=== PATIENT | female | born 1945 | race Caucasian/White ===

== ENCOUNTER 2019-01-22 13:05 | Emergency (ER) | payer MEDICARE, SELFPAY ==
[2019-01-22 13:06] VITALS: BP 129/70; PULSE 98; RESP 15; TEMP 37.1; O2SAT 94; BMI 26.5
[2019-01-22 13:15] VITALS: BP 125/57; PULSE 89; PULSE 94; RESP 16; RESP 18; TEMP 37.1; O2SAT 96
[2019-01-22 13:20] VITALS: O2SAT 96
--- NOTE | 2019-01-22 14:05 | CT_ITS ---
STUDY: CT CHEST WITHOUT CONTRAST REASON FOR EXAM: Female, 73 years old. Cough Diagnosis of pneumonia. History of lung cancer RADIATION DOSAGE (If Supplied By Facility): CTDIvol = ( 9.43 ) mGy, DLP = ( 317.95 ) mGycm TECHNIQUE: Transaxial imaging was performed without the administration of intravenous contrast material. Individualized dose optimization techniques were used for this CT. COMPARISON: October 19, 2013 chest radiograph. FINDINGS: There is left lower lobe airspace disease noted with likely postoperative changes in the left hilar region. Platelike atelectasis and/or scarring also seen in the left lower lobe. Small ill-defined nodule in the right upper lobe measuring up to 4 mm which can be assessed with follow-up chest CT. Bilateral emphysematous changes. Reduced left-sided lung volume possibly relate with postoperative changes. Coronary vascular calcifications. Calcifications of the thoracic aorta. Pericardial thickening versus trace amount pericardial fluid. Small hiatal hernia. Small low-attenuation lesion in the left adrenal gland measuring up to 1.3 cm possibly adrenal adenoma Right-sided central line noted. Nonenlarged mediastinal lymph nodes. Degenerative changes in the thoracic spine with mild wedging of the T10 vertebral body possibly chronic. No retropulsion. IMPRESSION: Left perihilar and lower lobe airspace disease with postsurgical changes in the left hilum and reduced left-sided lung volume. Small nodule in the right upper lobe which can be assessed with follow-up chest CT in 3-6 months. Bilateral emphysema. Small left adrenal lesion likely an adenoma. Electronically Signed: Flynn Neves, at 14:58 EDT Tel , Service support , CT/Chest without Contrast
--- NOTE | 2019-01-22 15:27 | ED.DCSUM_ITS ---
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 She has undergone chemotherapy and radiation. Patient states that she was recently given a course of doxycycline for a cough. She states it did improve for short time but worsened again. She feels like she is a tickle in her throat causing her cough and does not have chest pain or tightness. Patient states that she was told about 2 weeks after her last CAT scan that it actually showed a left lower lobe pneumonia and that was when she was given doxycycline. Patient went to the urgent care today and was sent to the emergency room. Patient denies fever or chills. She has a dry hacking cough. She denies lung tightness, shortness of breath, or chest pain. - Past Medical History (1) Anxiety Status: Chronic (2) Brain mass Status: Chronic (3) Lung cancer Status: Chronic (4) Seizure Status: Chronic Past Medical History - Allergies and Home Meds Allergies/Adverse Reactions: Allergies Penicillins Allergy (Verified 01/22/19 13:06) Rash Primary Care Physician: Hipolito Renee MD [Primary Care Provider] - Doctors: Dr. Cardona Prior records reviewed: Yes Past Medical History: - - Reviewed Lives: Spouse/ Significant Other Smoking Status: Former smoker Review of Systems General: Denies: Chills, Fever Eyes: Denies: Visual changes - bilaterally ENT: Reports: - - Tickle in throat but no ear or throat pain.. Denies: Bilateral ear pain, Sore throat Cardiovascular: Denies: Chest pain, Palpitations Respiratory: Reports: Cough, Sputum. Denies: Dyspnea Gastrointestinal: Denies: Abdominal pain, Nausea, Vomiting Genitourinary: Denies: Dysuria Musculoskeletal: Reports: Back pain. Denies: Myalgias Neurological: Denies: Headache Endocrine: Denies: Polyuria, Polydipsia Hematologic: Denies: Easy bruising Allergy: Denies: Uticaria Physical Exam Vital Signs/Narrative: Vital Signs Temp Pulse Resp BP Pulse Ox 01/22/19 13:15 98.8 F 89 18 125/57 H 96 01/22/19 13:06 98.8 F 98 15 129/70 H 94 Inital Vital Signs reviewed: Yes General: Well nourished, Well developed ENT: Moist mucous membranes Neck: Supple Cardiovascular: Regular rate, Regular rhythm Respiratory: No distress, CTA bilaterally Abdomen: Soft, Nontender, Nondistended Extremities: Nontender, No edema Skin: Normal color, No rash Neurological: Alert, Oriented x3 Psychological: Normal affect Diagnostic/Tx/Re-eval Impressions Chest CT 01/22/19 14:05 IMPRESSION: Left perihilar and lower lobe airspace disease with postsurgical changes in the left hilum and reduced left-sided lung volume. Small nodule in the right upper lobe which can be assessed with follow-up chest CT in 3-6 months. Bilateral emphysema. Small left adrenal lesion likely an adenoma. Electronically Signed: Flynn Neves, at 14:58 EDT Tel , Service support , - Medical Decision Making I reviewed the CT report from the CAT scan of the chest performed in late November at [facility]. Today's reading sounds very similar in the left lower lobe consolidation that is noted is likely secondary to her tumor and not actual pneumonia. I spoke with Dr. Cardona. Because patient has been on 2 courses of antibiotics to cover atypicals and will improve for short time, should be treated with a short course of Levaquin. Patient is to follow-up with Dr. Cardona early next week. She is in agreement. ED Disposition - Plan for ED Patient: Disposition: Home or Assisted Living Instructions: BRONCHITIS, Antiobiotic Treatment (Adult) Prescriptions: Levofloxacin [Levaquin] 750 mg PO DAILY #4 tablet Referrals: Hipolito Renee MD [Primary Care Provider] - Mario Cardona DO [STAFF PHYSICIAN] - 3-5 Days
[2019-01-22] MEDS: levoFLOXacin 750 MG Tablet PO (15:51)
== END 2019-01-22 15:53 | disposition home or self-care (01) ==
PROVIDERS: Emergency Provider Emergency Medicine; Family Provider Family Medicine; PCP Family Medicine
DX: J40 Bronchitis, not specified as acute or chronic (principal); Z88.0 Allergy status to penicillin; Z85.118 Personal history of other malignant neoplasm of bronchus and lung; F41.9 Anxiety disorder, unspecified; C79.31 Secondary malignant neoplasm of brain
CPT/HCPCS: 71250; 99283

== ENCOUNTER 2020-08-23 14:26 | Outpatient (RCR) | payer MEDICARE, SELFPAY ==
[2020-08-23] MEDS: COVID-19 VACC, MRNA(PFIZER)/PF 30 MCG/0.3 ML SYRINGE IM (15:54)
[2020-09-13] MEDS: COVID-19 VACC, MRNA(PFIZER)/PF 30 MCG/0.3 ML SYRINGE IM (15:03)
== END 2020-11-27 23:59 ==
LOC: IMMUN 14:26
PROVIDERS: PCP Family Medicine; Visit Provider Family Medicine
DX: Z23 Encounter for immunization (principal)
CPT/HCPCS: 0001A; 0002A; 91300

== ENCOUNTER 2021-02-15 21:30 | Emergency (ER) | payer MEDICARE, SELFPAY ==
[2021-02-15 21:31] VITALS: BP 126/68; PULSE 84; RESP 18; TEMP 35.7; O2SAT 99; BMI 26.9
--- NOTE | 2021-02-15 23:39 | EX.ED.DYSGE1 ---
HPI History of Present Illness Chief Complaint: Allergic Reaction Informant: patient Onset/Context/Timing Onset: Today Context: Sudden Onset Timing: Continuous Quality: Swelling Location: Right thumb and throat Worsened by: Nothing Relieved by: Baking soda paste and salt paste Narrative Narrative: Patient presents with yellowjacket sting to her right thumb that occurred today. Patient states she was stung multiple times by yellow jacket on her right thumb area. Patient states that after this she noted some redness to her thumb. Patient states she also felt some swelling and tightness in her throat. Patient states she used baking soda paste and a salt paste which helped with the sting sites. Patient denies any difficulty swallowing or shortness of breath. PFSH PFSH Home Medications docusate sodium [DOK] 100 mg PO BID 11/17/13 [History Last Taken Unknown] famotidine 20 mg PO BID 11/17/13 [History Last Taken Unknown] levofloxacin 750 mg PO DAILY #4 tab 01/22/19 [Rx Last Taken Unknown] Allergy/AdvReac Type Severity Reaction Status Date / Time Penicillins Allergy Rash Verified 01/22/19 13:06 Surgical History (Updated 02/15/21 @ 23:[address] Leighton Palomo DO) Hx of brain surgery Social History Smoking Status: Former smoker ROS ROS ED Constitutional Constitutional ED: Denies chills or fever(s) Eyes Eyes: Denies blurry vision or change in vision ENT ENT ED: Reports sore throat; Denies rhinorrhea Cardiovascular Cardiovascular: Denies chest pain or palpitations Respiratory/Chest Respiratory/Chest: Denies cough or dyspnea Gastrointestinal Gastrointestinal: Denies nausea or vomiting Genitourinary Genitourinary ED: Denies dysuria or hematuria Musculoskeletal Musculoskeletal: Reports neck pain; Denies back pain Integumentary Reports rash; Denies abscess Neurologic Neurologic: Denies headache(s) or weakness Allergic/Immunologic Allergic/Immunologic ED: Denies mouth swelling or urticaria EXAM Physical Exam Const Vital Signs: 02/15/21 21:31 Temperature 96.2 F L Temperature Source Temporal Pulse Rate 84 Respiratory Rate 18 Blood Pressure 126/68 H Blood Pressure Mean 87 Pulse Ox 99 Oxygen Delivery Method Room Air Positive well nourished and well developed General Appearance ED: well developed HEENT Reports moist mucous membranes HEENT Narrative: Oropharynx is clear. Airway is patent. Neck supple and no JVD Neuro oriented x3, CN's II-XII intact bilaterally and no sensory deficits noted Sensorium / Orientation: alert Motor Exam: strength 5/5 throughout Psych mental status grossly normal Skin Skin Narrative: There is some mild erythema over the right thumb and first web space. There are no stingers noted at the site. Sensation was intact to light touch in the radial, median, and ulnar areas. Strength is 5/5 in the radial, median, and ulnar areas. Radial pulses are equal bilaterally. Capillary refill was less than 2 seconds in all digits. There are no petechia noted. MDM MDM MDM Narrative Medical decision making narrative: Patient was advised that this is not a systemic reaction and steroids are not necessary at this time. Patient was instructed to continue using Benadryl as needed for any itching or swelling. Patient was instructed to follow-up with her primary care physician in 5 to 7 days. Patient understood and was agreeable with the plan. All questions were answered. Discharge Plan Triage Chief Complaint: Allergic Reaction ED Provider: Leighton Palomo Dx/Rx/DC Orders Clinical Impression: Local reaction to hymenoptera sting Instructions: ED Insect Sting, Local Reaction Prescriptions: No Action famotidine 20 MG tablet 20 mg PO BID RF: 0 docusate sodium [DOK] 100 MG capsule 100 mg PO BID RF: 0 levofloxacin 750 MG tablet 750 mg PO DAILY Qty: 4 RF: 0 Primary Care Provider: Hipolito Renee Referrals: Hipolito Renee MD [Primary Care Provider] - 5-7 Days Disposition Disposition: Home, Self Care
== END 2021-02-16 00:04 | disposition home or self-care (01) ==
LOC: ED 02-16
PROVIDERS: Emergency Provider Emergency Medicine; PCP Family Medicine
DX: T78.40XA Allergy, unspecified, initial encounter (principal); Z87.891 Personal history of nicotine dependence
CPT/HCPCS: 99281; 99282

== ENCOUNTER 2022-03-27 12:44 | Emergency (ER) | payer MEDICARE, SELFPAY ==
[2022-03-27 12:45] VITALS: BP 131/83; PULSE 93; RESP 16; TEMP 36.9; O2SAT 98; BMI 26.0
--- NOTE | 2022-03-27 14:56 | EX.ED.DYSGE1 ---
HPI History of Present Illness Chief Complaint: Palpitations Detail of Chief Complaint: Palpitations Informant: patient Narrative Narrative: Patient was sent to the emergency department to be evaluated for an irregular heart beat. Patient states that she was at urgent care today because she developed symptoms of a UTI and she was diagnosed with a UTI there. While there the physician told her that her heart sounded irregular and to get evaluated for this. Patient has no sensation of any irregular heartbeat. She denies any chest pain. She denies shortness of breath. Patient currently in the process of finishing Tessalon Perles for her sinus congestion that she has had. Patient was started on Bactrim today. Patient also states that she had a CT scan of the chest and abdomen today that was routine to monitor her history of lung cancer. Patient was given IV contrast and p.o. contrast for this. Patient also states that she had blood work performed today and she was able to show me her CBC with differential as well as her chemistries that were done today. Patient was told that this irregular heartbeat was probably nothing but that she should be evaluated. Prior similar symptoms: No PFSH PFSH Home Medications docusate sodium 100 mg capsule (DOK) 100 mg PO BID 11/17/13 [History Last Taken Unknown] famotidine 20 mg tablet 20 mg PO BID 11/17/13 [History Last Taken Unknown] levofloxacin 750 mg tablet 750 mg PO DAILY #4 tabs 01/22/19 [Rx Last Taken Unknown] Allergy/AdvReac Type Severity Reaction Status Date / Time Penicillins Allergy Rash Verified 03/27/22 12:47 Surgical History Hx of brain surgery Social History Smoking Status: Never smoker ROS ROS ED Review of Systems ROS Unobtainable: other Constitutional Constitutional ED: Reports lethargy; Denies chills, fever(s), sweats or weight loss Eyes Eyes: Denies blurry vision, change in vision or diplopia ENT ENT ED: Denies rhinorrhea or sore throat Cardiovascular Cardiovascular: Reports palpitations; Denies chest pain, orthopnea or racing heartbeat Respiratory/Chest Respiratory/Chest: Denies cough, dyspnea, dyspnea on exertion, orthopnea or sputum Gastrointestinal Gastrointestinal: Denies abdominal pain, diarrhea, nausea or vomiting Genitourinary Genitourinary ED: Denies dysuria, hematuria or urinary frequency Musculoskeletal Musculoskeletal: Denies arthralgias, back pain, myalgias or neck pain Integumentary Denies abscess, Abrasions or rash Neurologic Neurologic: Denies headache(s) or weakness Psychiatric Psychiatric: Denies anxiety, depression or suicidal thoughts Endocrine Endocrinology: Denies polydipsia, polyphagia or polyuria Hematologic/Lymphatic Hematologic/Lymphatic: Denies easy bleeding, easy bruising or lymphadenopathy Allergic/Immunologic Allergic/Immunologic ED: Denies mouth swelling, tongue swelling or urticaria EXAM Physical Exam Const Vital Signs: 03/27/22 12:45 03/27/22 14:00 Temperature 98.5 F Temperature Source Temporal Pulse Rate 93 Respiratory Rate 16 Respiratory Effort Normal Non-Labored Respiratory Pattern Normal Blood Pressure 131/83 H Blood Pressure Mean 99 Pulse Ox 98 Oxygen Delivery Method Room Air Positive well nourished and well developed General Appearance ED: well developed and NAD HEENT Reports TM's clear and moist mucous membranes normocephalic and atraumatic; Negative for trauma or tenderness Tympanic Membrane ED: Yes TM's clear Eyes PERRL and EOMs intact bilaterally General Eye ED: Negative for pale conjunctiva or scleral icterus Neck no lymphadenopathy, supple and no JVD General: Negative for tenderness Chest Wall inspection of chest normal and palpation of chest normal Chest: Negative for tenderness Resp normal respiratory effort and clear to auscultation bilaterally Effort and Inspection: Negative for respiratory distress or pain with movement Auscultation: Negative for rhonchi, wheezes or diminished lung sounds Cardio regular rhythm, S1 normal heart sound, S2 normal heart sound and no murmurs Rhythm: abnormal rhythm ectopic beats Peripheral Pulses: pulses 2+ throughout GI normal to inspection, nondistended, normoactive bowel sounds, soft to palpation, non-tender, non-distended and no masses Back/Spine no CVA tenderness and no thoracic nor lumbar tenderness Extremity normal to inspection General Extremety ED: Negative for edema General Extremity: Negative for edema Neuro oriented x3, CN's II-XII intact bilaterally, no sensory deficits noted and gait normal Sensorium / Orientation: awake, alert, oriented to person, oriented to place and oriented to time Motor Exam: strength 5/5 throughout and strength abnormal Psych mental status grossly normal Skin no rashes or lesions noted and no wounds MDM MDM MDM Narrative Medical decision making narrative: EKG obtained showed frequent PACs. Patient is unaware of these. Patient does have ectopy on auscultation. Patient's electrolytes were normal and she is asymptomatic. Vital feel any other intervention or diagnostics are warranted today. Patient will follow-up with primary care physician as needed. Patient advised to return if chest pain, shortness of breath, or condition should worsen anyway. Lab Data Attestation: I reviewed the patient's lab results. EKG Initial EKG: Attestation: I personally reviewed and interpreted this EKG as follows: Comments: Sinus rhythm with a rate of 91 bpm with frequent PACs Discharge Plan Triage Chief Complaint: Palpitations ED Provider: Holly Jurado Dx/Rx/DC Orders Clinical Impression: Atrial contractions, premature Instructions: ED Palpitations Prescriptions: No Action famotidine 20 MG tablet 20 mg PO BID Label Comments: STOMACH docusate sodium [DOK] 100 MG capsule 100 mg PO BID Label Comments: STOOL SOFTENER levofloxacin 750 MG tablet 750 mg PO DAILY Qty: 4 0RF Primary Care Provider: Hipolito Renee Referrals: Hipolito Renee MD [Primary Care Provider] - 5-7 Days Disposition Disposition: Home, Self Care
== END 2022-03-27 15:11 | disposition home or self-care (01) ==
PROVIDERS: Emergency Provider Emergency Medicine; PCP Family Medicine; Visit Provider Emergency Medicine
DX: I49.1 Atrial premature depolarization (principal)
CPT/HCPCS: 93005; 99283

== ENCOUNTER 2023-08-16 16:21 | Emergency (ER) | payer MEDICARE, SELFPAY ==
[2023-08-16 16:22] VITALS: BP 163/80; PULSE 113; RESP 16; TEMP 36.5; O2SAT 100; BMI 25.7
--- NOTE | 2023-08-16 16:34 | EKG12_ITS ---
Test Reason : CP Blood Pressure : / mmHG Vent. Rate : 095 BPM Atrial Rate : 095 BPM P-R Int : 148 ms QRS Dur : 076 ms QT Int : 354 ms P-R-T Axes : 045 -32 056 degrees QTc Int : 444 ms Normal sinus rhythm Left axis deviation Abnormal ECG Confirmed by CHEL CRAWLEY, DOMINICK ([id number]), city editor TANNER HARDING ([id number]) on 08/24/2023 9:42:29 AM Referred By: ATA Confirmed By:BARRINGTON MILLIGAN MD
--- NOTE | 2023-08-16 16:36 | ED.VIS.CHEST ---
HPI History of Present Illness Chief Complaint: Chest Pain Narrative Narrative: 78-year-old female past medical history of anxiety, presents with chest discomfort that she had on and off yesterday, but has been constant since this morning when she woke, greater than 6 hours. She denies any nausea or vomiting. No fevers or chills, no cough, no diaphoresis. No real exacerbating or alleviating factors but she states she has a history of GERD which it feels similar to to some degree. She also took Ativan 0.5 mg without relief because she states that she has had a lot of stressors in her life. She states that she has this pain off and on like she did yesterday, but it usually goes away. This time, it did not. She denies any problems with bowel movements. No other symptoms. She is describing a discomfort in her chest more towards the epigastrium and radiating upward. [facility] Medical History (Updated 08/16/23 @ 18:10 by Carlos Tuttle MD) Lung cancer metastatic to brain Home Medications docusate sodium 100 mg capsule (DOK) 100 mg PO BID 11/17/13 [History Last Taken Unknown] famotidine 20 mg tablet 20 mg PO BID 11/17/13 [History Last Taken Unknown] levofloxacin 750 mg tablet 750 mg PO DAILY #4 tabs 01/22/19 [Rx Last Taken Unknown] Allergy/AdvReac Type Severity Reaction Status Date / Time Penicillins Allergy Rash Verified 08/16/23 16:24 Surgical History Hx of brain surgery Social History Smoking Status: Never smoker ROS ROS ED ROS Narrative Constitutional: No fever, no chills. HEENT: No sore throat. No neck pain. No loss of vision. No rhinorrhea. Cardiovascular: Positive midsternal chest discomfort /chest pain. No palpitations. No pedal edema. Respiratory: No cough, no shortness of breath. Abdominal: No abdominal pain. No nausea. No vomiting. Genitourinary: No dysuria. No hematuria. Musculoskeletal: No myalgias. No arthralgias. Neurologic: No headaches. No dizziness. No lightheadedness. Skin: No rash. No change in color. Psychiatric: No depression. Mild anxiety. EXAM Physical Exam Narrative Exam Narrative: Afebrile. Vital signs noted. HEENT: Normocephalic. Atraumatic. PERRL, EOMI. Neck soft and supple. No point tenderness or step off. Cardiovascular: Regular rate and rhythm. No murmurs, rubs, or gallops appreciated. Respiratory: No tachypnea. Lungs clear to auscultation bilaterally. Gastrointestinal: Abdomen soft, nontender, with normoactive bowel sounds. No rebound or guarding. Neurological: Awake. Alert. Nonfocal, nonlateralizing. Skin: No rash. Normal color. No pallor. Musculoskeletal: No pedal edema. Full range of motion extremities. Const Vital Signs: 08/16/23 16:22 08/16/23 16:53 08/16/23 16:53 Temperature 97.7 F L Temperature Source Temporal Pulse Rate 113 H 87 Respiratory Rate 16 19 H Respiratory Effort Blood Pressure 163/80 H 116/51 L Blood Pressure Mean 107 72 Pulse Ox 100 98 Oxygen Delivery Method Room Air Room Air Room Air 08/16/23 16:55 Temperature Temperature Source Pulse Rate Respiratory Rate Respiratory Effort Normal Non-Labored Blood Pressure Blood Pressure Mean Pulse Ox Oxygen Delivery Method MDM MDM MDM Narrative Medical decision making narrative: In the differential diagnosis is GERD versus pancreatitis versus ACS. I have low suspicion for pulmonary embolism as her pulse ox is 100% on room air, and on her EKG she is not tachycardic, and the history and physical does not support pulmonary embolism. She will be given a GI cocktail. EKG was obtained and interpreted by myself independently as normal sinus rhythm at 95 bpm without ectopy or acute ST changes. No STEMI. I reviewed her laboratory work and she has a normal white count of 6.5, hemoglobin normal at 12.9, hematocrit 41.0, platelet count normal at 265. Sodium is normal at 141 with potassium slightly low at 3.4 which I think is nonspecific, BUN of 21 with creatinine 0.85. Glucose is appropriately elevated at 135 with an anion gap low at 4. Lipase is normal at 29 so I do not think she has pancreatitis. Troponin is 8 and this is greater than a 6-hour troponin. I do not feel she requires serial enzymes. She states that she is feeling mildly improved after GI cocktail. She is resting comfortably. I do not feel she requires observation or admission at this time. I feel she can be discharged to follow-up with her primary care provider. She may need to see gastroenterology for upper endoscopy in the future. Additionally, she states she used to take 2 of her [id number] GERD medications, but only went down to 1 pill/day. She may need to increase this as well to control her symptoms. I feel she can be discharged to follow-up. Return instructions were reviewed. Disposition is discharged home in stable condition. History & Record Review Discussion w/independent historian: Patient Additional record(s) reviewed:: Prior ED visit Lab Data Attestation: I reviewed the patient's lab results. Labs: Laboratory Results - last 24 hr 08/16/23 16:50 WBC 6.5 RBC 4.79 Hgb 12.9 Hct 41.0 MCV 85.6 MCH 26.9 L MCHC 31.5 L RDW Std Deviation 40.0 RDW Coeff of Joycelyn 12.9 Plt Count 265 MPV 10.8 Immature Gran % (Auto) 0.300 Neut % (Auto) 80.3 H Lymph % (Auto) 12.6 L Vigo % (Auto) 5.1 Eos % (Auto) 0.9 Baso % (Auto) 0.8 Absolute Neuts (auto) 5.2 Absolute Lymphs (auto) 0.82 L Nucleated RBC % 0 Sodium 141 Potassium 3.4 L Chloride 107 Carbon Dioxide 30.0 Anion Gap 4 L BUN 21 H Creatinine 0.85 Estim Creat Clear Calc 49.81 Est GFR (MDRD) Af Amer 83 Est GFR (MDRD) Non-Af 69 BUN/Creatinine Ratio 24.7 H Glucose 135 H Calcium 9.3 Troponin I High Sens 8 Lipase 29 Radiography Diagnostic Testing: Clinical Impression(s) from Imaging Studies Chest X-Ray 08/16/23 17:03 IMPRESSION: There are no acute findings. Electronically Signed: Jose Fragoso MD at 17:52 EST , Discharge Plan Triage Chief Complaint: Chest Pain ED Provider: Carlos Tuttle Dx/Rx/DC Orders Clinical Impression: Chronic GERD, Chest pain Instructions: ED Chest Pain, Uncertain Cause, ED GERD (Adult) Prescriptions: No Action famotidine 20 MG tablet 20 mg PO BID Patient Comments: STOMACH docusate sodium [DOK] 100 MG capsule 100 mg PO BID Patient Comments: STOOL SOFTENER levofloxacin 750 MG tablet 750 mg PO DAILY Qty: 4 0RF Primary Care Provider: Hipolito Renee Referrals: Hipolito Renee MD [Primary Care Provider] - 3-5 Days if not improving Activity Restrictions/Additional Instructions: You may want to increase your GERD medication back to 2 pills a day. Follow-up with your primary care provider as you may need to see a unionmelt operator for upper endoscopy. Disposition Disposition: Home, Self Care
[2023-08-16 16:53] VITALS: BP 116/51; PULSE 87; RESP 19; O2SAT 98
[2023-08-16] MEDS: Mag Hydrox/Al Hydrox/Simeth 30 ML UDC PO (16:56)
[2023-08-16 17:01] LABS: Absolute Lymphocyte Count 0.82 X10^3/uL (0.83-4.51); Absolute Neutrophil Count 5.2 X10^3/uL (2.0-7.7); Basophil# 0.05 X10^3/uL; Basophil% 0.8 % (0-1); Eosinophil# 0.06 X10^3/uL; Eosinophils% 0.9 % (0-5); Hemoglobin 12.9 g/dL (12.0-15.0); Lymphocyte # 0.82 X10^3/ul (0.83-4.51); Lymphocyte % 12.6 % (19-41); Mean Corp Hgb Conc 31.5 g/dL (32-36); Mean Corpuscular Hgb 26.9 pg (27.0-32.0); Mean Corpuscular Volume 85.6 fL (81-99); Mean Platelet Vol. 10.8 fl (6.2-12.0); Monocyte# 0.33 X10^3/uL; Monocyte% 5.1 % (0-10); NRBC Flagged by Analyzer 0 % (0-5); Neutrophil # 5.22 X10^3/uL (2.7-7.7); Neutrophil % 80.3 % (47-70); Platelet Count 265 K/mm3 (150-450); RBC Distribution Width CV 12.9 % (11.6-14.6); Red Blood Count 4.79 M/mm3 (4.2-5.4); White Blood Count 6.5 K/mm3 (4.4-11.0)
--- NOTE | 2023-08-16 17:03 | RAD_ITS ---
STUDY: XR Chest 1 View 08/16/2023 5:00 PM REASON FOR EXAM: Female, 78 years old. chest pain COMPARISON: 10/19/2013 TECHNIQUE: XR Chest 1 View FINDINGS: There is no demonstrated pleural abnormality. Right ported catheter. Normal heart size. Normal mediastinum. Stable scarring of the left nick. There is pleural extension. Prominent appearing increased interstitial lung markings. Normal visualized pulmonary arteries. There is atherosclerotic calcification of the aortic arch with tortuosity. There are diffuse degenerative changes of the visualized thoracic spine. There is degenerative osteoarthritis of the bilateral shoulders. There are no acute findings of the upper abdomen. RAD/Chest 1 View (Portable) IMPRESSION: There are no acute findings. Electronically Signed: Jose Fragoso MD at 17:52 EST ,
--- OUTSIDE RECORDS SUMMARY | 2023-08-16 17:15 | XMS RPT_ITS | CCD ---
Author Name Unknown Address [address] [place] [address] Organization [facility] Care Team Providers Care Dosimetrist Name Role Phone Elaine Arteaga MD Primary Care Provider Unavailable Primary Care Provider Unavailabl e Elaine Arteaga MD Primary Care Provider Elaine Arteaga MD Primary Care Provider Elaine Arteaga MD Primary Care Provider RONAK SARKAR Referring Unavailable ELAINE ARTEAGA Primary Care Unavailable MARIO CARDONA Referring Unavailable ELAINE ARTEAGA Primary Care Unavailable ELAINE ARTEAGA Primary Care Unavailable MASCMARIO Marcial Referring Unavailable MASCMARIO Marcial Referring Unavailable ELAINE ARTEAGA Primary Care Unavailable MARIO CARDONA Referring Unavailable ELAINE ARTEAGA Primary Care Unavailable MASCIMARIO Referring Unavailable ELAINE ARTEAGA Primary Care Unavailable MASCIMARIO Referring Unavailable ELAINE ARTEAGA Primary Care Unavailable Inna TAYLOR Attending Unavailable ELAINE ARTEAGA Primary Care Unavailable MASCMARIO Marcial Referring Unavailable ELAINE ARTEAGA Primary Care Unavailable MASCI, MARIO A Referring Unavailable ELDERELAINE PERKINS Primary Care Unavailable MASCI, MARIO Restrepo Referring Unavailable CLEO PAUL Attending Unavailable ELDERELAINE PERKINS Primary Care Unavailable MASCMARIO Marcial Attending Unavailable MARIO CARDONA Referring Unavailable ELAINE ARTEAGA Primary Care Unavailable MASCI, MARIO A Referring Unavailable ELAINE ARTEAGA Primary Care Unavailable MASCI, MARIO A Referring Unavailable ELAINE ARTEAGA Primary Care Unavailable RONAK SARKAR Attending Unavailable MARIO CARDONA Referring Unavailable ELAINE ARTEAGA Primary Care Unavailable MASCMARIO Marcial A Referring Unavailable MARIO CARDONA Attending Unavailable ELAINE ARTEAGA Primary Care Unavailable ARTIE BONDS Referring Unavailable PELON, ARTIE Angel Attending Unavailable ELDERBROCK, ELAINE D Primary Care Unavailable JOSE ALFREDODORCAS Referring Unavailable ELDERBROCK, ELAINE D Primary Care Unavailable MASCI, MARIO A Referring Unavailable MASCI, MARIO A Attending Unavailable ELDERBROCK, ELAINE D Primary Care Unavailable PELON, ARTIE P Attending Unavailable MEMECLEO Referring Unavailable ELDERBROCK, ELAINE D Primary Care Unavailable PELON, ARTIE P Attending Unavailable ELDERBROCK, ELAINE D Primary Care Unavailable MASCI, MARIO A Referring Unavailable ELDERBROCK, ELAINE D Primary Care Unavailable PELON, ARTIE P Attending Unavailable MASCI, MARIO A Referring Unavailable ELDERBROCK, ELAINE D Primary Care Unavailable ELDERBROCK, ELAINE D Primary Care Unavailable ASHLEY QUINONES Attending Unavailable MASCI, MARIO A Referring Unavailable ELDERBROCK, ELAINE D Primary Care Unavailable MASCI, MARIO A Referring Unavailable ELDERBROCK, ELAINE D Primary Care Unavailable PELON, ARTIE P Attending Unavailable ELDERBROCK, ELAINE D Primary Care Unavailable MASCI, MARIO A Referring Unavailable ELDERBROCK, ELAINE D Primary Care Unavailable PELON, ARTIE P Attending Unavailable PELON, ARTIE P Referring Unavailable ELDERBROCK, ELAINE D Primary Care Unavailable ELDERBROCK, ELAINE D Primary Care Unavailable PELON, ARTIE P Referring Unavailable PELON, ARTIE P Attending Unavailable ELDERBROCK, ELAINE D Primary Care Unavailable MASCI, MARIO A Referring Unavailable ELDERBROCK, ELAINE D Primary Care Unavailable ELDERBROCK, ELAINE D Primary Care Unavailable ELDERBROCK, ELAINE D Attending Unavailable MASCI, MARIO A Referring Unavailable ELDERBROCK, ELAINE D Primary Care Unavailable MASCI, MARIO A Referring Unavailable ELDERBROCK, ELAINE D Primary Care Unavailable Inna TAYLOR Referring Unavailable ELDERBROCK, ELAINE Jackelin Primary Care Unavailable MASCI, MARIO A Attending Unavailable MASCI, MARIO A Referring Unavailable ELDERBROCK, ELAINE D Primary Care Unavailable Inna TAYLOR Attending Unavailable ELDERBROCK, ELAINE D Primary Care Unavailable Allergies Allergy Classification Reported Allergen(s) Allergy Type Date of Onset Reaction(s) Facility (7 sources) Penicillins; Translations: [PENICILLINS] Propensity to adverse reactions 12-20-2009 Intolerance [facility] (20 sources) Penicillins Propensity to adverse reactions 12-20-2009 Intolerance [facility] Medications Current Medications Medication Drug Class(es) Dates Sig (Normalized) Sig (Original) enteric contrast (will be provided with radiology test) (1 source) Start: 05-28-2022 End: 05-29-2022 enteric contrast (will be provided with radiology test) Indications: Primary malignant neoplasm of left lung (HCC) , Brain metastasis (HCC) For CT CHESTABD/PEL W IVCON Routine order Administer, As Directed One Time Only, via Oral, Rectal, both Oral and Rectal, Enteric Tube, Stoma or Indwelling Catheter, Enteric Contrast as designated per enteric contrast guidelines 1 Each 0 05/28/2022 05/29/2022 Active Completed/Discontinued Medications Medication Drug Class(es) Dates Sig (Normalized) Sig (Original) acetaminophen 500 mg oral tablet (20 sources) take 2 tablets by mouth every eight hours as needed acetaminophen (TYLENOL) 500 mg tablet Take 1,000 mg by mouth every 8 hours as needed. 0 Active Problems Active Problems Problem Classification Problem Date Documented Da te Episodic/Chronic Anxiety disorders (20 sources) Anxiety neurosis ; Translations: [Generalized anxiety disorder] Onset: 7 08-01-2016 Chronic Cancer of bronchus; lung (20 sources) Malignant neoplasm of lower respiratory tract; Translations: [Malignant neoplasm of unspecified part of unspecified bronchus or lung] Onset: 5 Chronic Cancer of colon (16 sources) Malignant tumor of sigmoid colon; Translations: [Malignant neoplasm of sigmoid colon] Onset: 3 Chronic Deficiency and other anemia (11 sources) Iron deficiency anemia due to blood loss; Translations: [Iron deficiency anemia secondary to blood loss (chronic)] Chronic Esophageal disorders (20 sources) Gastroesophageal reflux disease; Translations: [Gastro-esophageal reflux disease without esophagitis] Onset: 7 08-01-2016 Chronic Fluid and electrolyte disorders (1 source) Low serum potassium level - finding; Translations: [Hypokalemia] Episodic Immunizations and screening for infectious disease (1 source) Needs influenza immunization; Translations: [Encounter for immunization] 04-10-2023 Episodic Malaise and fatigue (5 sources) Malaise and fatigue; Translations: [Other malaise] Episodic Nonspecific chest pain (1 source) Tight chest; Translations: [Other chest pain] Episodic Other and unspecified benign neoplasm (20 sources) Benign neoplasm of meninges; Translations: [Benign neoplasm of meninges, unspecified] Onset: 3 Chronic Other and unspecified benign neoplasm (1 source) Benign neoplasm of meninges, unspecified; Translations: [Benign neoplasm of meninges (HCC)] Onset: 3 Chronic Other gastrointestinal disorders (20 sources) Malabsorption - iron; Translations: [Intestinal malabsorption, unspecified] Onset: 9 07-01-2018 Chronic Other nervous system disorders (3 sources) Sensory neuropathy; Translations: [Polyneuropathy, unspecified] Chronic Other nervous system disorders (1 source) Small fiber neuropathy; Translations: [Polyneuropathy, unspecified] Chronic Other nervous system disorders (1 source) Polyneuropathy, unspecified; 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] Onset: 3 Chronic Other nervous system disorders (2 sources) Paresthesia of upper limb; Translations: [Anesthesia of skin] Episodic Other non-traumatic joint disorders (2 sources) Shoulder pain; Translations: [Pain in left shoulder] Episodic Other upper respiratory disease (1 source) Congestion of nasal sinus; Translations: [Nasal congestion] Episodic Secondary malignancies (20 sources) Secondary malignant neoplasm of brain; 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] Onset: 4 Chronic Secondary malignancies (20 sources) Secondary malignant neoplasm of brain and spinal cord; 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] Onset: 4 11-24-2013 Chronic Secondary malignancies (7 sources) Secondary malignant neoplasm of brain; 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)] Onset: 4 Chronic Secondary malignancies (2 sources) 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; 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)] Onset: 4 Chronic Thyroid disorders (6 sources) Acquired hypothyroidism; Translations: [Hypothyroidism, unspecified] Chronic Unclassified (1 source) Radiology NM Onset: 3 Past or Other Problems Problem Classification Problem Date Documented Date Episodic/Chronic Cardiac dysrhythmias (4 sources) Palpitations; Translations: [Palpitations] Onset: 07-23-2022 Episodic Deficiency and other anemia (20 sources) Iron deficiency anemia; Translations: [Iron deficiency anemia, unspecified] Onset: 12-06-2014 06-17-2021 Episodic Hemorrhoids (20 sources) Internal hemorrhoids; Translations: [Other hemorrhoids] Onset: 07-06-2014 07-06-2014 Episodic Other connective tissue disease (17 sources) Weakness of left leg; Translations: [Other symptoms and signs involving the musculoskeletal system] Onset: 11-30-2013 11-30-2013 Episodic Other connective tissue disease (20 sources) Other symptoms and signs involving the musculoskeletal system; Translations: [Other musculoskeletal symptoms referable to limbs] Onset: 11-30-2013 11-30-2013 Episodic Other lower respiratory disease (20 sources) Lung mass; Translations: [Other nonspecific abnormal finding of lung field] Onset: 10-31-2013 10-31-2013 Episodic Other lower respiratory disease (1 source) Other nonspecific abnormal finding of lung field; Translations: [Lung mass] Onset: 10-31-2013 Episodic Other nervous system disorders (20 sources) Paresthesia; Translations: [Paresthesia of skin] Onset: 10-24-2014 10-24-2014 Episodic Other nervous system disorders (20 sources) Gardner's palsy; 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] Onset: 11-16-2019 11-16-2019 Episodic Other nervous system disorders (1 source) Paresthesia of skin; Translations: [Paresthesias] Onset: 10-13-2022 Episodic Other screening for suspected conditions (not mental disorders or infectious disease) (20 sources) Patient encounter status; Translations: [Encounter for screening for malignant neoplasm of colon] Onset: 07-06-2014 07-06-2014 Episodic Residual codes; unclassified (20 sources) History of craniotomy; Translations: [Other specified postprocedural states] Onset: 12-06-2013 12-06-2013 Episodic Spondylosis; intervertebral disc disorders; other back problems (20 sources) Chronic low back pain; Translations: [Lumbago with sciatica, left side] Onset: 10-24-2020 10-24-2020 Episodic Results Test Name Value Interpretation Reference Range Facil ity Vital Signs Date Time Vital Sign Value Performing Clinician Nishant al 06-02-2023 10:00-0500 Body weight 64.86 kg Lab/Port Wstr Work Phone: [facility] 02-12-2023 13:47-0400 Diastolic blood pressure 58 mm[Hg] Artie Bonds MD Work Phone: [facility] 02-12-2023 13:47-0400 Heart rate 72 /min Artie Bonds MD Work Phone: [facility] 02-12-2023 13:47-0400 Respiratory rate 16 /min Artie Bonds MD Work Phone: [facility] 02-12-2023 13:47-0400 SaO2% (BldA) [Mass fraction] 94 % Artie Bonds MD Work Phone: [facility] 02-12-2023 13:47-0400 Systolic blood pressure 128 mm[Hg] Artie Bonds MD Work Phone: [facility] 02-12-2023 12:32-0400 Body temperature 97.2 [degF] Artie Bodns MD Work Phone: [facility] 01-20-2023 13:55-0400 Body height 160 cm Artie Bonds MD Work Phone: [facility] 01-20-2023 13:55-0400 Body temperature 97.7 [degF] Artie Bonds MD Work Phone: [facility] 01-20-2023 13:55-0400 Body weight 64.05 kg Artie Bonds MD Work Phone: [facility] 01-20-2023 13:55-0400 Diastolic blood pressure 72 mm[Hg] Artie Bonds MD Work Phone: [facility] 01-20-2023 13:55-0400 Heart rate 94 /min Artie Bonds MD Work Phone: [facility] 01-20-2023 13:55-0400 SaO2% (BldA) [Mass fraction] 98 % Artie Bonds MD Work Phone: [facility] 01-20-2023 13:55-0400 Systolic blood pressure 116 mm[Hg] Artie Bonds MD Work Phone: [facility] 12-16-2022 14:11-0400 Body height 160 cm Artie Bonds MD Work Phone: [facility] 12-16-2022 14:11-0400 Body temperature 97.3 [degF] Artie Bonds MD Work Phone: [facility] 12-16-2022 [id number] Body weight 63.96 kg Artie Bonds MD Work Phone: [facility] 12-16-2022 14:11-0400 Diastolic blood pressure 56 mm[Hg] Artie Bonds MD Work Phone: [facility] 12-16-2022 14:11-0400 Heart rate 85 /min Artie Bonds MD Work Phone: [facility] 12-16-2022 14:11-0400 SaO2% (BldA) [Mass fraction] 95 % Artie Bonds MD Work Phone: [facility] 12-16-2022 14:11-0400 Systolic blood pressure 108 mm[Hg] Artie Bonds MD Work Phone: [facility] 12-15-2022 11:41-0400 Body temperature 97.7 [degF] Mario Masci DO Work Phone: [facility] 12-15-2022 11:41-0400 Body weight 63.28 kg Mario Masci DO Work Phone: [facility] 12-15-2022 11:41-0400 Diastolic blood pressure 49 mm[Hg] Mario Masci DO Work Phone: [facility] 12-15-2022 11:41-0400 Heart rate 65 /min Mario Masci DO Work Phone: [facility] 12-15-2022 11:41-0400 SaO2% (BldA) [Mass fraction] 96 % Mario Masci DO Work Phone: [facility] 12-15-2022 11:41-0400 Systolic blood pressure 112 mm[Hg] Mario Masci DO Work Phone: [facility] 10-13-2022 08:42-0400 Body height 160 cm Ronak Sarkar MD Work Phone: [facility] 10-13-2022 08:42-0400 Body weight 63.5 kg Ronak Sarkar MD Work Phone: [facility] 10-13-2022 08:42-0400 Diastolic blood pressure 45 mm[Hg] Ronak Sarkar MD Work Phone: [facility] 10-13-2022 08:42-0400 Heart rate 80 /min Ronak Sarkar MD Work Phone: [facility] 10-13-2022 08:42-0400 Respiratory rate 16 /min Ronak Sarkar MD Work Phone: [facility] 10-13-2022 08:42-0400 SaO2% (BldA) [Mass fraction] 100 % Ronak Sarkar MD Work Phone: [facility] 10-13-2022 08:42-0400 Systolic blood pressure 116 mm[Hg] Ronak Sarkar MD Work Phone: [facility] 10-09-2022 14:04-0400 Body height 160 cm Artie Bonds MD Work Phone: [facility] 10-09-2022 14:04-0400 Body temperature 98.2 [degF] Artie Bonds MD Work Phone: [facility] 10-09-2022 14:04-0400 Body weight 63.5 kg Artie Bonds MD Work Phone: [facility] 10-09-2022 14:04-0400 Diastolic blood pressure 52 mm[Hg] Artie Bonds MD Work Phone: [facility] 10-09-2022 14:04-0400 Heart rate 107 /min Artie Bonds MD Work Phone: [facility] 10-09-2022 14:04-0400 SaO2% (BldA) [Mass fraction] 97 % Artie Bonds MD Work Phone: [facility] 10-09-2022 14:04-0400 Systolic blood pressure 108 mm[Hg] Artie Bonds MD Work Phone: [facility] 10-02-2022 13:09-0400 Diastolic blood pressure 60 mm[Hg] Artie Bonds MD Work Phone: [facility] 10-02-2022 13:09-0400 Heart rate 70 /min Artie Bonds MD Work Phone: [facility] 10-02-2022 13:09-0400 Respiratory rate 16 /min Artie Bonds MD Work Phone: [facility] 10-02-2022 13:09-0400 SaO2% (BldA) [Mass fraction] 94 % Artie Bonds MD Work Phone: [facility] 10-02-2022 13:09-0400 Systolic blood pressure 124 mm[Hg] Artie Bonds MD Work Phone: [facility] 10-02-2022 11:11-0400 Body temperature 98.2 [degF] Artie Bonds MD Work Phone: [facility] 09-17-2022 10:49-0400 Body temperature 98.6 [degF] Mario Masci DO Work Phone: [facility] 09-17-2022 10:49-0400 Body weight 64.64 kg Mario Masci DO Work Phone: [facility] 09-17-2022 10:49-0400 Diastolic blood pressure 59 mm[Hg] Mario Masci DO Work Phone: [facility] 09-17-2022 10:49-0400 Heart rate 81 /min Mario Masci DO Work Phone: [facility] 09-17-2022 10:49-0400 SaO2% (BldA) [Mass fraction] 95 % Mario Masci DO Work Phone: [facility] 09-17-2022 10:49-0400 Systolic blood pressure 107 mm[Hg] Mario Masci DO Work Phone: [facility] 09-17-2022 10:35-0400 Body weight 64.64 kg Lab/Port Wstr Work Phone: [facility] 08-19-2022 13:57-0500 Body height 160 cm DOROTHY Taylor PA-C Work Phone: [facility] 08-19-2022 13:57-0500 Body weight 63.5 kg NA Taylor PA-C Work Phone: [facility] 08-19-2022 13:57-0500 Diastolic blood pressure 68 mm[Hg] NA Taylor PA-C Work Phone: [facility] 08-19-2022 13:57-0500 Heart rate 80 /min NA Taylor PA-C Work Phone: [facility] 08-19-2022 13:57-0500 Respiratory rate 16 /min NA Taylor PA-C Work Phone: [facility] 08-19-2022 13:57-0500 Systolic blood pressure 110 mm[Hg] NA Taylor PA-C Work Phone: [facility] 08-19-2022 10:30-0500 Body height 160 cm Cleo Paul MD Work Phone: [facility] 08-19-2022 10:30-0500 Body temperature 97.5 [degF] Cleo Paul MD Work Phone: [facility] 08-19-2022 10:30-0500 Body weight 63.05 kg Cleo Paul MD Work Phone: [facility] 08-19-2022 10:30-0500 Diastolic blood pressure 62 mm[Hg] Cleo Paul MD Work Phone: [facility] 08-19-2022 10:30-0500 Heart rate 95 /min Cleo Paul MD Work Phone: [facility] 08-19-2022 10:30-0500 SaO2% (BldA) [Mass fraction] 97 % Cleo Paul MD Work Phone: [facility] 08-19-2022 10:30-0500 Systolic blood pressure 106 mm[Hg] Cleo Paul MD Work Phone: [facility] 07-24-2022 13:17-0500 Body temperature 97.9 [degF] Treatment Wstr Work Phone: [facility] 07-24-2022 13:17-0500 Diastolic blood pressure 52 mm[Hg] Treatment Wstr Work Phone: [facility] 07-24-2022 13:17-0500 Heart rate 76 /min Treatment Wstr Work Phone: [facility] 07-24-2022 13:17-0500 Respiratory rate 16 /min Treatment Wstr Work Phone: [facility] 07-24-2022 13:17-0500 SaO2% (BldA) [Mass fraction] 99 % Treatment Wstr Work Phone: [facility] 07-24-2022 13:17-0500 Systolic blood pressure 117 mm[Hg] Treatment Wstr Work Phone: [facility] 07-22-2022 13:06-0500 Body weight 63.5 kg NA Taylor PA-C Work Phone: [facility] 07-22-2022 13:06-0500 Diastolic blood pressure 64 mm[Hg] NA Taylor PA-C Work Phone: [facility] 07-22-2022 13:06-0500 Heart rate 100 /min NA Taylor PA-C Work Phone: [facility] 07-22-2022 13:06-0500 Respiratory rate 18 /min NA Taylor PA-C Work Phone: [facility] 07-22-2022 13:06-0500 SaO2% (BldA) [Mass fraction] 98 % NA Taylor PA-C Work Phone: [facility] 07-22-2022 13:06-0500 Systolic blood pressure 122 mm[Hg] NA Taylor PA-C Work Phone: [facility] 06-26-2022 14:07-0500 Body temperature 97.81 [degF] Treatment Wstr Work Phone: [facility] 06-26-2022 14:07-0500 Diastolic blood pressure 63 mm[Hg] Treatment Wstr Work Phone: [facility] 06-26-2022 14:07-0500 Heart rate 76 /min Treatment Wstr Work Phone: [facility] 06-26-2022 14:07-0500 Respiratory rate 22 /min Treatment Wstr Work Phone: [facility] 06-26-2022 14:07-0500 Systolic blood pressure 144 mm[Hg] Treatment Wstr Work Phone: [facility] 06-17-2022 13:04-0500 Body weight 64.86 kg NA Talyor PA-C Work Phone: [facility] 06-17-2022 13:04-0500 Diastolic blood pressure 62 mm[Hg] NA Taylor PA-C Work Phone: [facility] 06-17-2022 13:04-0500 Heart rate 112 /min NA Taylor PA-C Work Phone: [facility] 06-17-2022 13:04-0500 Respiratory rate 16 /min NA Taylor PA-C Work Phone: [facility] 06-17-2022 13:04-0500 SaO2% (BldA) [Mass fraction] 97 % NA Taylor PA-C Work Phone: [facility] 06-17-2022 13:04-0500 Systolic blood pressure 130 mm[Hg] NA Taylor PA-C Work Phone: [facility] 05-28-2022 09:13-0500 Body weight 65.32 kg Mario Cardona DO Work Phone: [facility] 05-28-2022 09:04-0500 Body weight 65.55 kg Lab/Port Wstr Work Phone: [facility] 04-07-2022 14:36-0400 Body height 160 cm Elaine Arteaga MD Work Phone: [facility] 04-07-2022 14:36-0400 Body weight 66.13 kg Elaine Arteaga MD Work Phone: [facility] 04-07-2022 14:36-0400 Diastolic blood pressure 68 mm[Hg] Elaine Arteaga MD Work Phone: [facility] 04-07-2022 14:36-0400 Heart rate 72 /min Elaine Arteaga MD Work Phone: [facility] 04-07-2022 14:36-0400 Respiratory rate 16 /min Elaine Arteaga MD Work Phone: [facility] 04-07-2022 14:36-0400 Systolic blood pressure 116 mm[Hg] Elaine Arteaga MD Work Phone: [facility] 04-03-2022 09:47-0400 Body temperature 98.01 [degF] Treatment Wstr Work Phone: [facility] 04-03-2022 09:47-0400 Diastolic blood pressure 62 mm[Hg] Treatment Wstr Work Phone: [facility] 04-03-2022 09:47-0400 Heart rate 89 /min Treatment Wstr Work Phone: [facility] 04-03-2022 09:47-0400 Systolic blood pressure 123 mm[Hg] Treatment Wstr Work Phone: [facility] 01-07-2022 13:36-0400 Body temperature 97.59 [degF] Treatment Wstr Work Phone: [facility] 01-07-2022 13:36-0400 Body weight 70.08 kg Treatment Wstr Work Phone: [facility] 01-07-2022 13:36-0400 Diastolic blood pressure 58 mm[Hg] Treatment Wstr Work Phone: [facility] 01-07-2022 13:36-0400 Heart rate 73 /min Treatment Wstr Work Phone: [facility] 01-07-2022 13:36-0400 Respiratory rate 16 /min Treatment Wstr Work Phone: [facility] 01-07-2022 13:36-0400 SaO2% (BldA) [Mass fraction] 98 % Treatment Wstr Work Phone: [facility] 01-07-2022 13:36-0400 Systolic blood pressure 136 mm[Hg] Treatment Wstr Work Phone: [facility] 12-10-2021 14:22-0400 Body temperature 97.59 [degF] Treatment Wstr Work Phone: [facility] 12-10-2021 14:22-0400 Body weight 69.17 kg Treatment Wstr Work Phone: [facility] 12-10-2021 14:22-0400 Diastolic blood pressure 60 mm[Hg] Treatment Wstr Work Phone: [facility] 12-10-2021 14:22-0400 Heart rate 76 /min Treatment Wstr Work Phone: [facility] 12-10-2021 14:22-0400 Systolic blood pressure 124 mm[Hg] Treatment Wstr Work Phone: [facility] 11-12-2021 15:35-0400 Body temperature 97.9 [degF] Treatment Wstr Work Phone: [facility] 11-12-2021 15:35-0400 Diastolic blood pressure 50 mm[Hg] Treatment Wstr Work Phone: [facility] 11-12-2021 15:35-0400 Heart rate 84 /min Treatment Wstr Work Phone: [facility] 11-12-2021 15:35-0400 SaO2% (BldA) [Mass fraction] 100 % Treatment Wstr Work Phone: [facility] 11-12-2021 15:35-0400 Systolic blood pressure 128 mm[Hg] Treatment Wstr Work Phone: [facility] 10-15-2021 14:27-0400 Body temperature 97.81 [degF] Treatment Wstr Work Phone: [facility] 10-15-2021 14:27-0400 Body weight 65.32 kg Treatment Wstr Work Phone: [facility] 10-15-2021 14:27-0400 Diastolic blood pressure 52 mm[Hg] Treatment Wstr Work Phone: [facility] 10-15-2021 14:27-0400 Heart rate 87 /min Treatment Wstr Work Phone: [facility] 10-15-2021 14:27-0400 Systolic blood pressure 116 mm[Hg] Treatment Wstr Work Phone: [facility] 09-17-2021 08:56-0400 Body temperature 98.4 [degF] Maribel Heller [employer] Work Phone: [facility] 09-17-2021 08:56-0400 Body weight 70.76 kg Maribel Heller [employer] Work Phone: [facility] 09-17-2021 08:56-0400 Diastolic blood pressure 56 mm[Hg] [place] Heller [employer] Work Phone: [facility] 09-17-2021 08:56-0400 Heart rate 69 /min Maribel Heller [employer] Work Phone: [facility] 09-17-2021 08:56-0400 SaO2% (BldA) [Mass fraction] 97 % Maribel Heller [employer] Work Phone: [facility] [facility]21 08:56-0400 Systolic blood pressure 123 mm[Hg] [place] [employer] [employer] Work Phone: [facility] Encounters Encounter Date Encounter Type Care Provider Facility Start: 07-09-2023 End: 07-09-2023 ambulatory ARTIE BONDS Facility:[facility] Start: 06-29-2023 End: 06-29-2023 ambulatory MARIO CARDONA Facility:[facility] Start: 06-02-2023 End: 06-02-2023 ambulatory MARIO CARDONA Facility:[facility] Start: 06-02-2023 End: 06-02-2023 ambulatory [facility] [facility] Work Phone: Hematology/Oncology Procedures Date Procedure Procedure Detail Performing Clinician Start: 06-02-2023 Blood count complete auto&auto difrntl wbc Mario A Masci DO Work Phone: Start: 05-25-[address] atten uation skull base mid-thigh Mario Calderoni DO Work Phone: Start: 04-10-2023 INFLUENZA VACCINE, P RSV FREE, AGE 65+ YR, HIGH DOSE, QUADRIVALENT (FLUZONE HIGH-DOSE) Elaine Arteaga MD Work Phone: Start: 02-12-2023 Level iv surg pathol ogy gross&microscopic exam Artie Bonds MD Work Phone: Start: 02-12-2023 Colonoscopy flx dx w /collj spec when pfrmd Artie Bonds MD Work Phone: Start: 02-12-2023 Colonoscopy [place] Work Phone: Start: 12-16-2022 Follow-up visit Follow Up ARTIE BONDS Start: 12-15-2022 Blood count complete auto&auto difrntl wbc Mario Calderoni DO Work Phone: Start: 10-02-2022 MISMATCH REPAIR PROT EINS BY IHC Artie Bonds MD Work Phone: Start: 10-02-2022 Level iv surg pathol ogy gross&microscopic exam Artie Bonds MD Work Phone: Start: 10-02-2022 Colonoscopy flx dx w /collj spec when pfrmd Cleo Paul MD Work Phone: Start: 10-02-2022 Colonoscopy Artie forman MD Work Phone: Start: 09-17-2022 Blood count complete auto&auto difrntl wbc Mario Restrepo Masci DO Work Phone: Start: 08-12-[address] atten uation skull base mid-thigh Mario Calderoni DO Work Phone: Start: 07-21-2022 Ct abdomen & pelvis w/contrast material Mario Kaye Kvngoctavio DO Work Phone: Start: 07-21-2022 Ct thorax w/contrast material Mario Restrepo Masci DO Work Phone: Start: 07-21-2022 Blood count complete auto&auto difrntl wbc Mario Restrepo Masci DO Work Phone: Start: 07-14-2022 Mri brain brain stem w/o w/contrast material Dorcas Montenegro MD Work Phone: Start: 06-26-2022 Blood count complete auto&auto difrntl wbc Mario Restrepo Masci DO Work Phone: Start: 06-17-2022 End: 06-17-2022 Ecg routine ecg w/least 12 lds i&r only [facility] Provider Start: 05-28-2022 Blood count complete auto&auto difrntl wbc Mario Restrepo Masci DO Work Phone: Start: 03-27-2022 Blood count complete auto&auto difrntl wbc Mario A Masci DO Work Phone: Start: 01-07-2022 Blood count complete auto&auto difrntl wbc Mario Restrepo Masci DO Work Phone: Start: 12-10-2021 Blood count complete auto&auto difrntl wbc Mario Restrepo Masci DO Work Phone: Start: 10-15-2021 Blood count complete auto&auto difrntl wbc Mario Restrepo Masci DO Work Phone: Start: 09-15-2021 Adult depression scr eening rudy Heller [employer] Work Phone: Start: 07-12-2021 Mri brain brain stem w/o w/contrast material Sage Dimas MD Work Phone: Plan of Treatment Date Care Activity Detail Author Start: 06-02-2026 Diabetes Screening Diabetes Screenin [facility] Start: 12-15-2025 DIABETES SCREEN DIABETES SCREEN [facility] Start: 12-15-2025 Diabetes Screening Diabetes Screenin [facility] Start: 10-13-2025 DIABETES SCREEN DIABETES SCREEN [facility] Start: 09-17-2025 DIABETES SCREEN DIABETES SCREEN [facility] Start: 07-21-2025 DIABETES SCREEN DIABETES SCREEN [facility] Start: 06-26-2025 DIABETES SCREEN DIABETES SCREEN [facility] Start: 05-28-2025 DIABETES SCREEN DIABETES SCREEN [facility] Start: 04-29-2025 DIABETES SCREEN DIABETES SCREEN [facility] Start: 03-27-2025 DIABETES SCREEN DIABETES SCREEN [facility] Start: 02-04-2025 DIABETES SCREEN DIABETES SCREEN [facility] Start: 01-07-2025 DIABETES SCREEN DIABETES SCREEN [facility] Start: 12-10-2024 DIABETES SCREEN DIABETES SCREEN [facility] Start: 11-11-2024 DIABETES SCREEN DIABETES SCREEN [facility] Start: 10-15-2024 DIABETES SCREEN DIABETES SCREEN [facility] Start: 09-17-2024 DIABETES SCREEN DIABETES SCREEN [facility] Start: 02-13-2024 Colonoscopy Colonoscopy [facility] Start: 02-13-2024 Colorectal Cancer Screening Colorectal Cancer Screening [facility] Start: 02-13-2024 Screening for malign ant neoplasm of colon [facility] Start: 10-03-2023 Colonoscopy COLONOSCOPY [facility] Start: 10-03-2023 COLORECTAL CANCER SCREENING COLORECTAL CANCER SCREENING [facility] Start: 06-02-2023 End: 09-01-2023 Ferritin [Mass/volume] in Serum or Plasma FERRITIN BLD Lab Routine 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) Iron deficiency anemia due to chronic blood loss Expected: 06/02/2023, Expires: 09/01/2023 [facility] Work Phone: Immunizations Immunization Date Immunization Notes Care Provider Ankur [facility] 04-10-2023 influenza (HD-IIV4) vaccine, age 65+ yr, high dose, quadrivalent, PF (FLUZONE HIGH-DOSE) Elaine Arteaga MD Work Phone: [facility] 04-10-2023 influenza virus vacc ine, unspecified formulation Elaine Arteaga MD Work Phone: [facility] 03-19-2022 influenza virus vacc ine, unspecified formulation [facility] Work Phone: [facility] 03-11-2022 influenza, high dose seasonal, preservative-free Mario Cardona DO Work Phone: [facility] 05-29-2021 COVID-19 vaccine, ag e 12+ yr ([employer] - PURPLE TOP) [place] [employer] Work Phone: [facility] 03-21-2021 influenza, high-dose , quadrivalent vaccine (FLUZONE HIGH DOSE QUADRIVALENT) Maribel Poloenter [employer] Work Phone: [facility] 03-02-2018 influenza, high dose seasonal, preservative-free [place] [employer] Work Phone: [facility] 03-27-2017 influenza, high dose seasonal, preservative-free [place] [employer] Work Phone: [facility] 04-09-2016 influenza, seasonal, injectable [place] [employer] Work Phone: [facility] Work Phone: 05-14-2015 influenza, seasonal, injectable [place] [employer] Work Phone: [facility] Work Phone: 05-14-2015 pneumococcal conjuga te vaccine, 13 valent Maribel Heller [employer] Work Phone: [facility] Work Phone: 11-08-2013 pneumococcal polysaccharide vaccine, 23 valent [place] [employer] Work Phone: [facility] Payers Date Payer Category Payer Medicare HU[employer]NA MEDICARE HU[employer]NA MEDICARE PPO [id number] 2021-Present [id number] [place] [id number] PPO [id number] 2017 Medicare [id number] 2017 Medicare [id number] Social History Date Type Detail Facility Start: 11-01-2013 End: 03-21-2022 Tobacco smoking status NHIS Ex-smoker [facility] Work Phone: Start: [birth year]-01-1964 End: 10-24-2013 History of tobacco use Current smoker [facility] Work Phone: Start: 11-01-1964 End: 10-24-2013 History of tobacco use Cigarette Smoker [facility] Work Phone: Start: 11-01-2013 End: 12-09-2022 Cigarettes smoked current (pack per day) - Reported 1 [facility] Start: 11-01-2013 End: 03-21-2022 Tobacco use and exposure Smokeless tobacco non-user [facility] Work Phone: Start: 09-17-2021 End: 06-02-2023 Alcohol intake Current drinker of alcohol (finding) [facility] Start: 05-02-2020 End: 07-15-2022 History SDOH Alcohol Frequency 2 [facility] Start: 05-02-2020 End: 03-31-2022 History SDOH Alcohol Std Drinks 1 [facility] Start: 12-26-2014 History SDOH Alcohol Comment Occasionally [facility] Start: 03-29-2014 End: 03-21-2022 Tobacco Comment Pt smoked one pack a week on & off for 48 years, had quit four times in the past. [facility] Start: 1945 Sex Assigned At Not on file [facility] Start: 09-07-2021 End: 04-07-2022 Exposure to SARS-CoV-2 (event) Not sure [facility] Start: 06-08-2021 End: 07-08-2021 Exposure to SARS-CoV-2 (event) Unable to assess [facility] Start: 03-31-2022 End: 07-15-2022 History SDOH Alcohol Frequency 3 [facility] Start: 03-31-2022 End: 07-15-2022 History SDOH Social Connections Phone 5 [facility] Start: 03-31-2022 History SDOH Physical Activity DPW 0 [facility] Start: 07-15-2022 History SDOH Social Connections Get Together 98 [facility] Start: 07-15-2022 End: 12-09-2022 Social connection and isolation panel [facility] How often do you get together with friends or relatives? Patient refused [facility] Do you belong to any clubs or organizations such as mormon groups, unions, fraternal or athletic groups, or school groups? Yes [facility] Are you now , , , , never or living with a partner? [facility] How often to you hav e a drink containing alcohol? 2-4 times a month [facility] How many standard dr inks containing alcohol do you have on a typical day? 1 or 2 [facility] How often do you hav e 6 or more drinks on 1 occasion? Never [facility] (I/We) worried gayla er (my/our) food would run out before (I/we) got money to buy more. DK or Refused [facility] Medical Equipment Procedure Code Equipment Code Equipment Origin al Text Equipment Identifier Dates Plate Lw Prof 2h ole 12mm Bar - [id number] Start: 11-09-2013 Plate Cvr Bur Ho le Lp 10mm - [id number] Start: 11-09-2013 Plate Cvr Bur Ho le Lp 14mm - [id number] Start: 11-09-2013 Port [place] M ri 8fr Plastic Polyurethane Implantable Infusion - [id number] Start: 08-12-2016 Pin Crss Sd Scr 1.5x4mm - [id number] Start: 11-09-2013 Clinical Notes 11-30-2013 to 06-02-2023 Chata Borges RN - 06/02/2023 8:06 AM ESTTelephone Encounter - Netta Nguyen - 05/26/2023 12:24 PM ESTTelephone Encounter - Netta Nguyen - 05/26/2023 11:33 AM ESTPatient Instructions Note Date & Type Note Facility 06-02-2023 History of Present illness Narrative Patient is here for IVAD port flush/blood draw per [facility] protocol. IVAD is located in right upper chest. Site cleansed with Chloraprep IVAD accessed with a #20 gauge 3/4 non-coring Gripper needle Flush with 5cc's Normal Saline. Blood Return: Good. 10 cc's blood aspirated and discarded. Blood drawn for CBC and CMP. Flushed with: 20 ml Normal Saline and 5 ml Heparin Lock Flush. Non-coring needle removed. Paper tape applied to puncture site. Site negative for redness, edema or tenderness. Patient tolerated procedure well. documented in this encounter [facility] 05-26-2023 Miscellaneous Notes Spoke with patient and scheduled with Dr. Bonds as verbally directed. Netta Nguyen Spoke with patient and scheduled MRI. Please file Referral for [place] if necessary. Netta Nguyen Pt. Notified PET scan shows no evidence of recurrent lung cancer. There is still some inflammation in the anal area although less than previously. Dr. Bonds examined her in February and did not find any abnormality. Dr. Cardona suggest one more follow-up with him for this. Please place referral order. Also overdue for MRI brain. Schedule when able. Okay if not done prior to OV next week. Pt. Voiced understanding, agrees to have another F/U with Dr. Bonds. Left message on voicemail to contact office concerning PET results. Amy Worrell LPN Can let her know the PET scan shows no evidence of recurrent lung cancer. There is still some inflammation in the anal area although less than previously. Dr. Bonds examined her in February and did not find any abnormality. I suggest one more follow-up with him for this. Please place referral order. Also overdue for MRI brain. Schedule when able. Okay if not done prior to OV next week. Mario Cardona DO documented in this encounter [facility] 05-25-2023 Note HNO ID: [id number] Author: Avila Burch RT(R) Service: Nuclear Medicine Author Type: Technologist Type: Progress Notes Filed: 05/25/2023 10:02 AM Note Text: RADIOLOGY SERVICE PROGRESS NOTE SERVICE DATE: 05/25/2023 SERVICE TIME: 10:02 AM PATIENT IDENTITY VERIFICATION COMPLETED USING TWO (2) STANDARD IDENTIFIERS: Name and Date of confirmed by patient verbally FALL SCREENING: Has the patient had 2 falls in the last year or 1 fall with injury or currently using an Ambulatory Assistive Device (Walker, Cane, Wheelchair, Crutches, etc.)? No PATIENT GENDER DATA: .female ALLERGIES: NA MEDICATIONS REVIEWED: Not applicable PATIENT RELEVANT IMPLANT DATA REVIEWED: Not Applicable CREATININE: Creatinine Date Value Ref Range Status 12/15/2022 0.93 0.58 - 0.96 mg/dL Final 09/17/2022 0.79 0.58 - 0.96 mg/dL Final 07/21/2022 0.78 0.58 - 0.96 mg/dL Final Estimated Glomerular Filtration Rate Date Value Ref Range Status 12/15/2022 63 >=60 mL/min/1.73m? Final Comment: Estimated Glomerular Filtration Rate (eGFR) is calculated using the 2020 CKD-EPI creatinine equation. This equation utilizes serum creatinine, sex, and age as parameters. The creatinine assay has traceable calibration to isotope dilution-mass spectrometry. Refer to KDIGO guidelines for clinical interpretation. In patients with unstable renal function, e.g. those with acute kidney injury, the eGFR may not accurately reflect actual GFR. eGFR- Date Value Ref Range Status 07/23/2021 >60 Final P.O.C.T. RESULTS: N/A May 25, [address] PERFORMED: No IV SITE: Ambulatory: NM only - direct IV injection in the Right antecubital site POST EXAM PIV STATUS: Discontinued PROCEDURE TYPE: NM INJECT: PET/CT BODY SCAN. 10.1 mCi F18 FDG. No other medications given.. ADMINISTRATION TIME: 0955 PATIENT DISCHARGED TO: Ambulatory patient, left RI department area. A Diagnostic radioactive procedure has taken place, with no further precautions necessary other than routine body substance precautions. More information regarding radiation safety can be found using this link: [email or web address] ction [email or web address]%20Nuclear%20Medic [email or web address] SIGNATURE: RT Alfred(R) PATIENT NAME: Jenise Bullock DATE: May 25, 2023 TIME: 10:02 AM PAGER/CONTACT #: [facility] 05-25-2023 History of Present illness Narrative RADIOLOGY SERVICE PROGRESS NOTE SERVICE DATE: 05/25/2023 SERVICE TIME: 10:02 AM PATIENT IDENTITY VERIFICATION COMPLETED USING TWO (2) STANDARD IDENTIFIERS: Name and Date of confirmed by patient verbally FALL SCREENING: Has the patient had 2 falls in the last year or 1 fall with injury or currently using an Ambulatory Assistive Device (Walker, Cane, Wheelchair, Crutches, etc.)? No PATIENT GENDER DATA: .female ALLERGIES: NA MEDICATIONS REVIEWED: Not applicable PATIENT RELEVANT IMPLANT DATA REVIEWED: Not Applicable CREATININE: Creatinine Date Value Ref Range Status 12/15/2022 0.93 0.58 - 0.96 mg/dL Final 09/17/2022 0.79 0.58 - 0.96 mg/dL Final 07/21/2022 0.78 0.58 - 0.96 mg/dL Final Estimated Glomerular Filtration Rate Date Value Ref Range Status 12/15/2022 63 >=60 mL/min/1.73m Final Comment: Estimated Glomerular Filtration Rate (eGFR) is calculated using the 2020 CKD-EPI creatinine equation. This equation utilizes serum creatinine, sex, and age as parameters. The creatinine assay has traceable calibration to isotope dilution-mass spectrometry. Refer to KDIGO guidelines for clinical interpretation. In patients with unstable renal function, e.g. those with acute kidney injury, the eGFR may not accurately reflect actual GFR. eGFR- Date Value Ref Range Status 07/23/2021 >60 Final P.O.C.T. RESULTS: N/A May 25, [address] PERFORMED: No IV SITE: Ambulatory: NM only - direct IV injection in the Right antecubital site POST EXAM PIV STATUS: Discontinued PROCEDURE TYPE: NM INJECT: PET/CT BODY SCAN. 10.1 mCi F18 FDG. No other medications given.. ADMINISTRATION TIME: 954 PATIENT DISCHARGED TO: Ambulatory patient, left [place] department area. A Diagnostic radioactive procedure has taken place, with no further precautions necessary other than routine body substance precautions. More information regarding radiation safety can be found using this link: [email or web address] [email or web address]%20Nuclear%20 Medicine%20Procedures.[email or web address] SIGNATURE: RT Alfred(R) PATIENT NAME: Jenise Bullock DATE: May 25, 2023 TIME: 10:02 AM PAGER/CONTACT #: documented in this encounter [facility] 04-10-2023 Note HNO ID: [id number] Author: Joan Mccracken Ma Service: ? Author Type: ? Type: Progress Notes Filed: 04/10/2023 4:24 PM Note Text: Pt here today with her spouse and is requesting a flu shot. Would like to discuss other vaccines. States she discussed this with another Provider. Was advised she should get an updated Pneumonia vaccine due to being over 10 years ago. Does not want to receive Covid and Flu together, did this last year and made her very ill. Asks about RSV vaccine. Pt tolerated vaccine well. Joan Mccracken Ma [facility] 04-10-2023 History of Present illness Narrative Pt here today with her spouse and is requesting a flu shot. Would like to discuss other vaccines. States she discussed this with another Provider. Was advised she should get an updated Pneumonia vaccine due to being over 10 years ago. Does not want to receive Covid and Flu together, did this last year and made her very ill. Asks about RSV vaccine. Pt tolerated vaccine well. Joan Mccracken Ma documented in this encounter [facility] 02-25-2023 Note HNO ID: [id number] Author: Artie Bonds MD Service: ? Author Type: Physician Type: Progress Notes Filed: 02/25/2023 10:22 AM Note Text: Subjective: Patient is status post a colonoscopy repeat. The area where she had the polyp that had the adenocarcinoma at the tip looks completely normal. I did find several other smaller polyps in her colon. These all came back as tubular adenomas or hyperplastic in nature. Biopsied her rectum took photographs everything in here looks entirely normal. Objective:Blood pressure 116/72, pulse 85, temperature 36.7 ?C (98 ?F), SpO2 97 %. Abdomen is soft nontender Assessment:Abnormal pet scan of colon (primary encounter diagnosis) Malignant neoplasm of sigmoid colon (hcc) Plan: At this point she will need to have another colonoscopy between 1 and 3 years. With regards to her rectum I really do not know why that it is lighting up on the PET scan everything looks normal here. And she has an entirely normal rectal exam. [facility] 02-12-2023 History and physical note Images from the original note were not included. HISTORY AND PHYSICAL Jenise Bullock 1945 REFERRING PHYSICIAN: No ref. provider found CHIEF COMPLAINT: Follow Up (1 month follow up ) HPI: The patient is a 77 year old female referred for endoscopy. Patient is status post a colonoscopy completed at the ambulatory surgery center in [place] on 10/02/2022 3 polyps were removed and the descending colon x2 in the sigmoid colon x1. The second polyp of the descending colon was large and it came back as a tubulovillous adenoma she had an inflammatory polyp in the proximal part of the descending colon. 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 It was negative for lymphovascular or perineural invasion. Tumor budding score was low. Deep and mucosal margins were negative for carcinoma or adenoma. Her most recent PET scan shows that the area in the rectum is still lighting up. Having discussed her case with my colleagues I think the best thing to do here is to repeat the colonoscopy now and try to get some deep biopsies within the rectum as well as evaluate what the biopsy site look like in the sigmoid colon. Of note the patient stated that the last time when I did her rectal exam she did have some bleeding after that. Although I felt no masses in her rectal area or anal area at the time. 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) Snoring PAST SURGICAL HISTORY PAST SURGICAL HISTORY Procedure Laterality Date BRAIN SURGERY HX BRONCHOSCOPY 11/04/2013 COLONOSCOPY FLX DX W/COLLJ SPEC WHEN PFRMD 11/24/2018 Colonoscopy COLONSCOPY SCREENING HIGH RISK 10/02/2022 repeat in 6 months ESOPHAGOGASTRODUODENOSCOPY TRANSORAL DIAGNOSTIC 11/24/2018 EGD EXPLORE CRANIOTOMY 11/09/2013 right sided resection of brain tumor INSJ TUNNELED CTR VAD W/SUBQ PORT AGE 5 YR/> Right 08/13/2016 subclavian IR TUNNELED PORT INSERTION PAST SURGICAL HISTORY OF 1993 right axillary cyst removed PAST SURGICAL HISTORY OF 1962 lymph node removed from back of neck while in high school SALPINGO-OOPHORECTOMY COMPL/PRTL UNI/BI SPX 1982 TONSILLECTOMY HX CURRENT MEDICATIONS Current Outpatient Medications Medication Sig BIOTIN 5,000 MCG GUMMY Take 2 tablets by mouth once daily. metoprolol tartrate, short acting, (LOPRESSOR) 25 mg tablet Take 0.5 tablets by mouth twice daily. And an extra 1/2 tab if palpitations are worse ferrous sulfate 325 mg (65 mg iron) EC tablet Take 65 mg by mouth every other day. multivitamin tablet Take 1 tablet by mouth once daily. acetaminophen (TYLENOL) 500 mg tablet Take 1,000 mg by mouth every 8 hours as needed. diphenhydrAMINE (BENADRYL) 25 mg tablet Take 25 mg by mouth every 8 hours as needed. Omeprazole Magnesium (PRILOSEC OTC) 20 mg tablet Take 2 tablets by mouth once daily. (Patient taking differently: Take 20 mg by mouth once daily.) ibuprofen (MOTRIN) 200 mg tablet Take 200 mg by mouth every 6 hours as needed. peg 3350-Electrolytes (GOLYTELY) 236-22.74-6.74 -5.86 gram suspension Take 4,000 mL by mouth one time only for 1 dose. Refer to printed prep instructions from your provider. LORazepam (ATIVAN) 1 mg tablet Take 1 tablet by mouth every 8 hours as needed for up to 14 days. No current facility-administered medications for this visit. ALLERGIES: Penicillins PERSONAL HISTORY: SOCIAL HISTORY Social History Tobacco Use Smoking status: Former Packs/day: 1.00 Years: 48.00 Total pack years: 48.00 Types: Cigarettes Start date: 11/01/1964 Quit date: 10/24/2013 Years since quittin.2 Smokeless tobacco: Never Tobacco comments: Pt smoked one pack a week on & off for 48 years, had quit four times in the past. Vaping Use Vaping Use: Never used Substance Use Topics Alcohol use: Yes Alcohol/week: 2.5 standard drinks of alcohol Types: 1 Glasses of Wine (5oz) per week Comment: Occasionally Drug use: No FAMILY HISTORY: FAMILY HISTORY FAMILY HISTORY Problem Relation Age of Onset Cancer Mother unk other (parkinson's disease) Father other (myasthenia gravis) Maternal Grandmother Cancer Maternal Grandfather throat Diabetes Paternal Grandmother Cancer Paternal Grandfather colo-rectal Cancer Brother bladder Cancer Paternal Uncle leukemia Cancer Paternal Aunt lung REVIEW OF SYSTEMS: General: The patient denies fatigue, denies weight loss, denies weight gain, denies feeling hot, and denies feelings of cold. Eyes: The patient denies glaucoma, denies eye injury/surgery, wears glasses or contacts. Ear/Nose/Throat: The patient notes allergies, denies hayfever, denies ear infections, and denies bloody noses. Cardiovascular: The patient denies chest pain, denies heart disease, denies high blood pressure,denies cardiac stent, denies prior heart attack, denies irregular heart beat, denies high cholesterol, denies poor circulation, denies heart failure, other cardiac issues, denies claudication, denies cold feet, denies peripheral arterial stent. Respiratory: The patient denies tuberculosis, denies pneumonia, denies frequent cough, denies pulmonary embolism, denies shortness of breath, and denies coughing up blood. Gastrointestinal: The patient denies difficulty swallowing, notes acid reflux, denies ulcers, denies vomiting, denies jaundice/hepatitis, denies gallbladder problems, denies black or tarry stools, notes hemorrhoids, denies bleeding from rectum, denies diverticulitis, denies constipation, denies diarrhea, denies loss of stool control, and denies hernias. Kidney/Bladder: The patient notes kidney stones, notes urine infections, and denies bloody urine. Skin: The patient denies a history of skin cancer, denies bleeding/changing moles, and denies a history of skin rash. Neurologic: The patient denies a history of epilepsy/convulsions, denies headaches, denies head/spinal injuries, and denies stroke/TIA. Psychiatric: The patient denies psychiatric medications, denies depression, and denies voices, denies substance abuse. Endocrine: The patient denies thyroid disorders, denies diabetes, and denies hormonal problems. Hematologic: The patient denies a history of bruising, denies bleeding, and notes anemia, denies blood clots. Infections: The patient denies a history of measles and mumps, denies rheumatic fever, and denies sexually transmitted diseases. Musculoskeletal: The patient denies back pain/injury, denies back problems, denies sciatica, denies knee/foot trouble, notes arthritis, or denies gout. When was patient's last Mammogram screening? unknown PHYSICAL EXAMINATION: General: The patient is 77 year old female, well nourished, well hydrated in no acute distress. The patient is oriented to time, place, and person. VITALS: Blood pressure 116/72, pulse 94, temperature 36.5 C (97.7 F), height 160 cm (5' 3 ), weight 64 kg (141 lb 3.2 oz), SpO2 98 %. Body mass index is 25.01 kg/m . HEENT: Normal cephalic, ataumatic, pupils are equally round, sclera are anicteric, mucous membranes are moist, oropharynx is clear. Neck has no masses, asymmetry or lymphadenopathy. Thyroid is unremarkable. Respiratory: Clear to auscultation and percussion. Normal respiratory excursion and pattern. Cardiac: Examination is regular rate and rhythm. Abdominal exam: Soft, nontender, with no palpable masses. No hepatosplenomegaly. No palpable hernias. Rectal exam: exam deferred Extremities: no clubbing, cyanosis or edema. No adenopathy. Other: LABORATORY VALUES: As Noted RADIOLOGIC STUDIES: As Noted Assessment IMPRESSION: PLAN: I plan to perform lower endoscopy. We discussed the risks and benefits of the planned endoscopy. I have informed the patient that complications can occur including failure to complete the endoscopy and perforation. The patient had the opportunity to ask questions concerning the planned endoscopy. My staff has also explained the procedure to the patient in understandable terms and has given the patient printed material concerning the procedure. The patient freely consents to surgery. I plan to use golytely bowel preparation for endoscopy Diagnoses: (R94.8) Abnormal PET scan of colon (primary encounter diagnosis) (C18.7) Malignant neoplasm of sigmoid colon (HCC) My findings have been communicated to Elaine Hudson MD via shared medical record. This note will be forwarded to Elaine Hudson MD. Return to Clinic: The patient is instructed to follow-up with me 1 week post operatively. Artie Bonds III, MD UPDATED HISTORY AND PHYSICAL EXAMINATION SERVICE DATE: 02/12/2023 SERVICE TIME: 12:30 PM PHYSICAL EXAM MUST BE COMPLETED ON ADMISSION The History and Physical (completed in the past 30 days) has been reviewed and the patient has been examined. The contents accurately reflect the patient's condition with the following additions or revisions since the H&P was completed. Examination indicates no changes. This H&P can be found in the attached. SIGNATURE: Artie Bonds III, MD PATIENT NAME: Jenise Bullock DATE: February 12, 2023 TIME: 12:30 PM documented in this encounter [facility] 02-12-2023 Nurse Note Patient received in phase II via cart left lateral position, eyes closed but open to verbal stimuli, skin is warm and dry, respirations regular and unlabored, abdomen soft and non distended, denies pain or nausea. Resting comfortably on left side. documented in this encounter [facility] 01-20-2023 Note HNO ID: [id number] Author: Artie Bonds MD Service: ? Author Type: Physician Type: Progress Notes Filed: 01/20/2023 2:19 PM Note Text: HISTORY AND PHYSICAL Jenise Bullock 1945 REFERRING PHYSICIAN: No ref. provider found CHIEF COMPLAINT: Follow Up (1 month follow up ) HPI: The patient is a 77 year old female referred for endoscopy. Patient is status post a colonoscopy completed at the ambulatory surgery center in [place] on 10/02/2022 3 polyps were removed and the descending colon x2 in the sigmoid colon x1. The second polyp of the descending colon was large and it came back as a tubulovillous adenoma she had an inflammatory polyp in the proximal part of the descending colon. 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 It was negative for lymphovascular or perineural invasion. Tumor budding score was low. Deep and mucosal margins were negative for carcinoma or adenoma. Her most recent PET scan shows that the area in the rectum is still lighting up. Having discussed her case with my colleagues I think the best thing to do here is to repeat the colonoscopy now and try to get some deep biopsies within the rectum as well as evaluate what the biopsy site look like in the sigmoid colon. Of note the patient stated that the last time when I did her rectal exam she did have some bleeding after that. Although I felt no masses in her rectal area or anal area at the time. 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) Snoring PAST SURGICAL HISTORY Procedure Laterality Date BRAIN SURGERY HX BRONCHOSCOPY 11/04/2013 COLONOSCOPY FLX DX W/COLLJ SPEC WHEN PFRMD 11/24/2018 Colonoscopy COLONSCOPY SCREENING HIGH RISK 10/02/2022 repeat in 6 months ESOPHAGOGASTRODUODENOSCOPY TRANSORAL DIAGNOSTIC 11/24/2018 EGD EXPLORE CRANIOTOMY 11/09/2013 right sided resection of brain tumor INSJ TUNNELED CTR VAD W/SUBQ PORT AGE 5 YR/> Right 08/13/2016 subclavian IR TUNNELED PORT INSERTION PAST SURGICAL HISTORY OF 1993 right axillary cyst removed PAST SURGICAL HISTORY OF 1962 lymph node removed from back of neck while in high school SALPINGO-OOPHORECTOMY COMPL/PRTL UNI/BI SPX 1983 TONSILLECTOMY HX Current Outpatient Medications Medication Sig BIOTIN 5,000 MCG GUMMY Take 2 tablets by mouth once daily. metoprolol tartrate, short acting, (LOPRESSOR) 25 mg tablet Take 0.5 tablets by mouth twice daily. And an extra 1/2 tab if palpitations are worse ferrous sulfate 325 mg (65 mg iron) EC tablet Take 65 mg by mouth every other day. multivitamin tablet Take 1 tablet by mouth once daily. acetaminophen (TYLENOL) 500 mg tablet Take 1,000 mg by mouth every 8 hours as needed. diphenhydrAMINE (BENADRYL) 25 mg tablet Take 25 mg by mouth every 8 hours as needed. Omeprazole Magnesium (PRILOSEC OTC) 20 mg tablet Take 2 tablets by mouth once daily. (Patient taking differently: Take 20 mg by mouth once daily.) ibuprofen (MOTRIN) 200 mg tablet Take 200 mg by mouth every 6 hours as needed. peg 3350-Electrolytes (GOLYTELY) 236-22.74-6.74 -5.86 gram suspension Take 4,000 mL by mouth one time only for 1 dose. Refer to printed prep instructions from your provider. LORazepam (ATIVAN) 1 mg tablet Take 1 tablet by mouth every 8 hours as needed for up to 14 days. No current facility-administered medications for this visit. ALLERGIES: Penicillins PERSONAL HISTORY: Social History Tobacco Use Smoking status: Former Packs/day: 1.00 Years: 48.00 Total pack years: 48.00 Types: Cigarettes Start date: 11/01/1964 Quit date: 10/24/2013 Years since quittin.2 Smokeless tobacco: Never Tobacco comments: Pt smoked one pack a week on AND off for 48 years, had quit four times in the past. Vaping Use Vaping Use: Never used Substance Use Topics Alcohol use: Yes Alcohol/week: 2.5 standard drinks of alcohol Types: 1 Glasses of Wine (5oz) per week Comment: Occasionally Drug use: No FAMILY HISTORY: FAMILY HISTORY Problem Relation Age of Onset Cancer Mother unk other (parkinson's disease) Father other (myasthenia gravis) Maternal Grandmother Cancer Maternal Grandfather throat Diabetes Paternal Grandmother Cancer Paternal Grandfather colo-rectal Cancer Brother bladder Cancer Paternal Uncle leukemia Cancer Paternal Aunt lung REVIEW OF SYSTEMS: General: The patient denies fatigue, denies weight loss, denies weight gain, denies feeling hot, and denies feelings of cold. Eyes: The pa (more content not included)... [facility] 01-20-2023 Instructions Artie Bonds MD - 01/20/2023 2:13 PM EDT Images from the original note were not included. Bowel Preparation Instructions for: Golytely, Nulytely, Trilyte or Colyte (polyethylene glycol 3350 and electrolytes) IF YOU DO NOT FOLLOW THESE DIRECTIONS, YOUR COLONOSCOPY WILL BE CANCELLED. Carias Instructions: Your bowel must be empty so that your doctor can clearly view your colon. Follow all of the instructions in this handout EXACTLY as they are written. Do NOT eat any solid food the ENTIRE day before your colonoscopy. Drink only clear liquids. Buy your bowel preparation at least 5 days before your colonoscopy. TRANSPORTATION on the Day of Your Exam A responsible person MUST be present with you at Check In prior to your colonoscopy and REMAIN in the endoscopy area until you are discharged. You are NOT ALLOWED to drive, take a taxi or bus, or leave the Endoscopy Center ALONE. If you do not have a responsible entry driver operator (family member or friend) with you to take you home, your exam cannot be done with sedation and will be cancelled. Please bring a list of all of your current medications, including any Over-the Counter medications with you. Medications If you take insulin, diabetic medications or blood thinners such as Coumadin (warfarin), Plavix (clopidogrel), Ticlid (ticlopidine hydrochloride), Agrylin (anagrelide), Xarelto (Rivaroxaban), Pradaxa (Dabigatran), Eliquis (Apixaban), and Effient (Prasugrel). You MUST call the doctors who orders those medicines for instructions on altering the dosage before your colonoscopy. All other medications should be taken the day of the exam with a sip of water including ASPIRIN. Five (5) Days Before Your Colonoscopy Do NOT take medicines that stop diarrhea - such as Imodium, Kaopectate, or Pepto Bismol. Do NOT take fiber supplements - such as Metamucil, Citrucel, or Perdiem. Do NOT take products that contain iron - such as multi-vitamins (the label lists what is in the products). Do NOT take Vitamin E. Buy the prescription bowel preparation solution at your local pharmacy or drugstore pharmacy. 1 05/2019 Bowel Preparation Instructions for: Golytely, Nulytely, Trilyte or Colyte (polyethylene glycol 3350 and electrolytes) Three (3) Days Before Your Colonoscopy Do NOT eat high-fiber foods - such as popcorn, beans, seeds (flax, sunflower, quinoa), multigrain bread, nuts, salad/vegetables, or fresh and dried fruit. One (1) Day Before Your Colonoscopy Only drink clear liquids the ENTIRE DAY before your colonoscopy. Do NOT eat any solid foods. Drink at least 8 ounces of clear liquids every hour after waking up. The clear liquids you can drink include: Clear Liquid (NO RED LIQUIDS) DO NOT DRINK Gatorade, Pedialyte or Powerade Clear broth or bouillon Coffee or tea (no milk or non-dairy creamer) Carbonated and non-carbonated soft drinks Mart-Aid or other fruit flavored drinks Strained fruit juices (no pulp) Jell-O, popsicles, hard candy Water Alcohol Milk or non-dairy creamers Noodles or vegetables in soup Juice with pulp Liquid you cannot see through Do not use tobacco/vaping products The bowel preparation solution will be consumed in two parts. Mix the solution the evening before your colonoscopy and refrigerate before drinking. You may add the flavor pack that came with the bowel preparation. Do NOT add ice, sugar or any other flavorings to the solution. Part 1 At 6:00 PM - Evening before your colonoscopy Drink an 8-oz glass of bowel preparation every 10 minutes for a total of 8 glasses. You may continue to drink clear liquids until midnight. Part 2 On the day of your colonoscopy you may drink clear liquids up to (three) 3 hours before your procedure. 4 1/2 hours before your colonoscopy Drink an 8-oz glass of bowel preparation every 10 minutes for a total of 8 glasses. Fifteen (15) minutes later, drink an 8-oz glass of clear liquids every 15 minutes for a total of 2 glasses. You may continue to drink clear liquids up to (three) 3 hours before your exam. 2 05/2019 documented in this encounter [facility] 01-20-2023 History of Present illness Narrative HISTORY AND PHYSICAL Jeinse Bullock 1945 REFERRING PHYSICIAN: No ref. provider found CHIEF COMPLAINT: Follow Up (1 month follow up ) HPI: The patient is a 77 year old female referred for endoscopy. Patient is status post a colonoscopy completed at the ambulatory surgery center in [place] on 10/02/2022 3 polyps were removed and the descending colon x2 in the sigmoid colon x1. The second polyp of the descending colon was large and it came back as a tubulovillous adenoma she had an inflammatory polyp in the proximal part of the descending colon. 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 It was negative for lymphovascular or perineural invasion. Tumor budding score was low. Deep and mucosal margins were negative for carcinoma or adenoma. Her most recent PET scan shows that the area in the rectum is still lighting up. Having discussed her case with my colleagues I think the best thing to do here is to repeat the colonoscopy now and try to get some deep biopsies within the rectum as well as evaluate what the biopsy site look like in the sigmoid colon. Of note the patient stated that the last time when I did her rectal exam she did have some bleeding after that. Although I felt no masses in her rectal area or anal area at the time. 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) Snoring PAST SURGICAL HISTORY Procedure Laterality Date BRAIN SURGERY HX BRONCHOSCOPY 11/04/2013 COLONOSCOPY FLX DX W/COLLJ SPEC WHEN PFRMD 11/24/2018 Colonoscopy COLONSCOPY SCREENING HIGH RISK 10/02/2022 repeat in 6 months ESOPHAGOGASTRODUODENOSCOPY TRANSORAL DIAGNOSTIC 11/24/2018 EGD EXPLORE CRANIOTOMY 11/09/2013 right sided resection of brain tumor INSJ TUNNELED CTR VAD W/SUBQ PORT AGE 5 YR/> Right 08/13/2016 subclavian IR TUNNELED PORT INSERTION PAST SURGICAL HISTORY OF 1993 right axillary cyst removed PAST SURGICAL HISTORY OF 1962 lymph node removed from back of neck while in high school SALPINGO-OOPHORECTOMY COMPL/PRTL UNI/BI SPX 1982 TONSILLECTOMY HX Current Outpatient Medications Medication Sig BIOTIN 5,000 MCG GUMMY Take 2 tablets by mouth once daily. metoprolol tartrate, short acting, (LOPRESSOR) 25 mg tablet Take 0.5 tablets by mouth twice daily. And an extra 1/2 tab if palpitations are worse ferrous sulfate 325 mg (65 mg iron) EC tablet Take 65 mg by mouth every other day. multivitamin tablet Take 1 tablet by mouth once daily. acetaminophen (TYLENOL) 500 mg tablet Take 1,000 mg by mouth every 8 hours as needed. diphenhydrAMINE (BENADRYL) 25 mg tablet Take 25 mg by mouth every 8 hours as needed. Omeprazole Magnesium (PRILOSEC OTC) 20 mg tablet Take 2 tablets by mouth once daily. (Patient taking differently: Take 20 mg by mouth once daily.) ibuprofen (MOTRIN) 200 mg tablet Take 200 mg by mouth every 6 hours as needed. peg 3350-Electrolytes (GOLYTELY) 236-22.74-6.74 -5.86 gram suspension Take 4,000 mL by mouth one time only for 1 dose. Refer to printed prep instructions from your provider. LORazepam (ATIVAN) 1 mg tablet Take 1 tablet by mouth every 8 hours as needed for up to 14 days. No current facility-administered medications for this visit. ALLERGIES: Penicillins PERSONAL HISTORY: Social History Tobacco Use Smoking status: Former Packs/day: 1.00 Years: 48.00 Total pack years: 48.00 Types: Cigarettes Start date: 11/01/1964 Quit date: 10/24/2013 Years since quittin.2 Smokeless tobacco: Never Tobacco comments: Pt smoked one pack a week on & off for 48 years, had quit four times in the past. Vaping Use Vaping Use: Never used Substance Use Topics Alcohol use: Yes Alcohol/week: 2.5 standard drinks of alcohol Types: 1 Glasses of Wine (5oz) per week Comment: Occasionally Drug use: No FAMILY HISTORY: FAMILY HISTORY Problem Relation Age of Onset Cancer Mother unk other (parkinson's disease) Father other (myasthenia gravis) Maternal Grandmother Cancer Maternal Grandfather throat Diabetes Paternal Grandmother Cancer Paternal Grandfather colo-rectal Cancer Brother bladder Cancer Paternal Uncle leukemia Cancer Paternal Aunt lung REVIEW OF SYSTEMS: General: The patient denies fatigue, denies weight loss, denies weight gain, denies feeling hot, and denies feelings of cold. Eyes: The patient denies glaucoma, denies eye injury/surgery, wears glasses or contacts. Ear/Nose/Throat: The patient notes allergies, denies hayfever, denies ear infections, and denies bloody noses. Cardiovascular: The patient denies chest pain, denies heart disease, denies high blood pressure,denies cardiac stent, denies prior heart attack, denies irregular heart beat, denies high cholesterol, denies poor circulation, denies heart failure, other cardiac issues, denies claudication, denies cold feet, denies peripheral arterial stent. Respiratory: The patient denies tuberculosis, denies pneumonia, denies frequent cough, denies pulmonary embolism, denies shortness of breath, and denies coughing up blood. Gastrointestinal: The patient denies difficulty swallowing, notes acid reflux, denies ulcers, denies vomiting, denies jaundice/hepatitis, denies gallbladder problems, denies black or tarry stools, notes hemorrhoids, denies bleeding from rectum, denies diverticulitis, denies constipation, denies diarrhea, denies loss of stool control, and denies hernias. Kidney/Bladder: The patient notes kidney stones, notes urine infections, and denies bloody urine. Skin: The patient denies a history of skin cancer, denies bleeding/changing moles, and denies a history of skin rash. Neurologic: The patient denies a history of epilepsy/convulsions, denies headaches, denies head/spinal injuries, and denies stroke/TIA. Psychiatric: The patient denies psychiatric medications, denies depression, and denies voices, denies substance abuse. Endocrine: The patient denies thyroid disorders, denies diabetes, and denies hormonal problems. Hematologic: The patient denies a history of bruising, denies bleeding, and notes anemia, denies blood clots. Infections: The patient denies a history of measles and mumps, denies rheumatic fever, and denies sexually transmitted diseases. Musculoskeletal: The patient denies back pain/injury, denies back problems, denies sciatica, denies knee/foot trouble, notes arthritis, or denies gout. When was patient's last Mammogram screening? unknown PHYSICAL EXAMINATION: General: The patient is 77 year old female, well nourished, well hydrated in no acute distress. The patient is oriented to time, place, and person. VITALS: Blood pressure 116/72, pulse 94, temperature 36.5 C (97.7 F), height 160 cm (5' 3 ), weight 64 kg (141 lb 3.2 oz), SpO2 98 %. Body mass index is 25.01 kg/m . HEENT: Normal cephalic, ataumatic, pupils are equally round, sclera are anicteric, mucous membranes are moist, oropharynx is clear. Neck has no masses, asymmetry or lymphadenopathy. Thyroid is unremarkable. Respiratory: Clear to auscultation and percussion. Normal respiratory excursion and pattern. Cardiac: Examination is regular rate and rhythm. Abdominal exam: Soft, nontender, with no palpable masses. No hepatosplenomegaly. No palpable hernias. Rectal exam: exam deferred Extremities: no clubbing, cyanosis or edema. No adenopathy. Other: LABORATORY VALUES: As Noted RADIOLOGIC STUDIES: As Noted Assessment IMPRESSION: PLAN: I plan to perform lower endoscopy. We discussed the risks and benefits of the planned endoscopy. I have informed the patient that complications can occur including failure to complete the endoscopy and perforation. The patient had the opportunity to ask questions concerning the planned endoscopy. My staff has also explained the procedure to the patient in understandable terms and has given the patient printed material concerning the procedure. The patient freely consents to surgery. I plan to use golytely bowel preparation for endoscopy Diagnoses: (R94.8) Abnormal PET scan of colon (primary encounter diagnosis) (C18.7) Malignant neoplasm of sigmoid colon (HCC) My findings have been communicated to Elaine Hudson MD via shared medical record. This note will be forwarded to Elaine Hudson MD. Return to Clinic: The patient is instructed to follow-up with me 1 week post operatively. Artie Bonds III, MD documented in this encounter [facility] 01-20-2023 Note HNO ID: [id number] Author: Artie Bonds MD Service: ? Author Type: Physician Type: Progress Notes Filed: 01/20/2023 10:31 AM Note Text: Subjective: Patient is status post a colonoscopy completed at the [facility] in [place] on 10/02/2022 3 polyps were removed and the descending colon x2 in the sigmoid colon x1. The second polyp of the descending colon was large and it came back as a tubulovillous adenoma she had an inflammatory polyp in the proximal part of the descending colon. 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 It was negative for lymphovascular or perineural invasion. Tumor budding score was low. Deep and mucosal margins were negative for carcinoma or adenoma. Her most recent PET scan shows that the area in the rectum is still lighting up more. Objective:Blood pressure 108/56, pulse 85, temperature 36.3 ?C (97.3 ?F), height 160 cm (5' 3 ), weight 64 kg (141 lb), SpO2 95 %. Abdomen is soft and nontender Assessment:Abnormal pet scan of colon (primary encounter diagnosis) Plan: I am going to reach out to some colleagues to see if we should repeat a colonoscopy on her to see if we can do deep biopsies of the rectal area to see if there is any abnormality seen. I will see her back in the office to discuss this in about a month [facility] 01-20-2023 History of Present illness Narrative Subjective: Patient is status post a colonoscopy completed at the [facility] in [place] on 10/02/2022 3 polyps were removed and the descending colon x2 in the sigmoid colon x1. The second polyp of the descending colon was large and it came back as a tubulovillous adenoma she had an inflammatory polyp in the proximal part of the descending colon. 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 It was negative for lymphovascular or perineural invasion. Tumor budding score was low. Deep and mucosal margins were negative for carcinoma or adenoma. Her most recent PET scan shows that the area in the rectum is still lighting up more. Objective:Blood pressure 108/56, pulse 85, temperature 36.3 C (97.3 F), height 160 cm (5' 3 ), weight 64 kg (141 lb), SpO2 95 %. Abdomen is soft and nontender Assessment:Abnormal pet scan of colon (primary encounter diagnosis) Plan: I am going to reach out to some colleagues to see if we should repeat a colonoscopy on her to see if we can do deep biopsies of the rectal area to see if there is any abnormality seen. I will see her back in the office to discuss this in about a month documented in this encounter [facility] 12-15-2022 Note HNO ID: [id number] Author: Mario Cardona, DO Service: ? Author Type: Physician Type: Progress Notes Filed: 12/15/2022 11:40 AM Note Text: Diagnosis: 1) Stage IV NSCLC. HPI: The patient is a 77 yo female who was diagnosed with NSCLC. She was initially found to have a lung mass when undergoing work up for cough and acute left sided flank pain. CXR revealed a left lung mass and subsequent CT chest revealed left lung mass on 10/21/13. She was then referred to [facility] and underwent diagnostic bronchoscopy with transbronchial FNA that were completed on 11/04/13. Found to have an adenocarcinoma at 11L and the LLL mass. It was EGFR mutation negative and ALK translocation negative. Patient was then admitted to the hospital on 11/08/13 with complaints of acute onset hemiparesis with left-sided weakness of the arm and leg. MRI brain on 11/08/13 revealed a solitary right cystic/necrotic peripherally enhancing mass measuring 2.4 cm. She subsequently underwent a right-sided craniotomy and resection of brain tumor on 11/09/13. Then received SRS. Underwent further evaluation with mediastinal lymph node evaluation--negative. She underwent EGD and colonoscopy on 11/24/2018. On the EGD portion of the exam, she was noted to have normal appearing mucosa of the esophagus, stomach as well as the first and second portions of the duodenum. On colonoscopy a 3-6 mm polyp was identified in the cecum and removed with cold biopsy forceps. There were nonbleeding external and internal hemorrhoids noted. Hemorrhoid banding was performed. Pathology demonstrated the polyp to have active inflammation consistent with an inflammatory polyp. Previous therapy: 1) Right-sided craniotomy and resection of brain tumor on 11/09/13 followed by [facility]. 2) Carboplatin/Alimta x5 cycles. 3) Completed radiation to left lung 08/30/2014. Received 6600 cGy in 33 fractions. 4) Maintenance Alimta x16 cycles. PD. 5) Nivolumab since 09/2015 through 07/2022. CR. Presents for ongoing management. Interim history: Had colonoscopy. 2 polyps removed from the descending colon and one larger one from the sigmoid colon. Pathology: A. Colon, descending, polyp #1, polypectomy: - Features of inflammatory-type polyp (see comment). B. Colon, descending, polyp #2, polypectomy: - Tubulovillous adenoma. C. Colon, sigmoid, polyp, polypectomy: - Invasive moderately differentiated adenocarcinoma in a background of tubulovillous adenoma with high-grade dysplasia. - Negative for lymphovascular or perineural invasion. - Tumor budding score low. - Deep and mucosal margins negative for carcinoma or adenoma. - See comment and synoptic report. SPECIMEN Specimen Integrity Intact TUMOR Tumor Site Sigmoid colon Histologic Type Adenocarcinoma Histologic Grade G2, moderately differentiated Tumor Extent Invades submucosa Lymphovascular Invasion Not identified Number of Tumor Buds 1 per 'hotspot' field Tumor Wagener Score Low (0-4) Type of Polyp in which Invasive Carcinoma Arose Tubulovillous adenoma Polyp Size Greatest Polyp Dimension (Centimeters): 1.6 cm Polyp Configuration Pedunculated with stalk MARGINS Margin Status for Invasive Carcinoma All margins negative for invasive carcinoma Distance from Invasive Carcinoma to Deep (Stalk) Margin estimated to be at least 9 mm mm Distance from Invasive Carcinoma to Mucosal Margin estimated to be at least 9 mm mm Margin Status for Non-Invasive Tumor All margins negative for adenoma Mismatch repair (MMR) interpretation: Proficient (microsatellite stable) Results Mismatch Repair Protein Immunohistochemistry Results: MLH1: Normal/Intact Nuclear Expression PMS2: Normal/Intact Nuclear Expression MSH2: Normal/Intact Nuclear Expression MSH6: Normal/Intact Nuclear Expression Occasional bleeding from hemorrhoid when not moving bowels. Stable intermittent sensory neuropathy of the feet. Manifested as numbness in the balls of the feet into the toes. Occurs only on occasion. No diplopia with prism lenses. No headaches. Palpitations controlled with metoprolol. No chronic cough. No dyspnea with exertion. No chest pain. PMH, medications and allergies as below personally reviewed by me today. Any changes documented in appropriate section. ROS: Constitutional: Denies episodes of fever and night sweats. Neuro: See above. HEENT: No recent change in voice or hearing. RESP: See above. CVS: No PND or orthopnea. No lower extremity swelling/edema. GI: Denies dysgeusia. Denies symptoms of stomatitis. Denies dysphagia and odynophagia. Denies reflux and abdominal pain. : Denies dysuria or gross hematuria. No symptoms of bladder outlet obstruction. Endo: Denies hot flashes. Denies polyuria and polydipsia. Denies heat and cold intolerance. Derm: Denies jaundice and diffuse pruritis. Heme: Denies unusual bleeding and unexplained bruising. Psych: Normal mood. PHYSICAL EXAM: V (more content not included)... [facility] 12-15-2022 Note HNO ID: [id number] Author: Chata Borges RN Service: ? Author Type: Registered Nurse Type: Progress Notes Filed: 12/15/2022 10:23 AM Note Text: Patient is here for IVAD port flush/blood draw per [facility] protocol. IVAD is located in left upper chest. Site cleansed with Chloraprep IVAD accessed with a #20 gauge 3/4 non-coring Gripper needle Flush with 5cc's Normal Saline. Blood Return: Good. 10 cc's blood aspirated and discarded. Blood drawn for CBC and CMP. Flushed with: 20 ml Normal Saline and 5 ml Heparin Lock Flush. Non-coring needle removed. Paper tape applied to puncture site. Site negative for redness, edema or tenderness. Patient tolerated procedure well. [facility] 12-15-2022 History of Present illness Narrative Diagnosis: 1) Stage IV NSCLC. HPI: The patient is a 77 yo female who was diagnosed with NSCLC. She was initially found to have a lung mass when undergoing work up for cough and acute left sided flank pain. CXR revealed a left lung mass and subsequent CT chest revealed left lung mass on 10/21/13. She was then referred to [facility] and underwent diagnostic bronchoscopy with transbronchial FNA that were completed on 11/04/13. Found to have an adenocarcinoma at 11L and the LLL mass. It was EGFR mutation negative and ALK translocation negative. Patient was then admitted to the hospital on 11/08/13 with complaints of acute onset hemiparesis with left-sided weakness of the arm and leg. MRI brain on 11/08/13 revealed a solitary right cystic/necrotic peripherally enhancing mass measuring 2.4 cm. She subsequently underwent a right-sided craniotomy and resection of brain tumor on 11/09/13. Then received SRS. Underwent further evaluation with mediastinal lymph node evaluation--negative. She underwent EGD and colonoscopy on 11/24/2018. On the EGD portion of the exam, she was noted to have normal appearing mucosa of the esophagus, stomach as well as the first and second portions of the duodenum. On colonoscopy a 3-6 mm polyp was identified in the cecum and removed with cold biopsy forceps. There were nonbleeding external and internal hemorrhoids noted. Hemorrhoid banding was performed. Pathology demonstrated the polyp to have active inflammation consistent with an inflammatory polyp. Previous therapy: 1) Right-sided craniotomy and resection of brain tumor on 11/09/13 followed by [facility]. 2) Carboplatin/Alimta x5 cycles. 3) Completed radiation to left lung 08/30/2014. Received 6600 cGy in 33 fractions. 4) Maintenance Alimta x16 cycles. PD. 5) Nivolumab since 09/2015 through 07/2022. CR. Presents for ongoing management. Interim history: Had colonoscopy. 2 polyps removed from the descending colon and one larger one from the sigmoid colon. Pathology: A. Colon, descending, polyp #1, polypectomy: - Features of inflammatory-type polyp (see comment). B. Colon, descending, polyp #2, polypectomy: - Tubulovillous adenoma. C. Colon, sigmoid, polyp, polypectomy: - Invasive moderately differentiated adenocarcinoma in a background of tubulovillous adenoma with high-grade dysplasia. - Negative for lymphovascular or perineural invasion. - Tumor budding score low. - Deep and mucosal margins negative for carcinoma or adenoma. - See comment and synoptic report. SPECIMEN Specimen Integrity Intact TUMOR Tumor Site Sigmoid colon Histologic Type Adenocarcinoma Histologic Grade G2, moderately differentiated Tumor Extent Invades submucosa Lymphovascular Invasion Not identified Number of Tumor Buds 1 per 'hotspot' field Tumor Wagener Score Low (0-4) Type of Polyp in which Invasive Carcinoma Arose Tubulovillous adenoma Polyp Size Greatest Polyp Dimension (Centimeters): 1.6 cm Polyp Configuration Pedunculated with stalk MARGINS Margin Status for Invasive Carcinoma All margins negative for invasive carcinoma Distance from Invasive Carcinoma to Deep (Stalk) Margin estimated to be at least 9 mm mm Distance from Invasive Carcinoma to Mucosal Margin estimated to be at least 9 mm mm Margin Status for Non-Invasive Tumor All margins negative for adenoma Mismatch repair (MMR) interpretation: Proficient (microsatellite stable) Results Mismatch Repair Protein Immunohistochemistry Results: MLH1: Normal/Intact Nuclear Expression PMS2: Normal/Intact Nuclear Expression MSH2: Normal/Intact Nuclear Expression MSH6: Normal/Intact Nuclear Expression Occasional bleeding from hemorrhoid when not moving bowels. Stable intermittent sensory neuropathy of the feet. Manifested as numbness in the balls of the feet into the toes. Occurs only on occasion. No diplopia with prism lenses. No headaches. Palpitations controlled with metoprolol. No chronic cough. No dyspnea with exertion. No chest pain. PMH, medications and allergies as below personally reviewed by me today. Any changes documented in appropriate section. ROS: Constitutional: Denies episodes of fever and night sweats. Neuro: See above. HEENT: No recent change in voice or hearing. RESP: See above. CVS: No PND or orthopnea. No lower extremity swelling/edema. GI: Denies dysgeusia. Denies symptoms of stomatitis. Denies dysphagia and odynophagia. Denies reflux and abdominal pain. : Denies dysuria or gross hematuria. No symptoms of bladder outlet obstruction. Endo: Denies hot flashes. Denies polyuria and polydipsia. Denies heat and cold intolerance. Derm: Denies jaundice and diffuse pruritis. Heme: Denies unusual bleeding and unexplained bruising. Psych: Normal mood. PHYSICAL EXAM: VITALS: Well-appearing and in no acute distress. The sclera are anicteric bilaterally. Strabismus left eye. NECK: Supple. LYMPHATIC: There is no palpable cervical or supraclavicular adenopathy. RESPIRATORY: Inspiratory breath sounds are of diminished intensity in all tse. No longer can appreciate inspiratory squeak/rub at the left base. No rales, wheezes or rhonchi. CARDIOVASCULAR: Rhythm is regular. ABDOMEN: The abdomen is nondistended. No organomegaly. No tenderness. Extremities: No swelling or edema. SKIN: No jaundice or rash. LABS: Component Latest Ref Rng & Units 12/15/2022 WBC 3.70 - 11.00 k/uL 5.81 RBC 3.90 - 5.20 m/uL 4.79 Hemoglobin 11.5 - 15.5 g/dL 12.5 Hematocrit 36.0 - 46.0 % 39.1 MCV 80.0 - 100.0 fL 81.6 MCH 26.0 - 34.0 pg 26.1 MCHC 30.5 - 36.0 g/dL 32.0 RDW-CV 11.5 - 15.0 % 14.0 Platelet Count 150 - 400 k/uL 290 MPV 9.0 - 12.7 fL 10.9 Neut% % 74.3 Abs Neut (ANC) 1.45 - 7.50 k/uL 4.32 Lymph% % 15.3 Abs Lymph 1.00 - 4.00 k/uL 0.89 (L) [facility]% % 6.[address] [place] <0.87 k/uL 0.39 Eosin% % 2.1 Abs Eosin <0.46 k/uL 0.12 Baso% % 1.4 Abs Baso <0.11 k/uL 0.08 Immature Gran % % 0.2 IMMATURE GRANS (ABS) <0.10 k/uL <0.03 NRBC /100 WBC 0.0 Absolute nRBC <0.01 k/uL <0.01 DTYPE Auto Protein, Total 6.3 - 8.0 g/dL 6.3 Albumin 3.9 - 4.9 g/dL 4.2 Calcium 8.5 - 10.2 mg/dL 8.9 Bilirubin, Total 0.2 - 1.3 mg/dL 0.4 Alkaline Phosphatase 34 - 123 U/L 80 AST 13 - 35 U/L 15 ALT 7 - 38 U/L 8 Glucose 74 - 99 mg/dL 96 BUN 7 - 21 mg/dL 17 Creatinine 0.58 - 0.96 mg/dL 0.93 Sodium 136 - 144 mmol/L 141 Potassium 3.7 - 5.1 mmol/L 4.0 Chloride 97 - 105 mmol/L 103 CO2 22 - 30 mmol/L 28 Anion Gap 9 - 18 mmol/L 10 eGFR >=60 mL/min/1.73m 63 ASSESSMENT/PLAN: (162.9) Adenocarcinoma of lung, stage 4, left (HCC) (primary encounter diagnosis) Comment: -KPS is 100%. -Reviewed the results of the PET scan in detail. Possible anorectal finding secondary to hemorrhoids. Stable findings left lower lobe of radiation. -Discussed plan for continued observation. Plan another PET scan in [address] chest, abdomen pelvis following that. Plan: -OV following PET in 6 months. 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 Then received SRS. -Stable diplopia corrected with prisms. Etiology unclear. -Paraneoplastic antibody panel negative. -No evidence of MG. -Neurologically stable Plan: -Repeat MRI brain per neurosurgery. (D50.0) Iron deficiency anemia due to chronic blood loss Assessment: -Bleeding hemorrhoids. -Reviewed CBC. No anemia now. -Tolerating iron well without significant constipation. -Recent pedunculated cancerous polyp with favorable histologic features removed. Plan: -Continue oral iron. -Has follow-up with Dr. Bonds scheduled for this for repeat examination. -Next colonoscopy per his discretion. -Monitor CBC and iron studies periodically. (G62.9) Sensory neuropathy Assessment: -Small fiber neuropathy per neurology. -Stable. Plan: -Monitor. Portions of this documentation were copied and pasted from previous office visit notes in order to provide a cohesive continuity of the history. The note has been reviewed and edited and updated as necessary. I spent a total of 30 minutes on the date of the service which included preparing to see the patient, [id number] patient care, completing clinical documentation, obtaining and/or reviewing separately obtained history, performing a medically appropriate examination, counseling and educating the patient/family/caregiver, ordering medications, tests, or procedures, communicating with other HCPs (not separately reported), and communicating results to the patient/family/caregiver. Mario Cardona DO documented in this encounter [facility] 12-15-2022 History of Present illness Narrative Patient is here for IVAD port flush/blood draw per [facility] protocol. IVAD is located in left upper chest. Site cleansed with Chloraprep IVAD accessed with a #20 gauge 3/4 non-coring Gripper needle Flush with 5cc's Normal Saline. Blood Return: Good. 10 cc's blood aspirated and discarded. Blood drawn for CBC and CMP. Flushed with: 20 ml Normal Saline and 5 ml Heparin Lock Flush. Non-coring needle removed. Paper tape applied to puncture site. Site negative for redness, edema or tenderness. Patient tolerated procedure well. documented in this encounter [facility] 12-09-2022 Note HNO ID: [id number] Author: RT Alyssia(R) Service: Radiology Author Type: Technologist Type: Progress Notes Filed: 12/09/2022 11:20 AM Note Text: RADIOLOGY SERVICE PROGRESS NOTE SERVICE DATE: 12/09/2022 SERVICE TIME: 11:19 AM PATIENT IDENTITY VERIFICATION COMPLETED USING TWO (2) STANDARD IDENTIFIERS: Name and Date of confirmed by patient verbally FALL SCREENING: Has the patient had 2 falls in the last year or 1 fall with injury or currently using an Ambulatory Assistive Device (Walker, Cane, Wheelchair, Crutches, etc.)? No PATIENT GENDER DATA: .female : No ALLERGIES: Reviewed and unchanged MEDICATIONS REVIEWED: Yes PATIENT RELEVANT IMPLANT DATA REVIEWED: Not Applicable CREATININE: Creatinine Date Value Ref Range Status 09/17/2022 0.79 0.58 - 0.96 mg/dL Final 07/21/2022 0.78 0.58 - 0.96 mg/dL Final 06/26/2022 0.75 0.58 - 0.96 mg/dL Final Estimated Glomerular Filtration Rate Date Value Ref Range Status 09/17/2022 77 >=60 mL/min/1.73m? Final Comment: Estimated Glomerular Filtration Rate (eGFR) is calculated using the 2020 CKD-EPI creatinine equation. This equation utilizes serum creatinine, sex, and age as parameters. The creatinine assay has traceable calibration to isotope dilution-mass spectrometry. Refer to KDIGO guidelines for clinical interpretation. In patients with unstable renal function, e.g. those with acute kidney injury, the eGFR may not accurately reflect actual GFR. eGFR- Date Value Ref Range Status 07/23/2021 >60 Final P.O.C.T. RESULTS: N/A December 09, [address] PERFORMED: No IV SITE: Ambulatory: RI only - direct IV injection in the Right antecubital site POST EXAM PIV STATUS: Not applicable PROCEDURE TYPE: RI INJECT: PET/CT BODY SCAN. 11.0 mCi F18 FDG. No other medications given.. ADMINISTRATION TIME: 1113 PATIENT DISCHARGED TO: Ambulatory patient, left RI department area. A Diagnostic radioactive procedure has taken place, with no further precautions necessary other than routine body substance precautions. More information regarding radiation safety can be found using this link: [email or web address] [email or web address]%20Medic [email or web address] SIGNATURE: RT Alyssia(R) PATIENT NAME: Jenise Bullock DATE: December 09, 2022 TIME: 11:19 AM PAGER/CONTACT #: [facility] 12-09-2022 History of Present illness Narrative RADIOLOGY SERVICE PROGRESS NOTE SERVICE DATE: 12/09/2022 SERVICE TIME: 11:19 AM PATIENT IDENTITY VERIFICATION COMPLETED USING TWO (2) STANDARD IDENTIFIERS: Name and Date of confirmed by patient verbally FALL SCREENING: Has the patient had 2 falls in the last year or 1 fall with injury or currently using an Ambulatory Assistive Device (Walker, Cane, Wheelchair, Crutches, etc.)? No PATIENT GENDER DATA: .female : No ALLERGIES: Reviewed and unchanged MEDICATIONS REVIEWED: Yes PATIENT RELEVANT IMPLANT DATA REVIEWED: Not Applicable CREATININE: Creatinine Date Value Ref Range Status 09/17/2022 0.79 0.58 - 0.96 mg/dL Final 07/21/2022 0.78 0.58 - 0.96 mg/dL Final 06/26/2022 0.75 0.58 - 0.96 mg/dL Final Estimated Glomerular Filtration Rate Date Value Ref Range Status 09/17/2022 77 >=60 mL/min/1.73m Final Comment: Estimated Glomerular Filtration Rate (eGFR) is calculated using the 2020 CKD-EPI creatinine equation. This equation utilizes serum creatinine, sex, and age as parameters. The creatinine assay has traceable calibration to isotope dilution-mass spectrometry. Refer to KDIGO guidelines for clinical interpretation. In patients with unstable renal function, e.g. those with acute kidney injury, the eGFR may not accurately reflect actual GFR. eGFR- Date Value Ref Range Status 07/23/2021 >60 Final P.O.C.T. RESULTS: N/A December 09, [address] PERFORMED: No IV SITE: Ambulatory: RI only - direct IV injection in the Right antecubital site POST EXAM PIV STATUS: Not applicable PROCEDURE TYPE: RI INJECT: PET/CT BODY SCAN. 11.0 mCi F18 FDG. No other medications given.. ADMINISTRATION TIME: 1113 PATIENT DISCHARGED TO: Ambulatory patient, left RI department area. A Diagnostic radioactive procedure has taken place, with no further precautions necessary other than routine body substance precautions. More information regarding radiation safety can be found using this link: [email or web address] [email or web address]%20 [email or web address] SIGNATURE: JOVANI Cade) PATIENT NAME: Jenise Bullock DATE: December 09, 2022 TIME: 11:19 AM PAGER/CONTACT #: documented in this encounter [facility] 10-20-2022 Miscellaneous Notes The following approved medication requests have been transmitted electronically. Requested Prescriptions Pending Prescriptions Disp Refills metoprolol tartrate, short acting, (LOPRESSOR) 25 mg tablet 30 tablet 1 Sig: Take 0.5 tablets by mouth twice daily. And an extra 1/2 tab if palpitations are worse Jose Roberto Dumont APRN.CNP Patient phones requesting refills as follows: Requested Prescriptions Pending Prescriptions Disp Refills metoprolol tartrate, short acting, (LOPRESSOR) 25 mg tablet 30 tablet 1 Sig: Take 0.5 tablets by mouth twice daily. And an extra 1/2 tab if palpitations are worse KENDAL-04/07/22 Labs-10/13/22 NOV-none med filled 08/19/22 Please review and advise. Ria Dietrich LPN documented in this encounter [facility] 10-15-2022 Miscellaneous Notes Patient is aware of plan of care and verbalized understanding. Shoshana Hart LPN I spoke with Dr. Bonds about this. He completely removed the cancerous polyp. He had recommended repeating a PET scan in about 2 to 3 months. The cancerous polyp was completely different than her previous lung cancer so no indication to go back on immunotherapy. We can keep the PET scan and office visit as scheduled. Mario Cardona DO Patient stopped in office today with some concerns: Concerned about PET scan results from 08/12/2022 that lead to colonoscopy. Had colonoscopy with Dr. Bonds 10/02/2022. Concerned about pathology results. FINAL DIAGNOSIS A. Colon, descending, polyp #1, polypectomy: - Features of inflammatory-type polyp (see comment). B. Colon, descending, polyp #2, polypectomy: - Tubulovillous adenoma. C. Colon, sigmoid, polyp, polypectomy: - Invasive moderately differentiated adenocarcinoma in a background of tubulovillous adenoma with high-grade dysplasia. - Negative for lymphovascular or perineural invasion. - Tumor budding score low. - Deep and mucosal margins negative for carcinoma or adenoma. - See comment and synoptic report. Is questioning if she should be back on treatment. Shoshana Hart LPN documented in this encounter [facility] 10-13-2022 Note HNO ID: [id number] Author: Ronak Sarkar MD Service: ? Author Type: Physician Type: Progress Notes Filed: 10/13/2022 9:55 AM Note Text: General Neurology Outpatient Clinic - new patient evaluation Date: September 29, 2022 Patient Name: Jenise Bullock Referring physician: Mario Cardona [address] [facility] [address] Primary physician: Elaine Arteaga [address] [facility] [place] [address] Reason for Evaluation: Paresthesias The pt is a 77yo Right handed female with hx of - NSCLC c/b R brain mets s/p craniotomy and resection 11/09/13 Referred by hematology for neurological consultation regarding sensory neuropathy. My opinions and recommendations will be shared with consulting team via electronic medical record Per EMR, patient saw hem/onc 09/17/2022 for follow-up of NSCLC with brain met s/p craniotomy and resection 11/09/13 followed by [facility]. Also received carboplatin/Alimta x5 cycles, on maintenance Alimta x16 cycles and then nivolumab since September 2015 until July 2022. Per patient, she's had intermittent paresthesias here and there based on how she positions her legs pretty much her whole life. They come and go and are unchanged. No other known family history of neuropathy or nerve conditions. Around 2013, the time of her cancer diagnosis, she started noticing more focal burning and tingling in the balls of her feet. These sensations were very mild and intermittent in nature. She didn't think much about them because of her lifelong history of intermittent paresthesias. She thinks they were present even before she started chemotherapy but she's not sure since they were so mild and she hadn't paid much attention. These symptoms continued to come and go over the years. She did not feel any different during nivolumab treatment. In recent months, however, she's noticed that the paresthesias are coming more often, though still remaining transient and self-resolving. Lasts at most 10-15min about daily now but can also be more brief. No pattern or clear triggers. No swelling ,rash ,Raynaud's, imbalance during this time. She has also noticed some symptoms now in her calves, knees, and thighs at times. They're more annoying than bothersome. She's actually more bothered by her intermittent heart palpitations though she states the metoprolol has helped. She denies alcohol, tobacco, other drug use. No dietary restrictions. No known history of diabetes. Prior neurological workup: 07/14/2022 MRI brain [facility] OUTPATIENT MEDICATIONS Current Outpatient Medications on File Prior to Visit Medication Sig metoprolol tartrate, short acting, (LOPRESSOR) 25 mg tablet Take 0.5 tablets by mouth twice daily. And an extra 1/2 tab if palpitations are worse LORazepam (ATIVAN) 1 mg tablet Take 1 tablet by mouth every 8 hours as needed for up to 14 days. ferrous sulfate 325 mg (65 mg iron) EC tablet Take 65 mg by mouth every other day. multivitamin tablet Take 1 tablet by mouth once daily. acetaminophen (TYLENOL) 500 mg tablet Take 1,000 mg by mouth every 8 hours as needed. diphenhydrAMINE (BENADRYL) 25 mg tablet Take 25 mg by mouth every 8 hours as needed. Omeprazole Magnesium (PRILOSEC OTC) 20 mg tablet Take 2 tablets by mouth once daily. (Patient taking differently: Take 20 mg by mouth once daily.) ibuprofen (MOTRIN) 200 mg tablet Take 200 mg by mouth every 6 hours as needed. No current facility-administered medications on file prior to visit. 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) Snoring SURGICAL HISTORY PAST SURGICAL HISTORY Procedure Laterality Date BRAIN SURGERY HX BRONCHOSCOPY 11/04/2013 COLONOSCOPY FLX DX W/COLLJ SPEC WHEN PFRMD 11/24/2018 Colonoscopy COLONSCOPY SCREENING HIGH RISK 10/02/2022 ESOPHAGOGASTRODUODENOSCOPY TRANSORAL DIAGNOSTIC 11/24/2018 EGD EXPLORE CRANIOTOMY 11/09/2013 right sided resection of brain tumor INSJ TUNNELED CTR VAD W/SUBQ PORT AGE 5 YR/> Right 08/13/2016 subclavian IR TUNNELED PORT INSERTION PAST SURGICAL HISTORY OF 1993 right axillary cyst removed PAST SURGICAL HISTORY OF 1962 lymph node removed from back of neck while in high school SALPINGO-OOPHORECTOMY COMPL/PRTL UNI/BI SPX 1983 TONSILLECTOMY HX SOCIAL HISTORY Social History Tobacco Use Smoking status: Former Packs/day: 1.00 Years: 48.00 Pack years: 48.00 Types: Cigarettes Start date: 11/01/1964 Quit date: 10/24/2013 Years since quittin.9 Smokeless tobacco: Never Tobacco comments: Pt smoked one pack a week on AND off for 48 years, had quit four times in the past. Vaping Use Vaping Use: Never (more content not included)... [facility] 10-13-2022 Instructions Ronak Sarkar MD - 10/13/2022 9:33 AM EDT You likely have peripheral small fiber sensory neuropathy, meaning the small nerves are hurt from something. Age can be a factor, but lots of other things like chemotherapy, diabetes, vitamin deficiencies can also cause nerve damage. So, we're going to check your blood work for some of those things. If you symptoms worsen, become more persistent, or you start experiencing more balance issues, please let me know. In those cases, we would do more invasive testing about the health of nerves: - for large nerves that tell us about vibration and position sense: EMG in which we literally shock the nerves - for small nerves that tell us about pain, temperature, edges: skin biopsy to look at the nerves under the microscope There are medicines that can reduce the tingling symptoms. Some patients also try a supplement called alpha lipoic acid, which is an antioxidant, to help with the tingling symptoms documented in this encounter [facility] 10-13-2022 History of Present illness Narrative Images from the original note were not included. General Neurology Outpatient Clinic - new patient evaluation Date: September 29, 2022 Patient Name: Jenise Bullock Referring physician: Mario Cardona [address] [facility] [address] Primary physician: Elaine Arteaga [address] [place] [address] Reason for Evaluation: Paresthesias The pt is a 77yo Right handed female with hx of - NSCLC c/b R brain mets s/p craniotomy and resection 11/09/13 Referred by hematology for neurological consultation regarding sensory neuropathy. My opinions and recommendations will be shared with consulting team via electronic medical record Per EMR, patient saw hem/onc 09/17/2022 for follow-up of NSCLC with brain met s/p craniotomy and resection 11/09/13 followed by [facility]. Also received carboplatin/Alimta x5 cycles, on maintenance Alimta x16 cycles and then nivolumab since September 2015 until July 2022. Per patient, she's had intermittent paresthesias here and there based on how she positions her legs pretty much her whole life. They come and go and are unchanged. No other known family history of neuropathy or nerve conditions. Around 2013, the time of her cancer diagnosis, she started noticing more focal burning and tingling in the balls of her feet. These sensations were very mild and intermittent in nature. She didn't think much about them because of her lifelong history of intermittent paresthesias. She thinks they were present even before she started chemotherapy but she's not sure since they were so mild and she hadn't paid much attention. These symptoms continued to come and go over the years. She did not feel any different during nivolumab treatment. In recent months, however, she's noticed that the paresthesias are coming more often, though still remaining transient and self-resolving. Lasts at most 10-15min about daily now but can also be more brief. No pattern or clear triggers. No swelling ,rash ,Raynaud's, imbalance during this time. She has also noticed some symptoms now in her calves, knees, and thighs at times. They're more annoying than bothersome. She's actually more bothered by her intermittent heart palpitations though she states the metoprolol has helped. She denies alcohol, tobacco, other drug use. No dietary restrictions. No known history of diabetes. Prior neurological workup: 07/14/2022 MRI brain [facility] OUTPATIENT MEDICATIONS Current Outpatient Medications on File Prior to Visit Medication Sig metoprolol tartrate, short acting, (LOPRESSOR) 25 mg tablet Take 0.5 tablets by mouth twice daily. And an extra 1/2 tab if palpitations are worse LORazepam (ATIVAN) 1 mg tablet Take 1 tablet by mouth every 8 hours as needed for up to 14 days. ferrous sulfate 325 mg (65 mg iron) EC tablet Take 65 mg by mouth every other day. multivitamin tablet Take 1 tablet by mouth once daily. acetaminophen (TYLENOL) 500 mg tablet Take 1,000 mg by mouth every 8 hours as needed. diphenhydrAMINE (BENADRYL) 25 mg tablet Take 25 mg by mouth every 8 hours as needed. Omeprazole Magnesium (PRILOSEC OTC) 20 mg tablet Take 2 tablets by mouth once daily. (Patient taking differently: Take 20 mg by mouth once daily.) ibuprofen (MOTRIN) 200 mg tablet Take 200 mg by mouth every 6 hours as needed. No current facility-administered medications on file prior to visit. 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) Snoring SURGICAL HISTORY PAST SURGICAL HISTORY Procedure Laterality Date BRAIN SURGERY HX BRONCHOSCOPY 11/04/2013 COLONOSCOPY FLX DX W/COLLJ SPEC WHEN PFRMD 11/24/2018 Colonoscopy COLONSCOPY SCREENING HIGH RISK 10/02/2022 ESOPHAGOGASTRODUODENOSCOPY TRANSORAL DIAGNOSTIC 11/24/2018 EGD EXPLORE CRANIOTOMY 11/09/2013 right sided resection of brain tumor INSJ TUNNELED CTR VAD W/SUBQ PORT AGE 5 YR/> Right 08/13/2016 subclavian IR TUNNELED PORT INSERTION PAST SURGICAL HISTORY OF 1993 right axillary cyst removed PAST SURGICAL HISTORY OF 1962 lymph node removed from back of neck while in high school SALPINGO-OOPHORECTOMY COMPL/PRTL UNI/BI SPX 1982 TONSILLECTOMY HX SOCIAL HISTORY Social History Tobacco Use Smoking status: Former Packs/day: 1.00 Years: 48.00 Pack years: 48.00 Types: Cigarettes Start date: 11/01/1964 Quit date: 10/24/2013 Years since quittin.9 Smokeless tobacco: Never Tobacco comments: Pt smoked one pack a week on & off for 48 years, had quit four times in the past. Vaping Use Vaping Use: Never used Substance Use Topics Alcohol use: Yes Alcohol/week: 2.5 standard drinks Types: 1 Glasses of Wine (5oz) per week Comment: Occasionally Drug use: No FAMILY HISTORY FAMILY HISTORY Problem Relation Age of Onset Cancer Mother unk other (parkinson's disease) Father other (myasthenia gravis) Maternal Grandmother Cancer Maternal Grandfather throat Diabetes Paternal Grandmother Cancer Paternal Grandfather colo-rectal Cancer Brother bladder Cancer Paternal Uncle leukemia Cancer Paternal Aunt lung ALLERGIES ALLERGIES Allergen Reactions Penicillins Intolerance REVIEW OF SYSTEMS: No fevers, chills No chest pain. +palpitations No SOB +neck pain, chronic since her brain surgery No falls No imbalance +trigger finger on left middle finger No constipation, diarrhea +some urinary incontinence attributed to age and hx of childbirth +diplopia helped with prisms in her glasses PHYSICAL EXAM: BP (!) 116/45 (BP Site: Left Arm, BP Position: Sitting, BP Cuff Size: Regular Adult) Pulse 80 Resp 16 Ht 160 cm (5' 3 ) Wt 63.5 kg (140 lb) SpO2 100% BMI 24.80 kg/m General appearance: Well appearing, alert, in no acute distress. Wearing glasses Neurological exam: Mental Status: Alert, oriented to person, place and time and Follows commands. Cranial Nerves: PERRL, visual tse intact to confrontation, extraocular movements intact, facial sensation intact, face symmetric, no facial droop or ptosis, hearing intact to finger rub bilaterally, no dysarthria, palate elevate symmetrically, tongue protrudes midline, and shoulder shrug intact and symmetric. Motor: Right Upper: Left Upper: Deltoid: 5 Deltoid: 5 Triceps: 5 Triceps: 5 Biceps: 5 Biceps: 5 Safety Consultant: 5 Safety Consultant: 5 Finger abduction: 5 Finger abduction: 5 Finger adduction: 5 Finger adduction: 5 Right Lower: Left Lower: Iliopsoas: 5 Iliopsoas: 5 Knee flexor: 5 Knee flexor: 5 Knee extensor: 5 Knee extensor: 5 Dorsiflexion: 5 Dorsiflexion: 5 Plantarflexion: 5 Plantarflexion: 5 Motor Tone: Right Upper: Normal tone Left Upper: Normal tone Right Lower: Normal tone Left Lower: Normal tone Reflexes: 2/4 biceps, brachioradialis, patellars. 0/4 ankles. Downgoing plantars. No ankle clonus Sensation: absent pinprick balls of bilateral feet and plantar aspects of toes. Intact otherwise distal BLE to pinprick temperature, vibration, proprioception. Vibration in toes about 50-75% compared with vibratoin in ankles and knees. Intact BUE to touch, temperature, vibration, proprioception . Coordination: Finger-to- nose-finger intact bilaterally and [id number] intact bilaterally. Gait: normal-based. Independent tiptoe, heel, tandem gait Romberg: neg LABS/DATA: Component Latest Ref Rng & Units 09/17/2022 Albumin 3.43 - 5.41 g/dL 3.97 Alpha 1 Globulin 0.18 - 0.43 g/dL 0.36 Alpha 2 Globulin 0.42 - 0.98 g/dL 0.80 Beta Globulin 0.61 - 1.17 g/dL 0.76 Gamma Globulin 0.53 - 1.51 g/dL 0.41 (L) Interpretation (Prot Electro) No definitive M protein is identified on protein electrophoresis. No definitive M protein is identified on protein electrophoresis. Interpretation Comment for Protein Electrophoresis Hypogammaglobulinemia is present, which can be seen in the setting of monoclonal gammopathy. If clinically indicated, monoclonal protein analysis and serum free light chain analysis are suggested to evaluate further for monoclonal gammopathy. M-Protein Location M-Protein Concentration <=0.00 g/dL 0.00 SPE Staff Review Reviewed by Dr. Caden Irvin MD IgG 700 - 1,600 mg/dL 415 (L) IgA 70 - 400 mg/dL 121 IgM 40 - 230 mg/dL 104 Meyers Free, Serum 3.3 - 19.4 mg/L 18.7 Lambda Free, Serum 5.7 - 26.3 mg/L 9.6 K/L Ratio, Serum 0.26 - 1.65 1.95 (H) MPA Result No M protein is identified. No M protein is identified. Staff Review (MPA) Reviewed by Dr. Caden Irvin MD TSH 0.270 - 4.200 mIU/L 1.140 Vitamin B12 232 - 1,245 pg/mL 589 Folate >4.7 ng/mL >20.0 Protein, Total 6.3 - 8.0 g/dL 6.3 IMAGIN07/14/2022 MRI brain wwo Stable postoperative appearance of the brain since the 07/12/2021 exam. Exceedingly slow growing small left parietal convexity probable meningioma with no significant mass effect. Areas of paranasal sinus mucosal thickening with frothy sphenoid sinus secretions which may be seen in the setting of acute sinusitis. ASSESSMENT: The pt is a 77 year old female with a history of NSCLC c/b R brain mets s/p craniotomy and resection 11/09/13 who presents with intermittent BLE paresthesias since 2013. Her neurological examination is concerning for a peripheral neuropathy, more with small fiber modality. Recent labs with neg M protein, normal vit B12. Patient not too bothered by symptoms and is not having imbalance or falls as a result. THus, would be reasonable to defer EMG and skin nerve biopsy for evaluation in favor of clinical monitoring. Etiology may relate to prior chemo exposure though time course not certain with regards to exact onset. Will check blood for other factors that can contribute. Low suspicion that neuropathy is related to nivolumab exposure given onset in 2013. Patient elected to defer any neuropathic pain agents at this time. She does not like to take medicines unless necessary and is not too bothered currently by symptoms PLAN: - neuropathy labs - advised patient to check bottoms of feet daily prior to bed to look for injury - f/u prn I spent a total of 60 minutes on the date of the service which included preparing to see the patient, [id number] patient care, completing clinical documentation, obtaining and/or reviewing separately obtained history, performing a medically appropriate examination, counseling and educating the patient/family/caregiver, ordering medications, tests, or procedures, independently interpreting results (not separately reported), and communicating results to the patient/family/caregiver. Ronak Sarkar MD Staff, General Neurology Pager: [phone] CC: Referring Physician: Mario Cardona [address] [facility] [address] PCP: Elaine Arteaga [address] [place] [address] documented in this encounter [facility] 10-09-2022 Note HNO ID: [id number] Author: Artie Bonds MD Service: ? Author Type: Physician Type: Progress Notes Filed: 10/09/2022 2:31 PM Note Text: Subjective: Patient is status post a colonoscopy completed at the ambulatory surgery center in [place] on 10/02/2022 3 polyps were removed and the descending colon x2 in the sigmoid colon x1. The second polyp of the descending colon was large and it came back as a tubulovillous adenoma she had an inflammatory polyp in the proximal part of the descending colon. 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 It was negative for lymphovascular or perineural invasion. Tumor budding score was low. Deep and mucosal margins were negative for carcinoma or adenoma. She did have bleeding for about 24 hours after the procedure but has had none since. She has no abdominal pain. She does have a repeat PET scan coming up sometime in November. Objective:Blood pressure 108/52, pulse 107, temperature 36.8 ?C (98.2 ?F), height 160 cm (5' 3 ), weight 63.5 kg (140 lb), SpO2 97 %. Abdomen is soft and nontender Assessment:Malignant neoplasm of sigmoid colon (hcc) (primary encounter diagnosis) Plan: At this point I think probably repeating a colonoscopy in 6 months would be appropriate. And then repeating another one in 6 months after that and then getting her on a yearly schedule for 3 years would be appropriate. [facility] 10-09-2022 History of Present illness Narrative Subjective: Patient is status post a colonoscopy completed at the ambulatory surgery center in [place] on 10/02/2022 3 polyps were removed and the descending colon x2 in the sigmoid colon x1. The second polyp of the descending colon was large and it came back as a tubulovillous adenoma she had an inflammatory polyp in the proximal part of the descending colon. 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 It was negative for lymphovascular or perineural invasion. Tumor budding score was low. Deep and mucosal margins were negative for carcinoma or adenoma. She did have bleeding for about 24 hours after the procedure but has had none since. She has no abdominal pain. She does have a repeat PET scan coming up sometime in November. Objective:Blood pressure 108/52, pulse 107, temperature 36.8 C (98.2 F), height 160 cm (5' 3 ), weight 63.5 kg (140 lb), SpO2 97 %. Abdomen is soft and nontender Assessment:Malignant neoplasm of sigmoid colon (hcc) (primary encounter diagnosis) Plan: At this point I think probably repeating a colonoscopy in 6 months would be appropriate. And then repeating another one in 6 months after that and then getting her on a yearly schedule for 3 years would be appropriate. documented in this encounter [facility] 10-07-2022 Miscellaneous Notes Patient had called back on 10/03/22 in the morning and stated was much better. No more clots or bleeding. Evelia Torres LPN Can you give this patient a call make sure she is doing okay Patient called with concerns had a colonoscopy with Dr Bonds today 10/02/22 and is having some stringy blood clots and dark blood in her Depends and when having a BM. NO other symptoms. Informed patient to go to ER if symptom worsen, increase clots and blood and minor cramping. Asked patient to give us a call tomorrow morning and let us know how doing. Patient voiced understanding. FYI Evelia Torres LPN documented in this encounter [facility] 10-02-2022 Nurse Note Patient at bedrest for 45 minutes. Upon arising to get dressed, had an increase in serosanguineous rectal drainage. Patient continues to deny discomfort. Abdomen soft and non-distended. Drainage color and amount reported to Dr. Bonds. No change in orders given. Dr. Bonds at patient's bedside to review results with her. Octavia Dorsey RN Awake, alert, and oriented. Denies complaints of pain or discomfort. Passing flatus freely. Abdomen soft. Octavia Dorsey RN Arrived in phase II via cart. Left lateral position. Sedated, but responds to verbal stimuli. Color normal; skin warm and dry. Respirations wnl and unlabored. Abdomen soft and with + bowel sounds in quads X 4. Patient resting comfortably. Octavia Dorsey RN documented in this encounter [facility] 10-02-2022 History and physical note Images from the original note were not included. HISTORY AND PHYSICAL Jenise Bullock 1945 REFERRING PHYSICIAN: Mario Cardona DO CHIEF COMPLAINT: Consult (colonoscopy) HPI: The patient is a 77 year old female referred for endoscopy. The patient denies blood in stools, denies abdominal pain, and denies changes in bowel habits. Patient does note intermittent chronic constipation. The patient notes no colon cancer in immediate family. The patient has had previous colonoscopy in 2019 with inflammatory polyp found. Patient has known lung cancer with metastatic disease to brain. She had a recent PET scan which revealed increased focal areas of uptake in the descending/sigmoid colon and anorectal area. 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) Snoring PAST SURGICAL HISTORY Procedure Laterality Date BRONCHOSCOPY 11/04/13 COLONOSCOPY FLX DX W/COLLJ SPEC WHEN PFRMD 11/24/2018 Colonoscopy ESOPHAGOGASTRODUODENOSCOPY TRANSORAL DIAGNOSTIC 11/24/2018 EGD EXPLORE CRANIOTOMY 11/09/13 right sided resection of brain tumor INSJ TUNNELED CTR VAD W/SUBQ PORT AGE 5 YR/> Right 08/13/2016 subclavian PAST SURGICAL HISTORY OF 1993 right axillary cyst removed PAST SURGICAL HISTORY OF 1962 lymph node removed from back of neck while in high school SALPINGO-OOPHORECTOMY COMPL/PRTL UNI/BI SPX 1983 TONSILLECTOMY HX Current Outpatient Medications Medication Sig LORazepam (ATIVAN) 1 mg tablet Take 1 tablet by mouth every 8 hours as needed for up to 14 days. sertraline (ZOLOFT) 50 mg tablet Take 1 tablet by mouth once daily. ferrous sulfate 325 mg (65 mg iron) EC tablet Take 65 mg by mouth every other day. multivitamin tablet Take 1 tablet by mouth once daily. acetaminophen (TYLENOL) 500 mg tablet Take 1,000 mg by mouth every 8 hours as needed. diphenhydrAMINE (BENADRYL) 25 mg tablet Take 25 mg by mouth every 8 hours as needed. Omeprazole Magnesium (PRILOSEC OTC) 20 mg tablet Take 2 tablets by mouth once daily. (Patient taking differently: Take 40 mg by mouth once daily. 1 tablet daily) ibuprofen (MOTRIN) 200 mg tablet Take 200 mg by mouth every 6 hours as needed. peg 3350-Electrolytes (GOLYTELY) 236-22.74-6.74 -5.86 gram suspension Take 4,000 mL by mouth one time only for 1 dose. Refer to printed prep instructions from your provider. metoprolol tartrate, short acting, (LOPRESSOR) 25 mg tablet Take 0.5 tablets by mouth twice daily. And an extra 1/2 tab if palpitations are worse ALLERGIES: Penicillins PERSONAL HISTORY: Social History Tobacco Use Smoking status: Former Packs/day: 1.00 Years: 48.00 Pack years: 48.00 Types: Cigarettes Start date: 11/01/1964 Quit date: 10/24/2013 Years since quittin.8 Smokeless tobacco: Never Tobacco comments: Pt smoked one pack a week on & off for 48 years, had quit four times in the past. Vaping Use Vaping Use: Never used Substance Use Topics Alcohol use: Yes Alcohol/week: 2.5 standard drinks Types: 1 Glasses of Wine (5oz) per week Comment: Occasionally Drug use: No FAMILY HISTORY Problem Relation Age of Onset Cancer Mother unk other (parkinson's disease) Father other (myasthenia gravis) Maternal Grandmother Cancer Maternal Grandfather throat Diabetes Paternal Grandmother Cancer Paternal Grandfather colo-rectal Cancer Brother bladder Cancer Paternal Uncle leukemia Cancer Paternal Aunt lung The review of systems data was entered by the nurse and reviewed by me Nursing Notes: Evelia Torres LPN 08/19/2022 10:33 AM Signed REVIEW OF SYSTEMS: General: The patient denies fatigue, denies weight loss, denies weight gain, denies feeling hot, and denies feelings of cold. Eyes: The patient denies glaucoma, denies eye injury/surgery, wears glasses or contacts. Ear/Nose/Throat: The patient notes allergies, denies hayfever, denies ear infections, and denies bloody noses. Cardiovascular: The patient denies chest pain, denies heart disease, denies high blood pressure,denies cardiac stent, denies prior heart attack, denies irregular heart beat, denies high cholesterol, denies poor circulation, denies heart failure, other cardiac issues, denies claudication, denies cold feet, denies peripheral arterial stent. Respiratory: The patient denies tuberculosis, denies pneumonia, denies frequent cough, denies pulmonary embolism, denies shortness of breath, and denies coughing up blood. Gastrointestinal: The patient denies difficulty swallowing, notes acid reflux, denies ulcers, denies vomiting, denies jaundice/hepatitis, denies gallbladder problems, denies black or tarry stools, notes hemorrhoids, denies bleeding from rectum, denies diverticulitis, denies constipation, denies diarrhea, denies loss of stool control, and denies hernias. Kidney/Bladder: The patient notes kidney stones, notes urine infections, and denies bloody urine. Skin: The patient denies a history of skin cancer, denies bleeding/changing moles, and denies a history of skin rash. Neurologic: The patient denies a history of epilepsy/convulsions, denies headaches, denies head/spinal injuries, and denies stroke/TIA. Psychiatric: The patient denies psychiatric medications, denies depression, and denies voices, denies substance abuse. Endocrine: The patient denies thyroid disorders, denies diabetes, and denies hormonal problems. Hematologic: The patient denies a history of bruising, denies bleeding, and notes anemia, denies blood clots. Infections: The patient denies a history of measles and mumps, denies rheumatic fever, and denies sexually transmitted diseases. Musculoskeletal: The patient denies back pain/injury, denies back problems, denies sciatica, denies knee/foot trouble, notes arthritis, or denies gout. When was patient's last Mammogram screening? unknown Last Colonoscopy: 2019 Evelia Torres LPN PHYSICAL EXAMINATION: General: The patient is 77 year old female, well nourished, well hydrated in no acute distress. The patient is oriented to time, place, and person. VITALS: Blood pressure 106/62, pulse 95, temperature 36.4 C (97.5 F), height 160 cm (5' 3 ), weight 63 kg (139 lb), SpO2 97 %. Body mass index is 24.62 kg/m . Head: Normal cephalic, atraumatic Eyes: pupils are equally round, sclera are clear/anicteric Neck is supple with no tracheal deviation Respiratory: Normal respiratory excursion and pattern. Abdominal exam: benign Extremities: no clubbing, cyanosis or edema. Neuro: non focal Psych: normal mood Assessment IMPRESSION: abnormal uptake on PET of colon PLAN: I have discussed the above with the patient. I have offered colonoscopy, possible biopsies I have explained the procedure to the patient. I have counseled the patient as to the risks of the procedure, including but not limited to: infection, bleeding, injury to any intrabdominal organs such as liver/spleen, perforation of the GI tract, inability to complete the procedure, complications of anesthesia, etc. - the patient understands. The patient was offered a surgery/procedure at a [facility] facility. The provider and patient have discussed in detail the risk of exposure to and/or potential harm posed by the COVID-19 virus with having a surgery/procedure at this time versus the risk of delaying the surgery/procedure. It is not possible to know either the risk of delaying the surgery or procedure or chance of getting an infection with perfect accuracy, but a joint decision was made between the patient and the provider to proceed at this time with the scheduled surgery/procedure. The patient wishes to proceed. I have answered all questions to the patient s satisfaction and the patient has no further questions. Diagnoses: (R94.8) Abnormal PET scan of colon (C34.90, C79.31) NSCLC metastatic to brain (HCC) I have confirmed and edited as necessary, the PFSH and ROS obtained by others. Consultation requested by Dr. Mario Cardona for an opinion regarding patient's abnormal uptake on PET of colon. My final recommendations will be communicated back to the requesting physician by way of shared Medical record or letter to requesting physician via US mail. Return to Clinic: The patient will be scheduled for colonoscopy at [facility]. Medical Decision Making: Problems: Moderate: New problem with uncertain prognosis Risk: Low: Low risk from testing/treatment Medical Decision Making Level: 3 - Low Cleo Paul MD UPDATED HISTORY AND PHYSICAL EXAMINATION SERVICE DATE: 10/02/2022 SERVICE TIME: 11:25 AM PHYSICAL EXAM MUST BE COMPLETED ON ADMISSION The History and Physical (completed in the past 30 days) has been reviewed and the patient has been examined. The contents accurately reflect the patient's condition with the following additions or revisions since the H&P was completed. Examination indicates no changes. This H&P can be found in the attached. SIGNATURE: Artie Bonds III, MD PATIENT NAME: Jenise Bullock DATE: October 02, 2022 TIME: 11:25 AM documented in this encounter [facility] 09-17-2022 Note HNO ID: [id number] Author: Mario Cardona, DO Service: ? Author Type: Physician Type: Progress Notes Filed: 09/17/2022 12:43 PM Note Text: Diagnosis: 1) Stage IV NSCLC. HPI: The patient is a 77 yo female who was diagnosed with NSCLC. She was initially found to have a lung mass when undergoing work up for cough and acute left sided flank pain. CXR revealed a left lung mass and subsequent CT chest revealed left lung mass on 10/21/13. She was then referred to [facility] and underwent diagnostic bronchoscopy with transbronchial FNA that were completed on 11/04/13. Found to have an adenocarcinoma at 11L and the LLL mass. It was EGFR mutation negative and ALK translocation negative. Patient was then admitted to the hospital on 11/08/13 with complaints of acute onset hemiparesis with left-sided weakness of the arm and leg. MRI brain on 11/08/13 revealed a solitary right cystic/necrotic peripherally enhancing mass measuring 2.4 cm. She subsequently underwent a right-sided craniotomy and resection of brain tumor on 11/09/13. Then received SRS. Underwent further evaluation with mediastinal lymph node evaluation--negative. She underwent EGD and colonoscopy on 11/24/2018. On the EGD portion of the exam, she was noted to have normal appearing mucosa of the esophagus, stomach as well as the first and second portions of the duodenum. On colonoscopy a 3-6 mm polyp was identified in the cecum and removed with cold biopsy forceps. There were nonbleeding external and internal hemorrhoids noted. Hemorrhoid banding was performed. Pathology demonstrated the polyp to have active inflammation consistent with an inflammatory polyp. Previous therapy: 1) Right-sided craniotomy and resection of brain tumor on 11/09/13 followed by [facility]. 2) Carboplatin/Alimta x5 cycles. 3) Completed radiation to left lung 08/30/2014. Received 6600 cGy in 33 fractions. 4) Maintenance Alimta x16 cycles. PD. 5) Nivolumab since September 2015 in complete remission. Held 07/2022. Current therapy: 1) Nivolumab since September 2015 in complete remission. Presents for ongoing management. Interim history: Had PET. Tapered off Zoloft. Has had intermittent sensory neuropathy Was started on Zoloft. Palpitations controlled with metoprolol. Anxious over recent diagnosis meningioma. No chronic cough. No dyspnea with exertion. No chest pain. PMH, medications and allergies as below personally reviewed by me today. Any changes documented in appropriate section. ROS: Constitutional: Denies episodes of fever and night sweats. Neuro: See above. HEENT: No recent change in voice or hearing. RESP: See above. CVS: No PND or orthopnea. No lower extremity swelling/edema. GI: Denies dysgeusia. Denies symptoms of stomatitis. Denies dysphagia and odynophagia. Denies reflux and abdominal pain. : Denies dysuria or gross hematuria. No symptoms of bladder outlet obstruction. Endo: Denies hot flashes. Denies polyuria and polydipsia. Denies heat and cold intolerance. Derm: Denies jaundice and diffuse pruritis. Heme: Denies unusual bleeding and unexplained bruising. Psych: Normal mood. PHYSICAL EXAM: VITALS: Blood pressure 107/59, pulse 81, temperature 37 ?C (98.6 ?F), temperature source Temporal, weight 64.6 kg (142 lb 8 oz), SpO2 95 %. Well-appearing and in no acute distress. The sclera are anicteric bilaterally. No ptosis of left eye. Ocular motor test does not reveal any lag of the left eye. NECK: Supple. LYMPHATIC: There is no palpable cervical or supraclavicular adenopathy. RESPIRATORY: Inspiratory breath sounds are of diminished intensity in all tse. No longer can appreciate inspiratory squeak/rub at the left base. No rales, wheezes or rhonchi. CARDIOVASCULAR: Rhythm is regular. ABDOMEN: The abdomen is nondistended. No organomegaly. No tenderness. Extremities: No swelling or edema. SKIN: No jaundice or rash. NEUROLOGIC: No focal motor weakness of the extremities. Patellar and Achilles DTRs are normal. Vibratory sense intact. LABS: Component Latest Ref Rng AND Units 07/21/2022 09/17/2022 WBC 3.70 - 11.00 k/uL 5.66 5.51 RBC 3.90 - 5.20 m/uL 4.89 4.56 Hemoglobin 11.5 - 15.5 g/dL 12.5 11.9 Hematocrit 36.0 - 46.0 % 38.9 37.4 MCV 80.0 - 100.0 fL 79.6 (L) 82.0 MCH 26.0 - 34.0 pg 25.6 (L) 26.1 MCHC 30.5 - 36.0 g/dL 32.1 31.8 RDW-CV 11.5 - 15.0 % 13.8 14.8 Platelet Count 150 - 400 k/uL 361 278 MPV 9.0 - 12.7 fL 10.2 10.8 Neut% % 80.5 75.8 Abs Neut (ANC) 1.45 - 7.50 k/uL 4.56 4.18 Lymph% % 9.9 13.6 Abs Lymph 1.00 - 4.00 k/uL 0.56 (L) 0.75 (L) [facility]% % 6.[address] [facility] <0.87 k/uL 0.39 0.39 Eosin% % 1.6 2.2 Abs Eosin <0.46 k/uL 0.09 0.12 Baso% % 0.9 1.1 Abs Baso <0.11 k/uL 0.05 0.06 Immature Gran % % 0.2 0.2 IMMATURE GRANS (ABS) <0.10 k/uL <0.03 <0.03 NRBC /100 WBC 0.0 0.0 Absolute nRBC <0.01 k/uL <0.01 <0.01 DTYPE Auto Auto Protein, Total 6.3 - 8.0 g/dL 6.5 Albumin 3.9 - 4.9 g/dL 4.0 (more content not included)... [facility] 09-17-2022 History of Present illness Narrative Diagnosis: 1) Stage IV NSCLC. HPI: The patient is a 77 yo female who was diagnosed with NSCLC. She was initially found to have a lung mass when undergoing work up for cough and acute left sided flank pain. CXR revealed a left lung mass and subsequent CT chest revealed left lung mass on 10/21/13. [facility] and underwent diagnostic bronchoscopy with transbronchial FNA that were completed on 11/04/13. Found to have an adenocarcinoma at 11L and the LLL mass. It was EGFR mutation negative and ALK translocation negative. Patient was then admitted to the hospital on 11/08/13 with complaints of acute onset hemiparesis with left-sided weakness of the arm and leg. MRI brain on 11/08/13 revealed a solitary right cystic/necrotic peripherally enhancing mass measuring 2.4 cm. She subsequently underwent a right-sided craniotomy and resection of brain tumor on 11/09/13. Then received SRS. Underwent further evaluation with mediastinal lymph node evaluation--negative. She underwent EGD and colonoscopy on 11/24/2018. On the EGD portion of the exam, she was noted to have normal appearing mucosa of the esophagus, stomach as well as the first and second portions of the duodenum. On colonoscopy a 3-6 mm polyp was identified in the cecum and removed with cold biopsy forceps. There were nonbleeding external and internal hemorrhoids noted. Hemorrhoid banding was performed. Pathology demonstrated the polyp to have active inflammation consistent with an inflammatory polyp. Previous therapy: 1) Right-sided craniotomy and resection of brain tumor on 11/09/13 followed by [facility]. 2) Carboplatin/Alimta x5 cycles. 3) Completed radiation to left lung 08/30/2014. Received 6600 cGy in 33 fractions. 4) Maintenance Alimta x16 cycles. PD. 5) Nivolumab since September 2015 in complete remission. Held 07/2022. Current therapy: 1) Nivolumab since September 2015 in complete remission. Presents for ongoing management. Interim history: Had PET. Tapered off Zoloft. Has had intermittent sensory neuropathy Was started on Zoloft. Palpitations controlled with metoprolol. Anxious over recent diagnosis meningioma. No chronic cough. No dyspnea with exertion. No chest pain. PMH, medications and allergies as below personally reviewed by me today. Any changes documented in appropriate section. ROS: Constitutional: Denies episodes of fever and night sweats. Neuro: See above. HEENT: No recent change in voice or hearing. RESP: See above. CVS: No PND or orthopnea. No lower extremity swelling/edema. GI: Denies dysgeusia. Denies symptoms of stomatitis. Denies dysphagia and odynophagia. Denies reflux and abdominal pain. : Denies dysuria or gross hematuria. No symptoms of bladder outlet obstruction. Endo: Denies hot flashes. Denies polyuria and polydipsia. Denies heat and cold intolerance. Derm: Denies jaundice and diffuse pruritis. Heme: Denies unusual bleeding and unexplained bruising. Psych: Normal mood. PHYSICAL EXAM: VITALS: Blood pressure 107/59, pulse 81, temperature 37 C (98.6 F), temperature source Temporal, weight 64.6 kg (142 lb 8 oz), SpO2 95 %. Well-appearing and in no acute distress. The sclera are anicteric bilaterally. No ptosis of left eye. Ocular motor test does not reveal any lag of the left eye. NECK: Supple. LYMPHATIC: There is no palpable cervical or supraclavicular adenopathy. RESPIRATORY: Inspiratory breath sounds are of diminished intensity in all tse. No longer can appreciate inspiratory squeak/rub at the left base. No rales, wheezes or rhonchi. CARDIOVASCULAR: Rhythm is regular. ABDOMEN: The abdomen is nondistended. No organomegaly. No tenderness. Extremities: No swelling or edema. SKIN: No jaundice or rash. NEUROLOGIC: No focal motor weakness of the extremities. Patellar and Achilles DTRs are normal. Vibratory sense intact. LABS: Component Latest Ref Rng & Units 07/21/2022 09/17/2022 WBC 3.70 - 11.00 k/uL 5.66 5.51 RBC 3.90 - 5.20 m/uL 4.89 4.56 Hemoglobin 11.5 - 15.5 g/dL 12.5 11.9 Hematocrit 36.0 - 46.0 % 38.9 37.4 MCV 80.0 - 100.0 fL 79.6 (L) 82.0 MCH 26.0 - 34.0 pg 25.6 (L) 26.1 MCHC 30.5 - 36.0 g/dL 32.1 31.8 RDW-CV 11.5 - 15.0 % 13.8 14.8 Platelet Count 150 - 400 k/uL 361 278 MPV 9.0 - 12.7 fL 10.2 10.8 Neut% % 80.5 75.8 Abs Neut (ANC) 1.45 - 7.50 k/uL 4.56 4.18 Lymph% % 9.9 13.6 Abs Lymph 1.00 - 4.00 k/uL 0.56 (L) 0.75 (L) [facility]% % 6.[address] <0.87 k/uL 0.39 0.39 Eosin% % 1.6 2.2 Abs Eosin <0.46 k/uL 0.09 0.12 Baso% % 0.9 1.1 Abs Baso <0.11 k/uL 0.05 0.06 Immature Gran % % 0.2 0.2 IMMATURE GRANS (ABS) <0.10 k/uL <0.03 <0.03 NRBC /100 WBC 0.0 0.0 Absolute nRBC <0.01 k/uL <0.01 <0.01 DTYPE Auto Auto Protein, Total 6.3 - 8.0 g/dL 6.5 Albumin 3.9 - 4.9 g/dL 4.0 Calcium 8.5 - 10.2 mg/dL 8.9 Bilirubin, Total 0.2 - 1.3 mg/dL 0.3 Alkaline Phosphatase 34 - 123 U/L 102 AST 13 - 35 U/L 16 ALT 7 - 38 U/L 10 Glucose 74 - 99 mg/dL 100 (H) BUN 7 - 21 mg/dL 12 Creatinine 0.58 - 0.96 mg/dL 0.78 Sodium 136 - 144 mmol/L 139 Potassium 3.7 - 5.1 mmol/L 3.6 (L) Chloride 97 - 105 mmol/L 103 CO2 22 - 30 mmol/L 26 Anion Gap 9 - 18 mmol/L 10 eGFR >=60 mL/min/1.73m 78 TSH 0.270 - 4.200 mIU/L 0.849 Cortisol 4.8 - 19.5 ug/dL 18.9 ASSESSMENT/PLAN: (162.9) Adenocarcinoma of lung, stage 4, left (HCC) (primary encounter diagnosis) Comment: -KPS is 100%. -Continues to tolerate therapy well. -Recurrence of diplopia which is now appreciated all the time. Previously just at night when watching TV. -Paraneoplastic antibody panel negative. -No evidence of MG. -She remains asymptomatic from her metastatic non-small cell lung cancer. No respiratory symptoms. -We again discussed duration of therapy. She underwent resection followed by gamma knife to isolated brain metastasis. She then received chemotherapy and local therapy i.e. radiation to primary tumor and had extended pemetrexed. Had been on nivolumab for nearly 7 years with no evidence of new disease or progression. -Reviewed PET. Discussed with interventional bronchoscopist. Recommend repeat PET 6 months. Plan: -OV following PET in November. 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 Then received SRS. -Neurologically stable Plan: -Repeat MRI brain per neurosurgery. (D50.0) Iron deficiency anemia due to chronic blood loss Assessment: -Has had previous colonoscopies. -Tolerating oral iron well. Plan: -Monitor CBC and iron studies periodically. (G62.9) Sensory neuropathy Assessment: -New intermittent symmetric symptom of legs/feet. Plan: -Check B12, folate and serum monoclonal protein. -Referral to neurology. Portions of this documentation were copied and pasted from previous office visit notes in order to provide a cohesive continuity of the history. The note has been reviewed and edited and updated as necessary. I spent a total of 25 minutes on the date of the service which included preparing to see the patient, [id number] patient care, completing clinical documentation, obtaining and/or reviewing separately obtained history, performing a medically appropriate examination, counseling and educating the patient/family/caregiver, ordering medications, tests, or procedures, and communicating results to the patient/family/caregiver. Mario Cardona, DO Cc: MD Ashley Isaac MD documented in this encounter [facility] 08-19-2022 History of Present illness Narrative HISTORY AND PHYSICAL Jenise Bullock 1945 REFERRING PHYSICIAN: Mario Cardona DO CHIEF COMPLAINT: Consult (colonoscopy) HPI: The patient is a 77 year old female referred for endoscopy. The patient denies blood in stools, denies abdominal pain, and denies changes in bowel habits. Patient does note intermittent chronic constipation. The patient notes no colon cancer in immediate family. The patient has had previous colonoscopy in 2019 with inflammatory polyp found. Patient has known lung cancer with metastatic disease to brain. She had a recent PET scan which revealed increased focal areas of uptake in the descending/sigmoid colon and anorectal area. 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) Snoring PAST SURGICAL HISTORY Procedure Laterality Date BRONCHOSCOPY 11/04/13 COLONOSCOPY FLX DX W/COLLJ SPEC WHEN PFRMD 11/24/2018 Colonoscopy ESOPHAGOGASTRODUODENOSCOPY TRANSORAL DIAGNOSTIC 11/24/2018 EGD EXPLORE CRANIOTOMY 11/09/13 right sided resection of brain tumor INSJ TUNNELED CTR VAD W/SUBQ PORT AGE 5 YR/> Right 08/13/2016 subclavian PAST SURGICAL HISTORY OF 1993 right axillary cyst removed PAST SURGICAL HISTORY OF 1962 lymph node removed from back of neck while in high school SALPINGO-OOPHORECTOMY COMPL/PRTL UNI/BI SPX 1982 TONSILLECTOMY HX Current Outpatient Medications Medication Sig LORazepam (ATIVAN) 1 mg tablet Take 1 tablet by mouth every 8 hours as needed for up to 14 days. sertraline (ZOLOFT) 50 mg tablet Take 1 tablet by mouth once daily. ferrous sulfate 325 mg (65 mg iron) EC tablet Take 65 mg by mouth every other day. multivitamin tablet Take 1 tablet by mouth once daily. acetaminophen (TYLENOL) 500 mg tablet Take 1,000 mg by mouth every 8 hours as needed. diphenhydrAMINE (BENADRYL) 25 mg tablet Take 25 mg by mouth every 8 hours as needed. Omeprazole Magnesium (PRILOSEC OTC) 20 mg tablet Take 2 tablets by mouth once daily. (Patient taking differently: Take 40 mg by mouth once daily. 1 tablet daily) ibuprofen (MOTRIN) 200 mg tablet Take 200 mg by mouth every 6 hours as needed. peg 3350-Electrolytes (GOLYTELY) 236-22.74-6.74 -5.86 gram suspension Take 4,000 mL by mouth one time only for 1 dose. Refer to printed prep instructions from your provider. metoprolol tartrate, short acting, (LOPRESSOR) 25 mg tablet Take 0.5 tablets by mouth twice daily. And an extra 1/2 tab if palpitations are worse ALLERGIES: Penicillins PERSONAL HISTORY: Social History Tobacco Use Smoking status: Former Packs/day: 1.00 Years: 48.00 Pack years: 48.00 Types: Cigarettes Start date: 11/01/1964 Quit date: 10/24/2013 Years since quittin.8 Smokeless tobacco: Never Tobacco comments: Pt smoked one pack a week on & off for 48 years, had quit four times in the past. Vaping Use Vaping Use: Never used Substance Use Topics Alcohol use: Yes Alcohol/week: 2.5 standard drinks Types: 1 Glasses of Wine (5oz) per week Comment: Occasionally Drug use: No FAMILY HISTORY Problem Relation Age of Onset Cancer Mother unk other (parkinson's disease) Father other (myasthenia gravis) Maternal Grandmother Cancer Maternal Grandfather throat Diabetes Paternal Grandmother Cancer Paternal Grandfather colo-rectal Cancer Brother bladder Cancer Paternal Uncle leukemia Cancer Paternal Aunt lung The review of systems data was entered by the nurse and reviewed by sc Nursing Notes: Evelia Torres LPN 08/19/2022 10:33 AM Signed REVIEW OF SYSTEMS: General: The patient denies fatigue, denies weight loss, denies weight gain, denies feeling hot, and denies feelings of cold. Eyes: The patient denies glaucoma, denies eye injury/surgery, wears glasses or contacts. Ear/Nose/Throat: The patient notes allergies, denies hayfever, denies ear infections, and denies bloody noses. Cardiovascular: The patient denies chest pain, denies heart disease, denies high blood pressure,denies cardiac stent, denies prior heart attack, denies irregular heart beat, denies high cholesterol, denies poor circulation, denies heart failure, other cardiac issues, denies claudication, denies cold feet, denies peripheral arterial stent. Respiratory: The patient denies tuberculosis, denies pneumonia, denies frequent cough, denies pulmonary embolism, denies shortness of breath, and denies coughing up blood. Gastrointestinal: The patient denies difficulty swallowing, notes acid reflux, denies ulcers, denies vomiting, denies jaundice/hepatitis, denies gallbladder problems, denies black or tarry stools, notes hemorrhoids, denies bleeding from rectum, denies diverticulitis, denies constipation, denies diarrhea, denies loss of stool control, and denies hernias. Kidney/Bladder: The patient notes kidney stones, notes urine infections, and denies bloody urine. Skin: The patient denies a history of skin cancer, denies bleeding/changing moles, and denies a history of skin rash. Neurologic: The patient denies a history of epilepsy/convulsions, denies headaches, denies head/spinal injuries, and denies stroke/TIA. Psychiatric: The patient denies psychiatric medications, denies depression, and denies voices, denies substance abuse. Endocrine: The patient denies thyroid disorders, denies diabetes, and denies hormonal problems. Hematologic: The patient denies a history of bruising, denies bleeding, and notes anemia, denies blood clots. Infections: The patient denies a history of measles and mumps, denies rheumatic fever, and denies sexually transmitted diseases. Musculoskeletal: The patient denies back pain/injury, denies back problems, denies sciatica, denies knee/foot trouble, notes arthritis, or denies gout. When was patient's last Mammogram screening? unknown Last Colonoscopy: 2019 Evelia Torres LPN PHYSICAL EXAMINATION: General: The patient is 77 year old female, well nourished, well hydrated in no acute distress. The patient is oriented to time, place, and person. VITALS: Blood pressure 106/62, pulse 95, temperature 36.4 C (97.5 F), height 160 cm (5' 3 ), weight 63 kg (139 lb), SpO2 97 %. Body mass index is 24.62 kg/m . Head: Normal cephalic, atraumatic Eyes: pupils are equally round, sclera are clear/anicteric Neck is supple with no tracheal deviation Respiratory: Normal respiratory excursion and pattern. Abdominal exam: benign Extremities: no clubbing, cyanosis or edema. Neuro: non focal Psych: normal mood Assessment IMPRESSION: abnormal uptake on PET of colon PLAN: I have discussed the above with the patient. I have offered colonoscopy, possible biopsies I have explained the procedure to the patient. I have counseled the patient as to the risks of the procedure, including but not limited to: infection, bleeding, injury to any intrabdominal organs such as liver/spleen, perforation of the GI tract, inability to complete the procedure, complications of anesthesia, etc. - the patient understands. The patient was offered a surgery/procedure at a [facility] facility. The provider and patient have discussed in detail the risk of exposure to and/or potential harm posed by the COVID-19 virus with having a surgery/procedure at this time versus the risk of delaying the surgery/procedure. It is not possible to know either the risk of delaying the surgery or procedure or chance of getting an infection with perfect accuracy, but a joint decision was made between the patient and the provider to proceed at this time with the scheduled surgery/procedure. The patient wishes to proceed. I have answered all questions to the patient s satisfaction and the patient has no further questions. Diagnoses: (R94.8) Abnormal PET scan of colon (C34.90, C79.31) NSCLC metastatic to brain (HCC) I have confirmed and edited as necessary, the PFSH and ROS obtained by others. Consultation requested by Dr. Mario Cardona for an opinion regarding patient's abnormal uptake on PET of colon. My final recommendations will be communicated back to the requesting physician by way of shared Medical record or letter to requesting physician via US mail. Return to Clinic: The patient will be scheduled for colonoscopy at [facility]. Medical Decision Making: Problems: Moderate: New problem with uncertain prognosis Risk: Low: Low risk from testing/treatment Medical Decision Making Level: 3 - Low Cleo Paul MD documented in this encounter [facility] 08-19-2022 Instructions M Sean Taylor PA-C - 08/19/2022 2:39 PM EST Wean off sertraline: 50mg alternating with 25mg x 1 week, then 25mg daily x 1 week then 25mg every other x 1 week and then stop. Metoprolol: Patient drug information Access [employer] Online for additional drug information, tools, and databases. Copyright [employer]. All rights reserved. (For additional information see Metoprolol: Drug information and see Metoprolol: Pediatric drug information ) Brand Names: US Kapspargo Sprinkle; Lopressor; Toprol XL Brand Names: Mary FJ-Gwfonlscac-E; APO-Metoprolol; APO-Metoprolol SR; APO-Metoprolol Type L; DOM-Metoprolol; YFA-Wpirckmuqr-X; JQEA-Aajaiutuzd-N; Lopresor SR; Lopresor [DSC]; Metoprolol-100; Metoprolol-25; Metoprolol-50; Metoprolol-L; OHE-Gerrrqzsmm-Q; DBY-Gflzdudaye-H; BNIV-Qmxzyjsuzj-D; SANDOZ Metoprolol (Type L) [DSC]; Sandoz Metoprolol SR; TEVA-Metoprolol Warning Do not stop taking this drug all of a sudden. If you do, chest pain that is worse and in some cases heart attack may occur. The risk may be greater if you have certain types of heart disease. To avoid side effects, you will want to slowly stop this drug as ordered by your doctor. Call your doctor right away if you have new or worse chest pain or if other heart problems occur. What is this drug used for? It is used to treat high blood pressure. It is used to treat chest pain or pressure. It is used to treat heart failure (weak heart). It is used after a heart attack to help prevent future heart attacks and lengthen life. It may be given to you for other reasons. Talk with the doctor. What do I need to tell my doctor BEFORE I take this drug? If you are allergic to this drug; any part of this drug; or any other drugs, foods, or substances. Tell your doctor about the allergy and what signs you had. If you have any of these health problems: Certain types of abnormal heartbeats called heart block or sick-sinus syndrome, heart failure (weak heart), low blood pressure, poor blood flow to the arms or legs, shock caused by heart problems, or a slow heartbeat. If you have any of these health problems: Asthma or other breathing problems like COPD (chronic obstructive pulmonary disease). This is not a list of all drugs or health problems that interact with this drug. Tell your doctor and pharmacist about all of your drugs (prescription or OTC, natural products, vitamins) and health problems. You must check to make sure that it is safe for you to take this drug with all of your drugs and health problems. Do not start, stop, or change the dose of any drug without checking with your doctor. What are some things I need to know or do while I take this drug? Tell all of your health care providers that you take this drug. This includes your doctors, nurses, pharmacists, and dentists. Avoid driving and doing other tasks or actions that call for you to be alert until you see how this drug affects you. To lower the chance of feeling dizzy or passing out, rise slowly if you have been sitting or lying down. Be careful going up and down stairs. Check blood pressure and heart rate as the doctor has told you. Have blood work checked as you have been told by the doctor. Talk with the doctor. This drug may affect certain lab tests. Tell all of your health care providers and lab workers that you take this drug. This drug may hide the signs of low blood sugar. Talk with the doctor. If you have high blood sugar (diabetes), you will need to watch your blood sugar closely. If you are taking this drug and have high blood pressure, talk with your doctor before using OTC products that may raise blood pressure. These include cough or cold drugs, diet pills, stimulants, non-steroidal anti-inflammatory drugs (NSAIDs) like ibuprofen or naproxen, and some natural products or aids. You may need to avoid drinking alcohol with some products. Talk with your doctor or pharmacist to see if you need to avoid drinking alcohol with this drug. This drug may make it harder to tell if you have signs of an overactive thyroid like fast heartbeat. If you have an overactive thyroid and stop taking this drug all of a sudden, it may get worse and could be life-threatening. Talk with your doctor. If you have had a very bad allergic reaction, talk with your doctor. You may have a chance of an even worse reaction if you come into contact with what caused your allergy. If you use epinephrine to treat very bad allergic reactions, talk with your doctor. Epinephrine may not work as well while you are taking this drug. Tell your doctor if you are , plan on getting , or are breast-feeding. You will need to talk about the benefits and risks to you and the baby. What are some side effects that I need to call my doctor about right away? WARNING/CAUTION: Even though it may be rare, some people may have very bad and sometimes deadly side effects when taking a drug. Tell your doctor or get medical help right away if you have any of the following signs or symptoms that may be related to a very bad side effect: Signs of an allergic reaction, like rash; hives; itching; red, swollen, blistered, or peeling skin with or without fever; wheezing; tightness in the chest or throat; trouble breathing, swallowing, or talking; unusual hoarseness; or swelling of the mouth, face, lips, tongue, or throat. Low mood (depression). Very bad dizziness or passing out. Chest pain that is new or worse. An abnormal heartbeat that is new or worse. Slow heartbeat. Shortness of breath, a big weight gain, or swelling in the arms or legs. What are some other side effects of this drug? All drugs may cause side effects. However, many people have no side effects or only have minor side effects. Call your doctor or get medical help if any of these side effects or any other side effects bother you or do not go away: Feeling dizzy, tired, or weak. Diarrhea, upset stomach, or throwing up. These are not all of the side effects that may occur. If you have questions about side effects, call your doctor. Call your doctor for medical advice about side effects. You may report side effects to your national health agency. How is this drug best taken? Use this drug as ordered by your doctor. Read all information given to you. Follow all instructions closely. Regular-release tablets: Take with or right after a meal. Swallow whole with a full glass of water. Keep taking this drug as you have been told by your doctor or other health care provider, even if you feel well. Extended-release tablets: Take with or right after a meal. Swallow whole. Do not chew or crush. You may break the tablet in half. Do not chew or crush. Keep taking this drug as you have been told by your doctor or other health care provider, even if you feel well. Extended-release capsules: Take with or without food. Swallow whole. Do not chew or crush. If you cannot swallow this drug whole, you may sprinkle the contents on applesauce, pudding, yogurt, or other soft food. If you do this, swallow the mixture within 60 minutes of mixing without chewing. Do not store for future use. Keep taking this drug as you have been told by your doctor or other health care provider, even if you feel well. Those who have feeding tubes may use this drug. Use as you have been told. Flush the feeding tube after this drug is given. Injection: It is given as a shot into a vein. What do I do if I miss a dose? All oral products: Skip the missed dose and go back to your normal time. Do not take 2 doses at the same time or extra doses. Injection: Call your doctor to find out what to do. How do I store and/or throw out this drug? All oral products: Store at room temperature in a dry place. Do not store in a bathroom. Protect from heat. Injection: If you need to store this drug at home, talk with your doctor, nurse, or pharmacist about how to store it. All products: Keep all drugs in a safe place. Keep all drugs out of the reach of children and pets. Throw away unused or drugs. Do not flush down a toilet or pour down a drain unless you are told to do so. Check with your pharmacist if you have questions about the best way to throw out drugs. There may be drug take-back programs in your area. General drug facts If your symptoms or health problems do not get better or if they become worse, call your doctor. Do not share your drugs with others and do not take anyone else's drugs. Some drugs may have another patient information leaflet. If you have any questions about this drug, please talk with your doctor, nurse, pharmacist, or other health care provider. If you think there has been an overdose, call your poison control center or get medical care right away. Be ready to tell or show what was taken, how much, and when it happened. Use of UpToDate is subject to the Subscription and License Agreement. Topic 29815 Version 228.0 documented in this encounter [facility] 08-19-2022 History of Present illness Narrative 77 year old female with c/o 4 week follow up: increase sertraline dosing. Still having a lot of palpitations. Yesterday was bad with palpitations, took Ativan 1/2 tab and it seemed to help. No real benefit from sertraline other than crying a little less. Had Pet scan last week. Has to have colonoscopy related t results. 08/12/2022 PET IMPRESSION: 1. NECK: * No FDG avid neoplastic process. 2. CHEST: * Mildly FDG avid left lower lobe consolidation, presumably related to postradiation change. No new discrete FDG avid nodules/mass identified. * No FDG avid lymphadenopathy. 3. ABDOMEN/PELVIS: * Nonspecific focal FDG uptake in the descending colon, sigmoid colon and anorectal region. Correlation with colonoscopy/direct visualization as clinically warranted. 4. EXTREMITIES/SKELETON: * No suspicious FDG avid osseous lesion. Dr. Cardona stopped treatment after nine years. had to have a nuclear stress and PFT for surgery on ulcer heel. 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) Snoring PAST SURGICAL HISTORY Procedure Laterality Date BRONCHOSCOPY 11/04/13 COLONOSCOPY FLX DX W/COLLJ SPEC WHEN PFRMD 11/24/2018 Colonoscopy ESOPHAGOGASTRODUODENOSCOPY TRANSORAL DIAGNOSTIC 11/24/2018 EGD EXPLORE CRANIOTOMY 11/09/13 right sided resection of brain tumor INSJ TUNNELED CTR VAD W/SUBQ PORT AGE 5 YR/> Right 08/13/2016 subclavian PAST SURGICAL HISTORY OF 1993 right axillary cyst removed PAST SURGICAL HISTORY OF 1962 lymph node removed from back of neck while in high school SALPINGO-OOPHORECTOMY COMPL/PRTL UNI/BI SPX 1982 TONSILLECTOMY HX Social History Tobacco Use Smoking status: Former Packs/day: 1.00 Years: 48.00 Pack years: 48.00 Types: Cigarettes Start date: 11/01/1964 Quit date: 10/24/2013 Years since quittin.8 Smokeless tobacco: Never Tobacco comments: Pt smoked one pack a week on & off for 48 years, had quit four times in the past. 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) Left Leg Weakness Brain Metastasis (Hcc) S/P Craniotomy Special Screening for Malignant Neoplasms, Colon Internal Hemorrhoids Without Mention of Complication Paresthesia Iron Deficiency Anemia Primary Malignant Neoplasm of Left Lung (Hcc) Anxiety Neurosis Gerd (Gastroesophageal Reflux Disease) Iron Malabsorption Gardner's Palsy Chronic Left-Sided Low Back Pain With Left-Sided Sciatica Left Sided Sciatica Benign Neoplasm of Meninges (Hcc) Current Outpatient Medications Medication Sig Dispense Refill LORazepam (ATIVAN) 1 mg tablet Take 1 tablet by mouth every 8 hours as needed for up to 14 days. 30 tablet 0 sertraline (ZOLOFT) 50 mg tablet Take 1 tablet by mouth once daily. 30 tablet 2 ferrous sulfate 325 mg (65 mg iron) EC tablet Take 65 mg by mouth every other day. multivitamin tablet Take 1 tablet by mouth once daily. acetaminophen (TYLENOL) 500 mg tablet Take 1,000 mg by mouth every 8 hours as needed. diphenhydrAMINE (BENADRYL) 25 mg tablet Take 25 mg by mouth every 8 hours as needed. Omeprazole Magnesium (PRILOSEC OTC) 20 mg tablet Take 2 tablets by mouth once daily. (Patient taking differently: Take 40 mg by mouth once daily. 1 tablet daily) ibuprofen (MOTRIN) 200 mg tablet Take 200 mg by mouth every 6 hours as needed. No current facility-administered medications for this visit. DTAP,TDAP,TD(1 - Tdap) Never done SHINGRIX VACCINE(1 of 2) Never done BONE DENSITY Never done ADVANCE DIRECTIVE DISCUSSION due on 06/22/2022 DEPRESSION ASSESSMENT due on 06/22/2022 EXAM: BP 110/68 Pulse 80 Resp 16 Ht 160 cm (5' 2.99 ) Wt 63.5 kg (140 lb) BMI 24.81 kg/m Pleasant well appearing adult woman in no acute distress. Alert and oriented all spheres. Normal affect and cognition. Speech normal. No deficits to learning or comprehension. Skin warm, dry, pink to lips and nailbeds. Normal turgor. Respirations regular and unlabored. Chest is normal shape. Lungs are clear to all tse with good air exchange through out. HRRR without murmur or gallop. No lifts, heaves, or rubs. Extrem: no clubbing or cyanosis. Edema: none. Extremities are warm and pink with prompt capillary refill. ASSESSMENT/PLAN: 1. Palpitations - ICD9: 785.1, ICD10: R00.2 (primary diagnosis) 2. Stress reaction - ICD9: 308.9, ICD10: F43.0 Wean of sertraline over 3 weeks. Start metoprolol 25mg 1/2 tab twice a day and report any weakness or change in status. Educated on new medication administration, warnings and cautions, common side effects, anticipated duration or therapy, and instructions on cessation management to avoid risks if stops medication. Patient choice was discussed in shared decision making. - METOPROLOL TARTRATE 25 MG TABLET F/u in Inna Taylor PA-C documented in this encounter [facility] 08-19-2022 Instructions Cleo Paul MD - 08/19/2022 10:45 AM EST Images from the original note were not included. Bowel Preparation Instructions for: Golytely, Nulytely, Trilyte or Colyte (polyethylene glycol 3350 and electrolytes) IF YOU DO NOT FOLLOW THESE DIRECTIONS, YOUR COLONOSCOPY WILL BE CANCELLED. Carias Instructions: Your bowel must be empty so that your doctor can clearly view your colon. Follow all of the instructions in this handout EXACTLY as they are written. Do NOT eat any solid food the ENTIRE day before your colonoscopy. Drink only clear liquids. Buy your bowel preparation at least 5 days before your colonoscopy. TRANSPORTATION on the Day of Your Exam A responsible person MUST be present with you at Check In prior to your colonoscopy and REMAIN in the endoscopy area until you are discharged. You are NOT ALLOWED to drive, take a taxi or bus, or leave the Endoscopy Center ALONE. If you do not have a responsible entry driver operator (family member or friend) with you to take you home, your exam cannot be done with sedation and will be cancelled. Please bring a list of all of your current medications, including any Over-the Counter medications with you. Medications If you take insulin, diabetic medications or blood thinners such as Coumadin (warfarin), Plavix (clopidogrel), Ticlid (ticlopidine hydrochloride), Agrylin (anagrelide), Xarelto (Rivaroxaban), Pradaxa (Dabigatran), Eliquis (Apixaban), and Effient (Prasugrel). You MUST call the doctors who orders those medicines for instructions on altering the dosage before your colonoscopy. All other medications should be taken the day of the exam with a sip of water including ASPIRIN. Five (5) Days Before Your Colonoscopy Do NOT take medicines that stop diarrhea - such as Imodium, Kaopectate, or Pepto Bismol. Do NOT take fiber supplements - such as Metamucil, Citrucel, or Perdiem. Do NOT take products that contain iron - such as multi-vitamins (the label lists what is in the products). Do NOT take Vitamin E. Buy the prescription bowel preparation solution at your local pharmacy or drugstore pharmacy. 05/2019 Bowel Preparation Instructions for: Golytely, Nulytely, Trilyte or Colyte (polyethylene glycol 3350 and electrolytes) Three (3) Days Before Your Colonoscopy Do NOT eat high-fiber foods - such as popcorn, beans, seeds (flax, sunflower, quinoa), multigrain bread, nuts, salad/vegetables, or fresh and dried fruit. One (1) Day Before Your Colonoscopy Only drink clear liquids the ENTIRE DAY before your colonoscopy. Do NOT eat any solid foods. Drink at least 8 ounces of clear liquids every hour after waking up. The clear liquids you can drink include: Clear Liquid (NO RED LIQUIDS) DO NOT DRINK Gatorade, Pedialyte or Powerade Clear broth or bouillon Coffee or tea (no milk or non-dairy creamer) Carbonated and non-carbonated soft drinks Mart-Aid or other fruit flavored drinks Strained fruit juices (no pulp) Jell-O, popsicles, hard candy Water Alcohol Milk or non-dairy creamers Noodles or vegetables in soup Juice with pulp Liquid you cannot see through Do not use tobacco/vaping products The bowel preparation solution will be consumed in two parts. Mix the solution the evening before your colonoscopy and refrigerate before drinking. You may add the flavor pack that came with the bowel preparation. Do NOT add ice, sugar or any other flavorings to the solution. Part 1 At 6:00 PM - Evening before your colonoscopy Drink an 8-oz glass of bowel preparation every 10 minutes for a total of 8 glasses. You may continue to drink clear liquids until midnight. Part 2 On the day of your colonoscopy you may drink clear liquids up to (three) 3 hours before your procedure. 4 1/2 hours before your colonoscopy Drink an 8-oz glass of bowel preparation every 10 minutes for a total of 8 glasses. Fifteen (15) minutes later, drink an 8-oz glass of clear liquids every 15 minutes for a total of 2 glasses. You may continue to drink clear liquids up to (three) 3 hours before your exam. 2 05/2019 documented in this encounter [facility] 08-19-2022 Nurse Note REVIEW OF SYSTEMS: General: The patient denies fatigue, denies weight loss, denies weight gain, denies feeling hot, and denies feelings of cold. Eyes: The patient denies glaucoma, denies eye injury/surgery, wears glasses or contacts. Ear/Nose/Throat: The patient notes allergies, denies hayfever, denies ear infections, and denies bloody noses. Cardiovascular: The patient denies chest pain, denies heart disease, denies high blood pressure,denies cardiac stent, denies prior heart attack, denies irregular heart beat, denies high cholesterol, denies poor circulation, denies heart failure, other cardiac issues, denies claudication, denies cold feet, denies peripheral arterial stent. Respiratory: The patient denies tuberculosis, denies pneumonia, denies frequent cough, denies pulmonary embolism, denies shortness of breath, and denies coughing up blood. Gastrointestinal: The patient denies difficulty swallowing, notes acid reflux, denies ulcers, denies vomiting, denies jaundice/hepatitis, denies gallbladder problems, denies black or tarry stools, notes hemorrhoids, denies bleeding from rectum, denies diverticulitis, denies constipation, denies diarrhea, denies loss of stool control, and denies hernias. Kidney/Bladder: The patient notes kidney stones, notes urine infections, and denies bloody urine. Skin: The patient denies a history of skin cancer, denies bleeding/changing moles, and denies a history of skin rash. Neurologic: The patient denies a history of epilepsy/convulsions, denies headaches, denies head/spinal injuries, and denies stroke/TIA. Psychiatric: The patient denies psychiatric medications, denies depression, and denies voices, denies substance abuse. Endocrine: The patient denies thyroid disorders, denies diabetes, and denies hormonal problems. Hematologic: The patient denies a history of bruising, denies bleeding, and notes anemia, denies blood clots. Infections: The patient denies a history of measles and mumps, denies rheumatic fever, and denies sexually transmitted diseases. Musculoskeletal: The patient denies back pain/injury, denies back problems, denies sciatica, denies knee/foot trouble, notes arthritis, or denies gout. When was patient's last Mammogram screening? unknown Last Colonoscopy: 2018 Evelia Torres LPN documented in this encounter [facility] 08-19-2022 Miscellaneous Notes Opdivo treatments cancelled. LM for patient to return call. When she calls, please schedule PET Scan in late October and advise that her Opdivo treatments are cancelled. Once scheduled, please document and close this note. Dr. Cardona - please file PET Order for scheduling. Thank you. Netta Nguyen Per message below: Bronchoscopy would not be of high yield in the amount of activity on PET scan as below that expected for cancer. Therefore, we can put nivolumab on hold. Plan repeat PET scan in about 3 months. She can keep her next scheduled office visit with me with lab work as is. Pt notified and voices understanding. Will keep scheduled f/u ov and labs. Please assist pt in scheduling her PET scan in 3 months, or assist her when she comes in. Giana Torres LPN Can let her know I reviewed her case with the quality facilitator. She had reviewed all of her PET and CT images going back over the years and the area in the left lower lobe has been stable for a long time. She does not think bronchoscopy would be of high yield in the amount of activity on PET scan as below that expected for cancer. Therefore, we can put nivolumab on hold. Plan repeat PET scan in about 3 months. She can keep her next scheduled office visit with me with lab work as is. Mario Cardona DO Spoke with patient and scheduled. Netta Nguyen Patient is aware of all information. PSS- please contact patient to schedule with Dr. Paul. Shoshana Hart LPN Can let her know that the PET scan did not show any obvious sign of cancer. The radiologist interpreted some of the mild activity in the left lower lung as chronic change from radiation but for the sake of thoroughness, I sent a note to one of the pulmonologists who is an expert at bronchoscopy asking her opinion on whether or not the left lower lobe area should be sampled to be certain there is no cancer. Additionally a couple tiny spots lit up in the lower colon so need to refer her back to Dr. Ruffin for another colonoscopy. Doubtful those spots are cancer but we need to be certain. Mario Cardona DO documented in this encounter [facility] 08-12-2022 Note HNO ID: [id number] Author: Henrietta Valentino RT(R) Service: Nuclear Medicine Author Type: Technologist Type: Progress Notes Filed: 08/12/2022 11:11 AM Note Text: RADIOLOGY SERVICE PROGRESS NOTE SERVICE DATE: 08/12/2022 SERVICE TIME: 11:11 AM PATIENT IDENTITY VERIFICATION COMPLETED USING TWO (2) STANDARD IDENTIFIERS: Name and Date of confirmed by patient verbally FALL SCREENING: Has the patient had 2 falls in the last year or 1 fall with injury or currently using an Ambulatory Assistive Device (Walker, Cane, Wheelchair, Crutches, etc.)? No PATIENT GENDER DATA: .female ALLERGIES: Reviewed and unchanged MEDICATIONS REVIEWED: No PATIENT RELEVANT IMPLANT DATA REVIEWED: Not Applicable CREATININE: Creatinine Date Value Ref Range Status 07/21/2022 0.78 0.58 - 0.96 mg/dL Final 06/26/2022 0.75 0.58 - 0.96 mg/dL Final 05/28/2022 0.84 0.58 - 0.96 mg/dL Final Estimated Glomerular Filtration Rate Date Value Ref Range Status 07/21/2022 78 >=60 mL/min/1.73m? Final Comment: Estimated Glomerular Filtration Rate (eGFR) is calculated using the 2020 CKD-EPI creatinine equation. This equation utilizes serum creatinine, sex, and age as parameters. The creatinine assay has traceable calibration to isotope dilution-mass spectrometry. Refer to KDIGO guidelines for clinical interpretation. In patients with unstable renal function, e.g. those with acute kidney injury, the eGFR may not accurately reflect actual GFR. eGFR- Date Value Ref Range Status 07/23/2021 >60 Final P.O.C.T. RESULTS: N/A August 12, [address] PERFORMED: No IV SITE: Ambulatory: NM only - direct IV injection in the Right antecubital site POST EXAM PIV STATUS: Not applicable PROCEDURE TYPE: NM INJECT: PET/CT BODY SCAN. 11.1 mCi F18 FDG. No other medications given.. ADMINISTRATION TIME: 1106 PATIENT DISCHARGED TO: Ambulatory patient, left RI department area. A Diagnostic radioactive procedure has taken place, with no further precautions necessary other than routine body substance precautions. More information regarding radiation safety can be found using this link: [email or web address] [email or web address]%20Medic [email or web address] SIGNATURE: RT Ambrosio(R) PATIENT NAME: Jenise Bullock DATE: August 12, 2022 TIME: 11:11 AM PAGER/CONTACT #: [facility] 08-12-2022 History of Present illness Narrative RADIOLOGY SERVICE PROGRESS NOTE SERVICE DATE: 08/12/2022 SERVICE TIME: 11:11 AM PATIENT IDENTITY VERIFICATION COMPLETED USING TWO (2) STANDARD IDENTIFIERS: Name and Date of confirmed by patient verbally FALL SCREENING: Has the patient had 2 falls in the last year or 1 fall with injury or currently using an Ambulatory Assistive Device (Walker, Cane, Wheelchair, Crutches, etc.)? No PATIENT GENDER DATA: .female ALLERGIES: Reviewed and unchanged MEDICATIONS REVIEWED: No PATIENT RELEVANT IMPLANT DATA REVIEWED: Not Applicable CREATININE: Creatinine Date Value Ref Range Status 07/21/2022 0.78 0.58 - 0.96 mg/dL Final 06/26/2022 0.75 0.58 - 0.96 mg/dL Final 05/28/2022 0.84 0.58 - 0.96 mg/dL Final Estimated Glomerular Filtration Rate Date Value Ref Range Status 07/21/2022 78 >=60 mL/min/1.73m Final Comment: Estimated Glomerular Filtration Rate (eGFR) is calculated using the 2020 CKD-EPI creatinine equation. This equation utilizes serum creatinine, sex, and age as parameters. The creatinine assay has traceable calibration to isotope dilution-mass spectrometry. Refer to KDIGO guidelines for clinical interpretation. In patients with unstable renal function, e.g. those with acute kidney injury, the eGFR may not accurately reflect actual GFR. eGFR- Date Value Ref Range Status 07/23/2021 >60 Final P.O.C.T. RESULTS: N/A August 12, [address] PERFORMED: No IV SITE: Ambulatory: NM only - direct IV injection in the Right antecubital site POST EXAM PIV STATUS: Not applicable PROCEDURE TYPE: NM INJECT: PET/CT BODY SCAN. 11.1 mCi F18 FDG. No other medications given.. ADMINISTRATION TIME: 1106 PATIENT DISCHARGED TO: Ambulatory patient, left [place] department area. A Diagnostic radioactive procedure has taken place, with no further precautions necessary other than routine body substance precautions. More information regarding radiation safety can be found using this link: [email or web address] [email or web address]%20 [email or web address] SIGNATURE: JOVANI Valente) PATIENT NAME: Jenise Bullock DATE: August 12, 2022 TIME: 11:11 AM PAGER/CONTACT #: documented in this encounter [facility] 07-23-2022 Note HNO ID: [id number] Author: Mario Cardona, DO Service: ? Author Type: Physician Type: Progress Notes Filed: 07/23/2022 10:56 AM Note Text: Diagnosis: 1) Stage IV NSCLC. HPI: The patient is a 77 yo female who was diagnosed with NSCLC. She was initially found to have a lung mass when undergoing work up for cough and acute left sided flank pain. CXR revealed a left lung mass and subsequent CT chest revealed left lung mass on 10/21/13. She was then referred to [facility] and underwent diagnostic bronchoscopy with transbronchial FNA that were completed on 11/04/13. Found to have an adenocarcinoma at 11L and the LLL mass. It was EGFR mutation negative and ALK translocation negative. Patient was then admitted to the hospital on 11/08/13 with complaints of acute onset hemiparesis with left-sided weakness of the arm and leg. MRI brain on 11/08/13 revealed a solitary right cystic/necrotic peripherally enhancing mass measuring 2.4 cm. She subsequently underwent a right-sided craniotomy and resection of brain tumor on 11/09/13. Then received SRS. Underwent further evaluation with mediastinal lymph node evaluation--negative. She underwent EGD and colonoscopy on 11/24/2018. On the EGD portion of the exam, she was noted to have normal appearing mucosa of the esophagus, stomach as well as the first and second portions of the duodenum. On colonoscopy a 3-6 mm polyp was identified in the cecum and removed with cold biopsy forceps. There were nonbleeding external and internal hemorrhoids noted. Hemorrhoid banding was performed. Pathology demonstrated the polyp to have active inflammation consistent with an inflammatory polyp. Previous therapy: 1) Right-sided craniotomy and resection of brain tumor on 11/09/13 followed by GKS. 2) Carboplatin/Alimta x5 cycles. 3) Completed radiation to left lung 08/30/2014. Received 6600 cGy in 33 fractions. 4) Maintenance Alimta x16 cycles. PD. Current therapy: 1) Nivolumab since September 2015 in complete remission. Presents for ongoing management. Interim history: She has no subjective side effect from immunotherapy. Off iron for a while due to life stressors. Was started on Zoloft. Has been getting palpitations off an on since 03/2022. EKGs suggest NSR with premature atrial complexes. No particular triggers. Senses them for variable amounts of time. Anxious over recent diagnosis meningioma. She has no chronic cough. No dyspnea with exertion. No chest pain. No PAPER BOX CUTTER symptoms. PMH, medications and allergies as below personally reviewed by me today. Any changes documented in appropriate section. ROS: Constitutional: Denies episodes of fever and night sweats. Neuro: See above. HEENT: No recent change in voice or hearing. RESP: See above. CVS: No PND or orthopnea. No lower extremity swelling/edema. GI: Denies dysgeusia. Denies symptoms of stomatitis. Denies dysphagia and odynophagia. Denies reflux and abdominal pain. : Denies dysuria or gross hematuria. No symptoms of bladder outlet obstruction. Endo: Denies hot flashes. Denies polyuria and polydipsia. Denies heat and cold intolerance. Derm: Denies jaundice and diffuse pruritis. Heme: Denies unusual bleeding and unexplained bruising. Psych: Normal mood. PHYSICAL EXAM: VITALS: Blood pressure 115/63, pulse 81, temperature 36.6 ?C (97.8 ?F), height 160.2 cm (5' 3.09 ), weight 63.7 kg (140 lb 8 oz), SpO2 98 %. Well-appearing and in no acute distress. The sclera are anicteric bilaterally. No ptosis of left eye. Ocular motor test does not reveal any lag of the left eye. NECK: Supple. LYMPHATIC: There is no palpable cervical or supraclavicular adenopathy. RESPIRATORY: Inspiratory breath sounds are of diminished intensity in all tse. No longer can appreciate inspiratory squeak/rub at the left base. No rales, wheezes or rhonchi. CARDIOVASCULAR: Rhythm is regular. ABDOMEN: The abdomen is nondistended. No organomegaly. No tenderness. Extremities: No swelling or edema. SKIN: No jaundice or rash. NEUROLOGIC: No focal motor weakness of the extremities. LABS: ASSESSMENT/PLAN: (162.9) Adenocarcinoma of lung, stage 4, left (HCC) (primary encounter diagnosis) Comment: -KPS is 100%. -Continues to tolerate therapy well. -Recurrence of diplopia which is now appreciated all the time. Previously just at night when watching TV. -Paraneoplastic antibody panel negative. -No evidence of MG. -She remains asymptomatic from her metastatic non-small cell lung cancer. No respiratory symptoms. -We again discussed duration of therapy. She underwent resection followed by gamma knife to isolated brain metastasis. She then received chemotherapy and local therapy i.e. radiation to primary tumor and had extended pemetrexed. Has now been on nivolumab for nearly 7 years with no evidence of new disease or progression. Discussed plan to obtain PET scan. If negative, stop immunotherapy and follow (more content not included)... [facility] 07-22-2022 Note HNO ID: [id number] Author: Inna Taylor PA-C Service: ? Author Type: Physician Rebrander Type: Progress Notes Filed: 07/22/2022 6:19 PM Note Text: 77 year old female with c/o 4 week follow up to initiation of sertraline. Still having palpitations though they are fewer. Feels she isn't as stressed/ anxious. has vascular disease in legs, ulcer on foot: couldn't break through plaque so may have to have bypass. Notes has palpitations and they didn't place him on anxiety medication. Issues with left shoulder and arm completely resolved. 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) Snoring PAST SURGICAL HISTORY Procedure Laterality Date BRONCHOSCOPY 11/04/13 COLONOSCOPY FLX DX W/COLLJ SPEC WHEN PFRMD 11/24/2018 Colonoscopy ESOPHAGOGASTRODUODENOSCOPY TRANSORAL DIAGNOSTIC 11/24/2018 EGD EXPLORE CRANIOTOMY 11/09/13 right sided resection of brain tumor INSJ TUNNELED CTR VAD W/SUBQ PORT AGE 5 YR/> Right 08/13/2016 subclavian PAST SURGICAL HISTORY OF 1993 right axillary cyst removed PAST SURGICAL HISTORY OF 1962 lymph node removed from back of neck while in high school SALPINGO-OOPHORECTOMY COMPL/PRTL UNI/BI SPX 1982 TONSILLECTOMY HX Social History Tobacco Use Smoking status: Former Packs/day: 1.00 Years: 48.00 Pack years: 48.00 Types: Cigarettes Start date: 11/01/1964 Quit date: 10/24/2013 Years since quittin.7 Smokeless tobacco: Never Tobacco comments: Pt smoked one pack a week on AND off for 48 years, had quit four times in the past. 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 30 tablet 2 ferrous sulfate 325 mg (65 mg iron) EC tablet Take 65 mg by mouth. multivitamin tablet Take 1 tablet by mouth once daily. LORazepam (ATIVAN) 1 mg tablet Take 1 tablet by mouth every 8 hours as needed for up to 14 days. 30 tablet 0 acetaminophen (TYLENOL) 500 mg tablet Take 1,000 mg by mouth every 8 hours as needed. diphenhydrAMINE (BENADRYL) 25 mg tablet Take 25 mg by mouth every 8 hours as needed. Omeprazole Magnesium (PRILOSEC OTC) 20 mg tablet Take 2 tablets by mouth once daily. ibuprofen (MOTRIN) 200 mg tablet Take 200 mg by mouth every 6 hours as needed. No current facility-administered medications for this visit. DTAP,TDAP,TD(1 - Tdap) Never done SHINGRIX VACCINE(1 of 2) Never done BONE DENSITY Never done ADVANCE DIRECTIVE DISCUSSION due on 06/22/2022 DEPRESSION ASSESSMENT due on 06/22/2022 EXAM: BP 122/64 Pulse 100 Resp 18 Wt 63.5 kg (140 lb) SpO2 98% BMI 24.80 kg/m? Pleasant older woman in no acute distress. Alert and oriented all spheres. Normal affect and cognition. Speech normal. No deficits to learning or comprehension. Skin warm, dry, pink to lips and nailbeds. Normal turgor.4 week follow up Chest is normal shape. Lungs are clear to all tse with good air exchange through out. HRRR without murmur or gallop. No lifts, heaves, or rubs. Respirations regular and unlabored. Extrem: no clubbing or cyanosis. Edema: none. Extremities are warm and pink with prompt capillary refill. ASSESSMENT/PLAN: 1. Low serum potassium level - ICD9: 276.8, ICD10: E87.6 (primary diagnosis) Recheck lab 2. Stress reaction - ICD9: 308.9, ICD10: F43.0 3. Palpitations - ICD9: 785.1, ICD10: R00.2 Discussed options to treat with beta blockers. Patient agrees she has had improvement and is willing to try increase to 50mg with sertraline. F/U 4 weeks. 4. Numbness and tingling in left arm - ICD9: 782.0, ICD10: R20.0, R20.2 Resolved with OMT (more content not included)... [facility] 07-22-2022 History of Present illness Narrative 77 year old female with c/o 4 week follow up to initiation of sertraline. Still having palpitations though they are fewer. Feels she isn't as stressed/ anxious. has vascular disease in legs, ulcer on foot: couldn't break through plaque so may have to have bypass. Notes has palpitations and they didn't place him on anxiety medication. Issues with left shoulder and arm completely resolved. 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) Snoring PAST SURGICAL HISTORY Procedure Laterality Date BRONCHOSCOPY 11/04/13 COLONOSCOPY FLX DX W/COLLJ SPEC WHEN PFRMD 11/24/2018 Colonoscopy ESOPHAGOGASTRODUODENOSCOPY TRANSORAL DIAGNOSTIC 11/24/2018 EGD EXPLORE CRANIOTOMY 11/09/13 right sided resection of brain tumor INSJ TUNNELED CTR VAD W/SUBQ PORT AGE 5 YR/> Right 08/13/2016 subclavian PAST SURGICAL HISTORY OF 1993 right axillary cyst removed PAST SURGICAL HISTORY OF 1962 lymph node removed from back of neck while in high school SALPINGO-OOPHORECTOMY COMPL/PRTL UNI/BI SPX 1982 TONSILLECTOMY HX Social History Tobacco Use Smoking status: Former Packs/day: 1.00 Years: 48.00 Pack years: 48.00 Types: Cigarettes Start date: 11/01/1964 Quit date: 10/24/2013 Years since quittin.7 Smokeless tobacco: Never Tobacco comments: Pt smoked one pack a week on & off for 48 years, had quit four times in the past. 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 30 tablet 2 ferrous sulfate 325 mg (65 mg iron) EC tablet Take 65 mg by mouth. multivitamin tablet Take 1 tablet by mouth once daily. LORazepam (ATIVAN) 1 mg tablet Take 1 tablet by mouth every 8 hours as needed for up to 14 days. 30 tablet 0 acetaminophen (TYLENOL) 500 mg tablet Take 1,000 mg by mouth every 8 hours as needed. diphenhydrAMINE (BENADRYL) 25 mg tablet Take 25 mg by mouth every 8 hours as needed. Omeprazole Magnesium (PRILOSEC OTC) 20 mg tablet Take 2 tablets by mouth once daily. ibuprofen (MOTRIN) 200 mg tablet Take 200 mg by mouth every 6 hours as needed. No current facility-administered medications for this visit. DTAP,TDAP,TD(1 - Tdap) Never done SHINGRIX VACCINE(1 of 2) Never done BONE DENSITY Never done ADVANCE DIRECTIVE DISCUSSION due on 06/22/2022 DEPRESSION ASSESSMENT due on 06/22/2022 EXAM: BP 122/64 Pulse 100 Resp 18 Wt 63.5 kg (140 lb) SpO2 98% BMI 24.80 kg/m Pleasant older woman in no acute distress. Alert and oriented all spheres. Normal affect and cognition. Speech normal. No deficits to learning or comprehension. Skin warm, dry, pink to lips and nailbeds. Normal turgor.4 week follow up Chest is normal shape. Lungs are clear to all tse with good air exchange through out. HRRR without murmur or gallop. No lifts, heaves, or rubs. Respirations regular and unlabored. Extrem: no clubbing or cyanosis. Edema: none. Extremities are warm and pink with prompt capillary refill. ASSESSMENT/PLAN: 1. Low serum potassium level - ICD9: 276.8, ICD10: E87.6 (primary diagnosis) Recheck lab 2. Stress reaction - ICD9: 308.9, ICD10: F43.0 3. Palpitations - ICD9: 785.1, ICD10: R00.2 Discussed options to treat with beta blockers. Patient agrees she has had improvement and is willing to try increase to 50mg with sertraline. F/U 4 weeks. 4. Numbness and tingling in left arm - ICD9: 782.0, ICD10: R20.0, R20.2 Resolved with OMT 5. Acute pain of left shoulder - ICD9: 719.41, ICD10: M25.512 Resolved. Inna Taylor PA-C Some of this note may have been copied and pasted for the purpose of history context and comparison. documented in this encounter [facility] 07-21-2022 Note HNO ID: [id number] Author: RT Jerad(R) Service: ? Author Type: Aviation Medicine Specialist Type: Progress Notes Filed: 07/21/2022 11:59 AM Note Text: Radiology Service Progress Note PATIENT NAME: Jenise Bulolck DATE OF SERVICE: July 21, 2022 TIME: 11:59 AM PATIENT IDENTITY VERIFICATION COMPLETED USING TWO (2) IDENTIFIERS: Name and Date of confirmed by patient verbally. FALL SCREENING: Has the patient had 2 falls in the last year or 1 fall with injury or currently using an Ambulatory Assistive Device (Walker, Cane, Wheelchair, Crutches, etc.)? No PATIENT GENDER DATA: Female. status: : No status: NO. PATIENT RELEVANT IMPLANT DATA REVIEWED: Yes RADIOLOGY DEPARTMENT: CT; Exam(s) Completed: Chest Abdomen Pelvis PERIPHERAL IV DATA: power port accessed by [employer] SIGNED BY: RT Fernando(R) July 21, 2022 11:59 AM [facility] 07-21-2022 History of Present illness Narrative Radiology Service Progress Note PATIENT NAME: Jenise Bullock DATE OF SERVICE: July 21, 2022 TIME: 11:59 AM PATIENT IDENTITY VERIFICATION COMPLETED USING TWO (2) IDENTIFIERS: Name and Date of confirmed by patient verbally. FALL SCREENING: Has the patient had 2 falls in the last year or 1 fall with injury or currently using an Ambulatory Assistive Device (Walker, Cane, Wheelchair, Crutches, etc.)? No PATIENT GENDER DATA: Female. status: : No status: NO. PATIENT RELEVANT IMPLANT DATA REVIEWED: Yes RADIOLOGY DEPARTMENT: CT; Exam(s) Completed: Chest Abdomen Pelvis PERIPHERAL IV DATA: power port accessed by [employer] SIGNED BY: RT Fernando(R) July 21, 2022 11:59 AM documented in this encounter [facility] 07-16-2022 History of Present illness Narrative Images from the original note were not included. [facility] Virtual Follow-Up Visit We had a virtual visit conducted via [employer]. I received consent from the patient to perform the visit using this platform. Diagnosis: Brain metastasis s/p resection followed by SRS and small left parietal meningioma History of Present Illness: The patient is a 76 year old, right handed female is here for a follow-up visit for her metastatic NSCLC initially diagnosed in 2013. In October 2013, she developed a left-sided weakness and the work-up MRI showed a right frontal lesion. She underwent gross total tumor resection on 11/09/13 (Pathology: metastatic lung adenocarcinoma), followed by GKRS to the resection cavity (18Gy/1fx to 54% IDL) on 12/01/13 (with Dr. Clifford Llamas). She underwent Carboplatin/Alimta x5 cycles, and completed radiation (66Gy/33fx) to left lung on 08/30/2014. She underwent Alimta x16 cycles previously. Our last follow-up was 07/04/2020 when she denied any symptoms and her image studies were stable with no new lesions and no increase in CBV and the plan was MRI F/U in 12 months. She had sudden onset of diplopia and ptosis in Feb 2021. She underwent brain MRI (03/19/2021) which showed normal upper cranial nerve imaging with no cause for diplopia or left ptosis detected on the current examination. July 17, 2021 update: The patient presents for follow up MRI via virtual visit. MRI was taken on 07/12/2021, which showed no evidence of recurrent or new metastasis. She reports that she has been taking Opdivo for 5 years. She denies taking steroids or AEDs. She also denies any headache, weakness, but still has some double vision although it has improved since Feb 2021. No other neurological symptoms. She is pursuing normal activities without restriction and has no verbalized complaints. July 15, 2022 update: Mrs. Bullock is a pleasant 77 lady who we have been followed for intracranial metastases monitoring. She is asymptomatic and neurologically stable. Her systemic disease is well controlled. Last Chemo: Opdivo (Nivolumab) Current Steroids dose: None Current AED Dose: None Med Onc: Dr. Cardona Rad Onc: Dr. 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) Snoring Past Surgical History: PAST SURGICAL HISTORY Procedure Laterality Date BRONCHOSCOPY 11/04/13 COLONOSCOPY FLX DX W/COLLJ SPEC WHEN PFRMD 11/24/2018 Colonoscopy ESOPHAGOGASTRODUODENOSCOPY TRANSORAL DIAGNOSTIC 11/24/2018 EGD EXPLORE CRANIOTOMY 11/09/13 right sided resection of brain tumor INSJ TUNNELED CTR VAD W/SUBQ PORT AGE 5 YR/> Right 08/13/2016 subclavian PAST SURGICAL HISTORY OF 1993 right axillary cyst removed PAST SURGICAL HISTORY OF 1962 lymph node removed from back of neck while in high school SALPINGO-OOPHORECTOMY COMPL/PRTL UNI/BI SPX 1982 TONSILLECTOMY HX Family History: FAMILY HISTORY Problem Relation Age of Onset Cancer Mother unk other (parkinson's disease) Father other (myasthenia gravis) Maternal Grandmother Cancer Maternal Grandfather throat Diabetes Paternal Grandmother Cancer Paternal Grandfather colo-rectal Cancer Brother bladder Cancer Paternal Uncle leukemia Cancer Paternal Aunt lung Social History Tobacco Use Smoking status: Former Packs/day: 1.00 Years: 48.00 Pack years: 48.00 Types: Cigarettes Start date: 11/01/1964 Quit date: 10/24/2013 Years since quittin.7 Smokeless tobacco: Never Tobacco comments: Pt smoked one pack a week on & off for 48 years, had quit four times in the past. Vaping Use Vaping Use: Never used Substance Use Topics Alcohol use: Yes Alcohol/week: 2.5 standard drinks Types: 1 Glasses of Wine (5oz) per week Comment: Occasionally Drug use: No Allergies: Penicillins Current Outpatient Medications Medication Sig sertraline (ZOLOFT) 25 mg tablet Take 1 tablet by mouth once daily. ferrous sulfate 325 mg (65 mg iron) EC tablet Take 65 mg by mouth. multivitamin tablet Take 1 tablet by mouth once daily. LORazepam (ATIVAN) 1 mg tablet Take 1 tablet by mouth every 8 hours as needed for up to 14 days. acetaminophen (TYLENOL) 500 mg tablet Take 1,000 mg by mouth every 8 hours as needed. diphenhydrAMINE (BENADRYL) 25 mg tablet Take 25 mg by mouth every 8 hours as needed. Omeprazole Magnesium (PRILOSEC OTC) 20 mg tablet Take 2 tablets by mouth once daily. ibuprofen (MOTRIN) 200 mg tablet Take 200 mg by mouth every 6 hours as needed. No current facility-administered medications for this visit. Review of systems: Constitutional: No recent fever or weight loss. Eyes: No history of glaucoma or cataracts. ENMT: No recent ear infection, nasal congestion, mouth sores or sore throat. CV: No history of chest pain, palpitations or leg swelling. Respiratory: No history of SOB, asthma or recent cough. Gastrointestinal: No history of nausea, vomiting, dysphagia or abdominal pain. Genitourinary: No history of hematuria or dysuria. Musculoskeletal: No complaint of arthritis, unstable gait or arm/leg weakness. Psychiatric: No history of hallucinations or depression or anxiety. ROS Neurological: No complaint of headache No complaint of tinnitus No complaint of decreased hearing Complaint of diplopia No complaint of ptosis No complaint of blurred vision. No complaint of arm/leg numbness No complaint of limb coordination No complaint of syncope No complaint of seizures. No complaint of memory changes or disorientation. Objective Physical Exam: This visit was conducted as a virtual (audio and video) visit. Physical Exam: General appearance: well appearing, in no acute distress, alert Eyes: clear, anicteric Extremities: no edema Skin: color unremarkable. Neurological Physical exam: General : Awake, alert, appropriately conversant. No apparent distress Higher integrative functions: Oriented to person, place & time. Memory, Attention Span and Concentration: Good. 3rd ,4th ,6th CN: full extra-ocular movements. 7th CN: Facial muscles move symmetrically. Motor: No obvious motor weakness noted and non-focal exam including no drift Sensory: No asymmetry noted by patient KPS and ECOG Provider Data Form PHQ 2 and 9 Total Scores 04/07/2022 PHQ-2 Score 0 PHQ-9 Score - Labs: CBC Latest Ref Rng & Units 04/29/2022 05/28/2022 06/26/2022 WBC 3.70 - 11.00 k/uL 6.12 5.56 6.45 RBC 3.90 - 5.20 m/uL 4.60 4.74 4.64 HEMOGLOBIN 11.5 - 15.5 g/dL 11.9 12.2 11.9 HEMOGLOBIN, CAMPOS 11.5 - 15.5 g/dL - - - HEMATOCRIT 36.0 - 46.0 % 37.1 39.4 38.1 MCV 80.0 - 100.0 fL 80.7 83.1 82.1 MCV, CAMPOS 80.0 - 100.0 fL - - - MCH 26.0 - 34.0 pg 25.9(L) 25.7(L) 25.6(L) MCH, CAMPOS 26.0 - 34.0 pg - - - MCHC 30.5 - 36.0 g/dL 32.1 31.0 31.2 MCHC, CAMPOS 30.5 - 36.0 g/dL - - - RDW, CAMPOS 11.5 - 15.0 % - - - RDW-CV 11.5 - 15.0 % 15.4(H) 14.8 14.9 PLATELETS 150 - 400 k/uL 271 275 262 MPV 9.0 - 12.7 fL 10.7 11.6 10.6 MPV, CAMPOS 9.0 - 12.7 fL - - - NEUT%, CAMPOS % - - - MONO%, CAMPOS % - - - EOS%, CAMPOS % - - - BASO% % 1.1 1.3 0.9 BASO%, CAMPOS % - - - ABS NEUT (ANC) 1.45 - 7.50 k/uL 4.67 4.19 5.06 ABS NEUT, CAMPOS 1.45 - 7.50 k/uL - - - ABS LYMP, CAMPOS 1.00 - 4.00 k/uL - - - ABS LYMPH 1.00 - 4.00 k/uL 0.94(L) 0.82(L) 0.78(L) ABS MONO <0.87 k/uL 0.32 0.35 0.46 ABS MONO, CAMPOS 0.00 - 0.86 k/uL - - - ABS EOS, CAMPOS 0.00 - 0.45 k/uL - - - ABS EOSIN <0.46 k/uL 0.11 0.12 0.07 ABS BASO <0.11 k/uL 0.07 0.07 0.06 ABS BASO, CAMPOS 0.00 - 0.10 k/uL - - - NRBC /100 WBC 0.0 0.0 0.0 DIFF TYPE - - - - CMP Latest Ref Rng & Units 04/29/2022 05/28/2022 06/26/2022 SODIUM 136 - 144 mmol/L 140 137 138 SODIUM, CAMPOS 136 - 145 mmol/L - - - SODIUM, CAMPOS 136 - 145 mmol/L - - - POTASSIUM 3.7 - 5.1 mmol/L 3.8 4.0 3.6(L) POTASSIUM, CAMPOS 3.5 - 5.1 mmol/L - - - CHLORIDE 97 - 105 mmol/L 102 98 102 CHLORIDE, CAMPOS 98 - 107 mmol/L - - - CO2 22 - 30 mmol/L 26 29 26 CO2, CAMPOS 21.0 - 32.0 mmol/L - - - GLUCOSE 74 - 99 mg/dL 104(H) 92 81 GLUCOSE, CAMPOS 70 - 110 mg/dL - - - BUN 7 - 21 mg/dL 16 15 16 BUN, CAMPOS 7 - 18 mg/dL - - - CREATININE 0.58 - 0.96 mg/dL 0.81 0.84 0.75 CREATININE (POCT) 0.7 - 1.4 mg/dL - - - CREATININE, CAMPOS 0.7 - 1.4 mg/dL - - - EGFR >=60 mL/min/1.73m 75 72 82 EGFR-ALL OTHER RACES . - - - EGFR- - - - - PROTEIN, TOTAL 6.3 - 8.0 g/dL 5.9(L) 6.3 5.9(L) ALBUMIN 3.9 - 4.9 g/dL 4.0 4.1 3.9 CALCIUM, CAMPOS 8.5 - 10.1 mg/dL - - - CALCIUM, TOTAL 8.5 - 10.2 mg/dL 9.1 8.9 9.0 BILIRUBIN, TOTAL 0.2 - 1.3 mg/dL 0.2 0.3 0.2 AST 13 - 35 U/L 18 16 15 ALT 7 - 38 U/L 10 9 7 ALKALINE PHOSPHATASE 34 - 123 U/L 86 88 85 Final Pathology: NSCLC Imaging: MRI Report MRI BRAIN WO/W IVCON Exam End: 07/14/2022 1:34 PM (Final result) Narrative: * * *Final Report* * * DATE OF EXAM: Jul 14 2022 1:30PM BATSHE[facility] [id number] - MRI BRAIN WO/W IVCON / PROCEDURE REASON: Brain metastasis (HCC) * * * * Physician Interpretation * * * * EXAMINATION: MRI BRAIN WO/W IVCON CLINICAL HISTORY: 77-year-old female with metastatic NSCLC?initially?diagnosed in 2013 s/p tumor resection on 11/09/13, followed by [facility] to the resection cavity on 12/01/13. Follow-up imaging. TECHNIQUE: Intracranial mass brain MRI protocol without and with contrast including diffusion and gradient echo images. MR perfusion study was also performed of the entire brain following bolus intravenous administration of gadolinium utilizing dynamic susceptibility-weighted contrast-enhanced acquisition. Postprocessing of the perfusion images was not available at the time of dictation, and neither the performing radiographic technologist nor the 3-D post processing lab were reachable for troubleshooting. MQ: [id number] Contrast: 13 mL Dotarem IV COMPARISON: MRI brain 07/12/2021 and additional priors dating back to 11/08/2013 RESULT: Acute Change: There is no evidence of restricted diffusion to suggest an acute infarct. Hemorrhage: Susceptibility over the right frontoparietal convexity related to prior anterior paramedian parietal calvarial craniotomy and extending into the underlying parenchymal defect in the right precentral gyrus, consistent with postoperative blood degradation byproducts. Postoperative changes/Mass Lesion/ Mass Effect: Right anterior superior parietal calvarial craniotomy with small underlying operative defect in the right precentral gyrus with unchanged minimal surrounding T2/FLAIR signal hyperintensity/gliosis and no postcontrast enhancement. No significant mass effect. Small left parietal, extra-axial, dural based, T2 hypointense, T1 isointense avidly enhancing 0.6 x 0.4 x 0.6 cm mass with no substantial mass effect consistent with a small meningioma (series 17, image 123). This was present on prior studies dating back to 11/08/2013, and has minimally increased in size since that time, previously measuring approximately 0.4 x 0.3 x 0.4 cm. Perfusion: No post processed perfusion images were available the time of interpretation despite multiple attempts to acquire them. Nevertheless, review of the source images demonstrates that the these images would be of doubtful utility given the degree of susceptibility artifact over the right parietal convexity, lack of any enhancing lesions that could accurately characterized on the perfusion images, and absence of any substantial changes from the most recent prior MRI. Chronic Change: Scattered patchy areas of increased T2 and FLAIR signal are present in the supratentorial white matter which is a nonspecific finding but likely represents mild chronic microvascular ischemia. Parenchyma: There is mild generalized parenchymal volume loss. The brain parenchyma is otherwise within normal limits of signal intensity and morphology. Ventricles: Ventricular calibers are commensurate with the parenchymal volume and normal in configuration. Skull Base: Hypothalamic and pituitary region are grossly normal. Craniocervical junction is normal. No significant marrow replacement process. Vasculature: Major intracranial arterial structures, and dural venous sinuses show typical flow void, suggesting patency by spin echo criteria. Other: Frothy secretions in the dominant left sphenoid sinus and mild mucosal thickening of the ethmoid sinuses. Underpneumatized frontal sinuses. Trace mucosal thickening along the ventral margins of the bilateral maxillary sinuses. The mastoid air cells and middle ear cavities appear clear. Bilateral lens replacements. Otherwise unremarkable appearance of the orbits. Presumed subcentimeter lymph nodes in the right parotid gland (series 4, image 14). Chronic postoperative changes in the right parietal convexity scalp. All dentition extracted with dentures in place. Otherwise unremarkable appearance of the imaged extra cranial soft tissues. Impression: IMPRESSION: Stable postoperative appearance of the brain since the 07/12/2021 exam. Exceedingly slow growing small left parietal convexity probable meningioma with no significant mass effect. Areas of paranasal sinus mucosal thickening with frothy sphenoid sinus secretions which may be seen in the setting of acute sinusitis. Aerospace Assembler: SHERLY Transcribe Date/Time: Jul 14 2022 2:40P Dictated by : MICHELE ISIDRO MD This examination was interpreted and the report reviewed and electronically signed by: DORCAS FLORES MD on Jul 14 2022 5:00PM EST Data Review: Personal review of medical records: Kee Sevilla MD Personal review of image, tracing or specimen: I reviewed the [facility] chart. Assessment & Plan The patient appears to be doing very well today. She denies any significant neurological complaints and feels well. She has had no seizure or new concerns regarding her primary disease either. The image studies are completely stable with no evidence of new lesions. Nonetheless, a small meningioma in the left parietal area seems to be progressively enlarging over the past few years. While there is no current role for intervention of this lesion, given its enlargement over time,we will obtain a brain MRI in 6 months to once again evaluate this area. We discussed that there is a number of treatment options should the lesion continue to progress but she is in agreement with expectant management at this time.I have advised the patient that if she experiences any neurological progression, worsening symptoms or concerns she should contact the office. Recommendations: As above Medicines: No Change Instructions: Continue present activity We spent > 25 minutes in the visit, with more than 50% of the total [id number] time of the visit in counseling / coordination of care on the date of the service This included preparing to see the patient, [id number] patient care, completing clinical documentation, obtaining and/or reviewing separately obtained history, counseling and educating the patient/family/caregiver, communicating with other HCPs (not separately reported), independently interpreting results (not separately reported), communicating results to the patient/family/caregiver and care coordination (not separately reported). Ashley Quinones M.D. [facility] documented in this encounter [facility] 07-14-2022 Note HNO ID: [id number] Author: RT Tiesha(R) Service: ? Author Type: Technologist Type: Progress Notes Filed: 07/14/2022 12:57 PM Note Text: Radiology Service Progress Note DATE OF SERVICE: July 14, 2022 TIME: 12:57 PM PATIENT IDENTITY VERIFICATION COMPLETED USING TWO (2) STANDARD IDENTIFIERS: Name and Date of confirmed by patient verbally. FALL SCREENING: Has the patient had 2 falls in the last year or 1 fall with injury or currently using an Ambulatory Assistive Device (Walker, Cane, Wheelchair, Crutches, etc.)? No PATIENT GENDER DATA: Female. status: : No status: NO. PATIENT RELEVANT IMPLANT DATA REVIEWED: Yes ALLERGIES: Reviewed and unchanged CONTRAST ALLERGY: NO. EXAM: MRI - CONTRAST TYPE: GROUP II PERIPHERAL IV DATA: Ambulatory: A peripheral IV was started in the Left antecubital site with a Angio cath: 22 gauge. RADIOLOGY DEPARTMENT: MR; Exam(s) Completed: Head: Routine Brain with Perfusion SIGNATURE: RT Tiesha(R) PATIENT NAME: Jenise Bullock DATE: July 14, 2022 TIME: 12:57 PM [facility] 07-14-2022 History of Present illness Narrative Radiology Service Progress Note DATE OF SERVICE: July 14, 2022 TIME: 12:57 PM PATIENT IDENTITY VERIFICATION COMPLETED USING TWO (2) STANDARD IDENTIFIERS: Name and Date of confirmed by patient verbally. FALL SCREENING: Has the patient had 2 falls in the last year or 1 fall with injury or currently using an Ambulatory Assistive Device (Walker, Cane, Wheelchair, Crutches, etc.)? No PATIENT GENDER DATA: Female. status: : No status: NO. PATIENT RELEVANT IMPLANT DATA REVIEWED: Yes ALLERGIES: Reviewed and unchanged CONTRAST ALLERGY: NO. EXAM: MRI - CONTRAST TYPE: GROUP II PERIPHERAL IV DATA: Ambulatory: A peripheral IV was started in the Left antecubital site with a Angio cath: 22 gauge. RADIOLOGY DEPARTMENT: MR; Exam(s) Completed: Head: Routine Brain with Perfusion SIGNATURE: RT Tiesha(R) PATIENT NAME: Jenise Bullock DATE: July 14, 2022 TIME: 12:57 PM documented in this encounter [facility] 06-26-2022 History of Present illness Narrative [id number] Jenise gutierres [id number] documented in this encounter [facility] 06-17-2022 Instructions M Sean Taylor PA-C - 06/17/2022 2:07 PM EST Sertraline, Oral What are other names for this medicine? Type of medicine: selective serotonin reuptake inhibitor (SSRI); antidepressant Generic and brand names: sertraline, oral; Zoloft; Zoloft Oral Concentrate What is this medicine used for? This medicine is taken by mouth to treat: depression obsessive-compulsive disorder (OCD) panic disorder posttraumatic stress disorder social anxiety disorder (social phobia) premenstrual dysphoric disorder (PMDD). It may also be used for other conditions as determined by your healthcare provider. What should my healthcare provider know before I take this medicine? Before taking this medicine, tell your healthcare provider if you have ever had: an allergic reaction to any medicine heart disease liver or kidney disease seizures (convulsions) other mood disorders such as bipolar disorder problems with low levels of sodium in the blood thoughts of suicide Do not take this medicine if you have taken an MAO inhibitor antidepressant in the last 2 weeks. Serious side effects can occur. Discuss this with your healthcare provider. Do not take pimozide (Orap) while taking this medicine. Females of childbearing age: Talk with your healthcare provider if you are or plan to become . It is not known whether this medicine will harm an unborn baby. Do not breast-feed while taking this medicine without your healthcare provider's approval. How do I take it? Take this medicine exactly as your healthcare provider prescribes. Do not take more of it or take it longer than prescribed. Taking too much can increase the risk of side effects. Do not stop taking this medicine without your healthcare provider's approval. You may need to reduce your dosage slowly to avoid withdrawal symptoms. An adult should supervise the use of this medicine by a child. This medicine comes in tablet and liquid concentrate form. If you have the liquid concentrate, use the dropper to measure the exact dose your healthcare provider prescribes. Just before taking it, mix the dose with a cup of water, roz moshe, lemon/levelock soda, lemonade, or orange juice ONLY. Do not mix it with any other liquid. Drink it right after you mix it. Do not take disulfiram (Antabuse) while taking the liquid form of this medicine. Your healthcare provider will want to see you regularly to check your response to this medicine and to see if your dosage needs to be changed. It may take some time for you to feel better. Do not stop taking the medicine until your healthcare provider tells you to do so. You may have to take this medicine for 4 weeks or more to feel its full effects. Do not miss a dose. If you miss a dose, take it as soon as you remember unless it is almost time for the next scheduled dose. In that case, skip the missed dose and take the next one as directed. Do not take double doses. If you are not sure of what to do if you miss a dose, or if you miss more than one dose, contact your healthcare provider. What should I watch out for? Children and teens who take antidepressants are more likely to think about harming or killing themselves or try to do so than children who do not take antidepressants. Call your child's healthcare provider right away if your child or teen has: new or increased thoughts of suicide changes in mood or behavior such as becoming irritable or anxious. This medicine may make you dizzy or drowsy. Do not drive or operate machinery unless you are fully alert. This medicine may increase the effects of alcohol and interact with many other medicines. Do not drink alcohol or take any other medicine, including nonprescription products or natural remedies, unless your healthcare provider approves. Occasionally, this medicine can cause some sexual problems. Ask your healthcare provider about this. In rare cases, this medicine may cause severe weight loss. Talk to your healthcare provider about this. Adults over the age of 65 may be more sensitive to this medicine and may require a different dosage. What are the possible side effects? Along with its needed effects, your medicine may cause some unwanted side effects. Some side effects may be very serious. Some side effects may go away as your body adjusts to the medicine. Tell your healthcare provider if you have any side effects that continue or get worse. Life-threatening (Report these to your healthcare provider right away. If you are unable to reach your healthcare provider right away, get emergency medical care or call 911 for help): Allergic reaction (hives; itching; rash; trouble breathing; tightness in your chest; swelling of your lips, tongue, and throat) Serious (report these to your healthcare provider right away): Thoughts of suicide; seizures; severe nervousness; rash; severe headache; hallucinations; slurred speech; severe confusion; fast heart beat. Other: Headache, loss of appetite, weight loss or gain, drowsiness, stomach pain, weakness, nausea, vomiting, shaking, trouble sleeping, dizziness, dry mouth, constipation, sweating, diarrhea, restlessness, rash, itching, change in sex drive or ability, muscle or joint pain, fever. What products might interact with this medicine? When you take this medicine with other medicines, it can change the way this or any of the other medicines work. Nonprescription medicines, vitamins, natural remedies, and certain foods may also interact. Using these products together might cause harmful side effects. Talk to your healthcare provider if you are taking: anti-HIV medicines such as delavirdine (Rescriptor) and ritonavir (Norvir) antipsychotics such as aripiprazole (Abilify), clozapine (Clozaril), haloperidol (Haldol), and risperidone (Risperdal) antiseizure medicines such as carbamazepine (Tegretol), valproic acid (Depakote), and phenytoin (Dilantin) aspirin or other salicylates atomoxetine (Strattera) benzodiazepines such as diazepam (Valium), alprazolam (Xanax), and triazolam (Halcion) beta blockers such as bisoprolol (Zebeta), propranolol (Inderal), timolol, and metoprolol (Lopressor, Toprol XL) buspirone (BuSpar) cimetidine (Tagamet) dextromethorphan, an ingredient in many cough and cold medicines such as Robitussin-DM digoxin (Lanoxin) disulfiram (Antabuse) may interact with the liquid concentrate of this medicine because it contains alcohol diuretics (water pills) such as hydrochlorothiazide (Esidrix, Microzide), furosemide (Lasix), chlorothiazide (Diuril), bumetanide (Bumex), torsemide (Demadex), spironolactone (Aldactone), triamterene (Dyrenium), and amiloride (Midamor) heart medicines such as propafenone (Rythmol), flecainide (Tambocor), mexiletine (Mexitil), procainamide (Pronestyl) and quinidine herbal remedies such as [place]'s wort, kava, valerian, SAMe, tryptophan, and gotu mateusz linezolid (Zyvox) lithium (Lithobid, Eskalith) MAO inhibitor antidepressants such as isocarboxazid (Marplan), phenelzine (Nardil), selegiline (Eldepryl), or tranylcypromine (Parnate) (Do not take an MAO inhibitor and this medicine within 14 days of each other.) medicines to treat migraines such as naratriptan (Amerge), almotriptan (Axert), frovatriptan (Frova), rizatriptan (Maxalt), eletriptan (Relpax) zolmitriptan (Zomig), and sumatriptan succinate (Imitrex) muscle relaxants such as tizanidine (Zanaflex), cyclobenzaprine (Flexeril), carisoprodol (Soma), methocarbamol (Robaxin), dantrolene Dantrium), and baclofen (Lioresal) nonsteroidal anti-inflammatory drugs (NSAIDs) such as ibuprofen (Motrin, Motrin IB, Advil, Nuprin), naproxen (Naprosyn, Anaprox, Aleve, Naprelan), ketoprofen (Orudis, Orudis KT, Oruvail), nabumetone (Relafen), indomethacin (Indocin), ketorolac (Toradol), sulindac (Clinoril), piroxicam (Feldene), diclofenac (Voltaren, Cataflam), and oxaprozin (Daypro) other antidepressants such as bupropion (Wellbutrin), nefazodone, amitriptyline, nortriptyline (Aventyl, Pamelor), imipramine (Tofranil), doxepin (Sinequan), sertraline (Zoloft), fluoxetine (Prozac), escitalopram (Lexapro), paroxetine (Paxil), venlafaxine (Effexor), fluvoxamine (Luvox), bupropion (Wellbutrin), and trazodone (Desyrel) pain medicines such as morphine (Oramorph, MS Contin, Roxanol), codeine, oxycodone (OxyContin, Roxicodone), meperidine (Demerol), hydrocodone/acetaminophen (Vicodin, Lortab), methadone (Dolophine), and tramadol (Ultram) phenothiazines such as chlorpromazine (Thorazine), prochlorperazine (Compazine), perphenazine, thioridazine, and trifluoperazine (Stelazine) procarbazine (Matulane) sedatives such as phenobarbital, zolpidem (Ambien), triazolam (Halcion), butabarbital (Butisol), and zaleplon (Sonata) stimulants and appetite suppressants such as dextroamphetamine (Dexedrine, Dextrostat), methamphetamine (Desoxyn), sibutramine (Meridia), and methylphenidate (Ritalin) warfarin (Coumadin). Do not drink alcohol while you are taking this medicine. Keep a list of all your medicines (prescription, nonprescription, supplements, natural remedies, and vitamins) with you. Be sure that you tell all healthcare providers who treat you about all the products you are taking. How should I store this medicine? Store this medicine at room temperature. Keep the container tightly closed. Protect from heat, high humidity, and bright light. This advisory includes selected information only and may not include all side effects of this medicine or interactions with other medicines. Ask your healthcare provider or pharmacist for more information or if you have any questions. Ask your pharmacist for the best way to dispose of outdated medicine or medicine you have not used. Do not throw medicine in the trash. Keep all medicines out of the reach of children. Do not share medicines with other people. Published by [employer]. This content is reviewed periodically and is subject to change as new health information becomes available. The information is intended to inform and educate and is not a replacement for medical evaluation, advice, diagnosis or treatment by a healthcare professional. Developed by [employer] Copyright 2007 [employer] and/or one of its subsidiaries. All Rights Reserved. Special Instructions: You may start with 1/2 tablet if you have complications with a whole tablet initially. It takes a few weeks to adjust and about 3-4 weeks to have the full effect of each dose change. Copyright [employer] 2007 Medication Advisor Copyright 2008 [employer]. A Chest pain: When to seek help -- If you have chest pain that is new, severe, prolonged, or if chest pain causes concern, call 911 immediately. The emergency medical services (EMS) personnel in your community are prepared to respond rapidly, and will take you to the nearest hospital. For a patient having a heart attack, every minute is important. Remember, the faster you get to a hospital, the sooner you can receive treatment. Do not drive yourself to the hospital and do not ask someone else to drive you. Calling 911 is safer than driving for two reasons: From the moment EMS personnel arrive, they can begin evaluating and treating chest pain. If you drive to the hospital, treatment cannot begin until you arrive in the emergency department. If a dangerous complication of a heart attack (eg, a serious irregular heart rhythm) occurs on the way to the hospital, EMS personnel are trained to treat the problem immediately. While waiting for the squad, rest sitting or laying down and try to remain calm. If you are not allergic: chew 4 Baby Aspirin or 2 adult aspirin. Aspirin has been shown to reduce incidence and severity with heart attacks. ll rights reserved. - www.[employer] documented in this encounter [facility] 06-17-2022 History of Present illness Narrative 77 year old female with c/o moved left arm a few weeks back which made a pop and since left arm feels tingly on and off. Sometimes she has some tightness in face, neck, upper chest, numbness in left shoulder Had a good friend who friend who from heart attack. Lost mother in May also in past. COPD, ulcer on foot. Very worried, stressed over many things. 10/26/2019 echo - The left ventricle is normal in size. Left ventricular systolic function is normal. EF = 56 5% (2D 4-ch.) Grade I left ventricular diastolic dysfunction. - The right ventricle is normal in size. Right ventricular systolic function is normal. - There are no significant valvular abnormalities. - The patient has not had a prior CC echocardiographic exam for comparison. 01/02/2014 exercise nuclear stress WNL, 103% MHR, FC 7.1METS, stage 3 2022 1. Stable left perihilar consolidation with fibrosis and bronchiectasis consistent with treated neoplasm 2. Stable 5 mm subpleural nodule lateral right upper lobe. No new pulmonary nodules. 3. No new thoracic lymphadenopathy Hx 05/28/[address] Cardona: (162.9) Adenocarcinoma of lung, stage 4, left (HCC) (primary encounter diagnosis) Comment: -KPS is 100%. -Continues to tolerate therapy well. -Recurrence of diplopia which is now appreciated all the time. Previously just at night when watching TV. -Paraneoplastic antibody panel negative. -No evidence of MG. -She remains asymptomatic from her metastatic non-small cell lung cancer. No respiratory symptoms. -We again discussed duration of therapy. The best data for her situation comes from the Checkmate 153 safety trial. That study suggested continuing treatment beyond 1 year led to an improvement in progression free and overall survival. However, given her long progression free interval now over 6 years, I [facility] Plan: -Continue nivolumab. -CTs in July. 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 Then received SRS. -Neurologically stable Plan: -Repeat MRI brain per neurosurgery in June 2022. 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) Snoring PAST SURGICAL HISTORY Procedure Laterality Date BRONCHOSCOPY 11/04/13 COLONOSCOPY FLX DX W/COLLJ SPEC WHEN PFRMD 11/24/2018 Colonoscopy ESOPHAGOGASTRODUODENOSCOPY TRANSORAL DIAGNOSTIC 11/24/2018 EGD EXPLORE CRANIOTOMY 11/09/13 right sided resection of brain tumor INSJ TUNNELED CTR VAD W/SUBQ PORT AGE 5 YR/> Right 08/13/2016 subclavian PAST SURGICAL HISTORY OF 1993 right axillary cyst removed PAST SURGICAL HISTORY OF 1962 lymph node removed from back of neck while in high school SALPINGO-OOPHORECTOMY COMPL/PRTL UNI/BI SPX 1982 TONSILLECTOMY HX Social History Tobacco Use Smoking status: Former Packs/day: 1.00 Years: 48.00 Pack years: 48.00 Types: Cigarettes Start date: 11/01/1964 Quit date: 10/24/2013 Years since quittin.6 Smokeless tobacco: Never Tobacco comments: Pt smoked one pack a week on & off for 48 years, had quit four times in the past. 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 multivitamin tablet Take 1 tablet by mouth once daily. LORazepam (ATIVAN) 1 mg tablet Take 1 tablet by mouth every 8 hours as needed for up to 14 days. 30 tablet 0 acetaminophen (TYLENOL) 500 mg tablet Take 1,000 mg by mouth every 8 hours as needed. diphenhydrAMINE (BENADRYL) 25 mg tablet Take 25 mg by mouth every 8 hours as needed. Omeprazole Magnesium (PRILOSEC OTC) 20 mg tablet Take 2 tablets by mouth once daily. ibuprofen (MOTRIN) 200 mg tablet Take 200 mg by mouth every 6 hours as needed. No current facility-administered medications for this visit. DTAP,TDAP,TD(1 - Tdap) Never done SHINGRIX VACCINE(1 of 2) Never done BONE DENSITY Never done EXAM: BP 130/62 Pulse 112 Resp 16 Wt 64.9 kg (143 lb) SpO2 97% BMI 25.33 kg/m Pleasant well appearing older adult woman in no acute distress. Alert and oriented all spheres. Normal affect and cognition. Speech normal. No deficits to learning or comprehension. Skin warm, dry, pink to lips and nailbeds. Normal turgor. Respirations regular and unlabored. HEENT: NCAT. No scleral icterus or conjunctival injection. TM's clear. Nose and oropharynx free from injection or lesion. Oral membranes moist and pink. No cervical lymph nodes. Thyroid non-tender, no masses, or enlargement. Carotids pulses 2+/4+ without bruits. No JVD with HOB at 30 degrees. Chest is normal shape, non-tender to palpation. Lungs are clear to all tse with good air exchange through out. HRRR without murmur or gallop. No lifts, heaves, or rubs. Chest is normal shape. Lungs are clear to all tse with good air exchange through out. Tenderness noted in left lateral neck posterior scalenes and upper trap. Extrem: no clubbing or cyanosis. Edema: none. Extremities are warm and pink with prompt capillary refill. Upper extremities are equal in bulk and tone. No evidence of swelling, injury or deformity. Fingers are warm, pink with prompt capillary refill. No thenar wasting. Full ROM fingers, hand grasp, wrist flexion, extension, side bending, elbow flexion, extension, supination, pronation. Shoulders with full flexion, extension, circumduction. No crepitus. Has full strength to finger intrinsics, hand grasp, wrist flexion, extension, elbow flexion, extension, supination and pronation. DTRs 2/4+ and symmetric biceps, triceps, and brachioradialis. Tinnel's sign is negative at the wrist, cubital outlet and ulnar groove. EKG: no changes from 11/08/2013 ASSESSMENT/PLAN: 1. Acute pain of left shoulder - ICD9: 719.41, ICD10: M25.512 (primary diagnosis) Suspect shoulder sx r/t somatic dysfunction Improved with myofascial release to TTPs 2. Numbness and tingling in left arm - ICD9: 782.0, ICD10: R20.0, R20.2 As above. Hx Lung cancer- see Dr. Cardona's notes, current stable nodules. No evidence of myoclonal gammopathy. 3. Stress reaction - ICD9: 308.9, ICD10: F43.0 Patient tearful, seems exhausted emotionally. Support given. Discussed reasons why jail use lorazepam is not in her best interest- has a few left. Recommend start low dose sertraline: reviewed medication administration, boxed warnings, side effects, weaning on cessation. She feels safer with lorazepam but agrees to a trial with sertraline Will need f/u in 4 weeks on progress and can communicate as need with me in the interim. 4. Chest tightness - ICD9: 786.59, ICD10: R07.89 Due to age and history she is at risk for cardiac stress. Former smoker, no FH heart disease or stroke. Normal echo 2019 and nuclear stress 2013 which is remote but for similar sx. EKG is WNL pending cardiology and I strongly suspect issues are anxiety and stress related. I will forward to Dr. Arteaga for his opinion on further cardiac testing as has complex history - ECG COMPLETE Inna Taylor PA-C documented in this encounter [facility] 05-28-2022 History of Present illness Narrative Diagnosis: 1) Stage IV NSCLC. HPI: The patient is a 77 yo female who was diagnosed with NSCLC. She was initially found to have a lung mass when undergoing work up for cough and acute left sided flank pain. CXR revealed a left lung mass and subsequent CT chest revealed left lung mass on 10/21/13. She was then referred to [facility] and underwent diagnostic bronchoscopy with transbronchial FNA that were completed on 11/04/13. Found to have an adenocarcinoma at 11L and the LLL mass. It was EGFR mutation negative and ALK translocation negative. Patient was then admitted to the hospital on 11/08/13 with complaints of acute onset hemiparesis with left-sided weakness of the arm and leg. MRI brain on 11/08/13 revealed a solitary right cystic/necrotic peripherally enhancing mass measuring 2.4 cm. She subsequently underwent a right-sided craniotomy and resection of brain tumor on 11/09/13. Then received SRS. Underwent further evaluation with mediastinal lymph node evaluation--negative. She underwent EGD and colonoscopy on 11/24/2018. On the EGD portion of the exam, she was noted to have normal appearing mucosa of the esophagus, stomach as well as the first and second portions of the duodenum. On colonoscopy a 3-6 mm polyp was identified in the cecum and removed with cold biopsy forceps. There were nonbleeding external and internal hemorrhoids noted. Hemorrhoid banding was performed. Pathology demonstrated the polyp to have active inflammation consistent with an inflammatory polyp. Previous therapy: 1) Right-sided craniotomy and resection of brain tumor on 11/09/13 followed by SRS. 2) Carboplatin/Alimta x5 cycles. 3) Completed radiation to left lung 08/30/2014. Received 6600 cGy in 33 fractions. 4) Maintenance Alimta x16 cycles. PD. Current therapy: 1) Nivolumab since September 2015 in complete remission Presents for ongoing management. Interim history: She offers no complaints today. She has not had any pulmonary symptoms including cough, sputum production, wheezing or shortness of breath at rest or with exertion. No chest pain. Occasionally gets a fleeting pain in the left flank but this has been chronic and not persistent. No headaches other than she will get tension headache that starts in the trapezius muscles bilaterally and extends into the occiput. She attributes this to stress in helping care for her at home who has advanced COPD and recently developed a foot ulcer presumably from peripheral artery disease. Her energy level overall is doing well. She has no subjective side effect from immunotherapy. PMH, medications and allergies as below personally reviewed by me today. Any changes documented in appropriate section. ROS: Constitutional: Denies episodes of fever and night sweats. Neuro: See above. HEENT: No recent change in voice or hearing. RESP: See above. CVS: No PND or orthopnea. No lower extremity swelling/edema. GI: Denies dysgeusia. Denies symptoms of stomatitis. Denies dysphagia and odynophagia. Denies reflux and abdominal pain. : Denies dysuria or gross hematuria. No symptoms of bladder outlet obstruction. Endo: Denies hot flashes. Denies polyuria and polydipsia. Denies heat and cold intolerance. Derm: Denies jaundice and diffuse pruritis. Heme: Denies unusual bleeding and unexplained bruising. Psych: Normal mood. PHYSICAL EXAM: VITALS: Blood pressure (P) 131/58, pulse (P) 91, temperature (P) 36.7 C (98 F), resp. rate (P) 14, weight 65.3 kg (144 lb), SpO2 (P) 97 %. Well-appearing and in no acute distress. The sclera are anicteric bilaterally. No ptosis of left eye. Ocular motor test does not reveal any lag of the left eye. NECK: Supple. LYMPHATIC: There is no palpable cervical or supraclavicular adenopathy. RESPIRATORY: Inspiratory breath sounds are of diminished intensity in all tse. No longer can appreciate inspiratory squeak/rub at the left base. No rales, wheezes or rhonchi. CARDIOVASCULAR: Rhythm is regular. ABDOMEN: The abdomen is nondistended. No organomegaly. No tenderness. Extremities: No swelling or edema. SKIN: No jaundice or rash. NEUROLOGIC: No focal motor weakness of the extremities. LABS: Component Latest Ref Rng & Units 05/28/2022 Protein, Total 6.3 - 8.0 g/dL 6.3 Albumin 3.9 - 4.9 g/dL 4.1 Calcium 8.5 - 10.2 mg/dL 8.9 Bilirubin, Total 0.2 - 1.3 mg/dL 0.3 Alkaline Phosphatase 34 - 123 U/L 88 AST 13 - 35 U/L 16 ALT 7 - 38 U/L 9 Glucose 74 - 99 mg/dL 92 BUN 7 - 21 mg/dL 15 Creatinine 0.58 - 0.96 mg/dL 0.84 Sodium 136 - 144 mmol/L 137 Potassium 3.7 - 5.1 mmol/L 4.0 Chloride 97 - 105 mmol/L 98 CO2 22 - 30 mmol/L 29 Anion Gap 9 - 18 mmol/L 10 eGFR >=60 mL/min/1.73m 72 ASSESSMENT/PLAN: (162.9) Adenocarcinoma of lung, stage 4, left (HCC) (primary encounter diagnosis) Comment: -KPS is 100%. -Continues to tolerate therapy well. -Recurrence of diplopia which is now appreciated all the time. Previously just at night when watching TV. -Paraneoplastic antibody panel negative. -No evidence of MG. -She remains asymptomatic from her metastatic non-small cell lung cancer. No respiratory symptoms. -We again discussed duration of therapy. The best data for her situation comes from the Checkmate 153 safety trial. That study suggested continuing treatment beyond 1 year led to an improvement in progression free and overall survival. However, given her long progression free interval now over 6 years, I [facility] Plan: -Continue nivolumab. -CTs in July. 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 Then received SRS. -Neurologically stable Plan: -Repeat MRI brain per neurosurgery in June 2022. Portions of this documentation were copied and pasted from previous office visit notes in order to provide a cohesive continuity of the history. The note has been reviewed, edited and updated as necessary. I spent 30 minutes in the visit, with more than 50% of the total [id number] time of the visit in reviewing test results, plan of care and coordination of care Mario Cardona DO Cc: MD Ashley Isaac MD documented in this encounter [facility] 04-28-2022 Miscellaneous Notes Left message for pt requesting she come in at 1:30 for appt tomorrow. documented in this encounter [facility] 04-07-2022 History of Present illness Narrative Chief Complaint Patient presents with: Establish Care HPI Jenise Bullock is a 77 year old female who presents here today to Establish Care. Former pt of Dr. Nikhil Polk who's retired who's here today to become established. Pt here today with her spouse, who's also an established pt. Pt generally followed with previous PCP when needed. GI/Uro - Repeat flare ups of cystitis, 3 this year. Most recently seen at [facility] on 03/27/22 with urinary complaints. Pt urine + Leuks and pt was given Bactrim DS 1 tab po bid for 10 days. This has since improved, no issues. No stomach or bowel issues. URI - Pt seen in [facility] on 03/21/22 due to URI symptoms. Tested negative for Covid. Reports she was advised to use Mucinex and Tessalon Pearles but this has not completely resolved. Continues to have congestion and drainage, decreased head pressure. Due to her drainage this is causing GI upset, asking what she needs to do. Recommended Flonase. GERD - Takes Prilosec 20 mg OTC 2 tabs po once daily. Stable on this regimen. Cardio - Pt recently seen in [facility] for UTI and was noted to be tachycardic, HR 110 and irregular. Pt was referred to ED for an EKG and evaluation, this was normal. Pt reports that she's had no previous cardiac issues or been on medications in the past. ANALY - Taking Ativan 1 mg prn for anxiety. This has been Rx'd by Hem/Onc. Anemia - Per Dr. Cardona, recommends an Iron tablet every other day. Hem/Onc - Follows with [facility], Dr. Cardona for brain metastasis and left lung cancer. Recently seen on 04/01/[address] Joseph. Receiving infusions . Symptoms started in 2013 when she was undergoing work up for cough and acute left sided flank pain. CXR revealed a left lung mass and subsequent CT chest revealed left lung mass on 10/21/13. [facility] and [facility] diagnostic bronchoscopy with transbronchial FNA that were completed on 11/04/13. Found to have an adenocarcinoma at 11L and the LLL mass. Patient was then admitted to the hospital on 11/08/13 with complaints of acute onset hemiparesis with left-sided weakness of the arm and leg. MRI brain on 11/08/13 revealed a solitary right cystic/necrotic peripherally enhancing mass measuring 2.4 cm. She subsequently underwent a right-sided craniotomy and resection of brain tumor on 11/09/13. Then received SRS. Pt overall doing well at this time. Asking about hair loss. Seems to be losing more. HM - Declines Hep C screening. Adv Dir/Living will scanned into chart. Denies feeling depressed. Pt denies doing too much screening marquez. Past medical history, appointments, medications, allergies reviewed. 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) Snoring Previous Surgical History PAST SURGICAL HISTORY Procedure Laterality Date BRONCHOSCOPY 11/04/13 COLONOSCOPY FLX DX W/COLLJ SPEC WHEN PFRMD 11/24/2018 Colonoscopy ESOPHAGOGASTRODUODENOSCOPY TRANSORAL DIAGNOSTIC 11/24/2018 EGD EXPLORE CRANIOTOMY 11/09/13 right sided resection of brain tumor INSJ TUNNELED CTR VAD W/SUBQ PORT AGE 5 YR/> Right 08/13/2016 subclavian PAST SURGICAL HISTORY OF 1993 right axillary cyst removed PAST SURGICAL HISTORY OF 1962 lymph node removed from back of neck while in high school SALPINGO-OOPHORECTOMY COMPL/PRTL UNI/BI SPX 1982 TONSILLECTOMY HX Family History FAMILY HISTORY Problem Relation Age of Onset Cancer Mother unk other (parkinson's disease) Father other (myasthenia gravis) Maternal Grandmother Cancer Maternal Grandfather throat Diabetes Paternal Grandmother Cancer Paternal Grandfather colo-rectal Cancer Brother bladder Cancer Paternal Uncle leukemia Cancer Paternal Aunt lung Patient Allergies ALLERGIES Allergen Reactions Penicillins Intolerance Current Medications Current Outpatient Medications on File Prior to Visit Medication Sig multivitamin tablet Take 1 tablet by mouth once daily. sulfamethoxazole-trimethoprim (BACTRIM DS,SEPTRA DS) 800-160 mg per tablet Take 1 tablet by mouth q 12 HR. LORazepam (ATIVAN) 1 mg tablet Take 1 tablet by mouth every 8 hours as needed for up to 14 days. acetaminophen (TYLENOL) 500 mg tablet Take 1,000 mg by mouth every 8 hours as needed. diphenhydrAMINE (BENADRYL) 25 mg tablet Take 25 mg by mouth every 8 hours as needed. Omeprazole Magnesium (PRILOSEC OTC) 20 mg tablet Take 2 tablets by mouth once daily. ibuprofen (MOTRIN) 200 mg tablet Take 200 mg by mouth every 6 hours as needed. Current Facility-Administered Medications on File Prior to Visit Medication nivolumab 400 mg in NaCl 0.9% 100 mL (OPDIVO) NaCl 0.9% iv infusion diphenhydrAMINE 50 mg injection (BENADRYL) hydrocortisone sodium succinate (PF) 100 mg injection (Solu-CORTEF) meperidine (PF) 25 mg injection (DEMEROL) Social History Social History Tobacco Use Smoking status: Former Packs/day: 1.00 Years: 48.00 Pack years: 48.00 Types: Cigarettes Start date: 11/01/1964 Quit date: 10/24/2013 Years since quittin.4 Smokeless tobacco: Never Tobacco comments: Pt smoked one pack a week on & off for 48 years, had quit four times in the past. Vaping Use Vaping Use: Never used Substance Use Topics Alcohol use: Yes Alcohol/week: 2.5 standard drinks Types: 1 Glasses of Wine (5oz) per week Comment: Occasionally Drug use: No EXAM: BP 116/68 (BP Site: Left Arm, BP Position: Sitting, BP Cuff Size: Regular Adult) Pulse 72 Resp 16 Ht 160 cm (5' 3 ) Wt 66.1 kg (145 lb 12.8 oz) BMI 25.83 kg/m General Appearance: Well appearing, alert, in no acute distress, well-hydrated, well nourished.. Neck: Supple, no adenopathy; thyroid symmetric, normal size, no bruits. Lungs: Lungs clear to auscultation. No wheezing, rhonchi, rales.. Heart: RRR without murmur, gallop, or rubs. No ectopy. Health Maintenance List HEPATITIS C SCREENING Never done DTAP,TDAP,TD(1 - Tdap) Never done SHINGRIX VACCINE(1 of 2) Never done BONE DENSITY Never done ADVANCE DIRECTIVE DISCUSSION Never done DEPRESSION ASSESSMENT Never done DIABETES SCREEN due on 03/27/2025 INFLUENZA Completed COVID-19 VACCINE Completed PNEUMOCOCCAL: 65+ Completed Data reviewed Epic ASSESSMENT/PLAN: 1. Encounter to establish care - ICD9: V65.8, ICD10: Z76.89 (primary diagnosis) - Established. Follow up annually and prn. 2. Gastroesophageal reflux disease, unspecified whether esophagitis present - ICD9: 530.81, ICD10: K21.9 - Stable on current regimen 3. Anxiety neurosis - ICD9: 300.00, ICD10: F41.1 - Stable with prn use of Ativan, Rx'd by Dr. Cradona 4. Primary malignant neoplasm of left lung (HCC) - ICD9: 162.9, ICD10: C34.92 - Cont f/u with Hem/Onc 5. Brain metastasis (HCC) - ICD9: 198.3, ICD10: C79.31 - Cont f/u with Hem/Onc 6. Iron malabsorption - ICD9: 579.8, ICD10: K90.9 - Take Rx every other day 7. Nasal sinus congestion - ICD9: 478.19, ICD10: R09.81 - Discussed using Flonase or OTC antihistamine to help with congestion. Follow up Annually and prn. I agree with the Chief Complaint, ROS, and Past Histories independently gathered by the clinical family readiness support assistant and the remaining scribed note accurately describes my personal service to the patient. Medical Decision Making: Problems: Moderate: 2+ stable chronic illnesses Risk: Moderate: Drug management Medical Decision Making Level: 4 - Moderate Elaine Arteaga MD The documentation for this note was completed by Joan Mccracken Ma acting as scribe for Elaine Arteaga MD. April 07, 2022 2:50 PM. Joan Mccracken Ma documented in this encounter [facility] 03-27-2022 Miscellaneous Notes Pt notified, will go to the ER. Has appt to establish care with Dr. Arteaga 04/07/22 Brigitte Loyola Ma Noted; agree with ER for immediate EKG and evaluation Elaine Arteaga MD Nurse Practitioner with [facility] calls to report that patient is there being seen for UTI symptoms and HR is running around 110 and irregular. Wanting patient to have an EKG right away. Patient is not established with Dr. Arteaga's office. Notified that patient would need to go to ED for immediate treatment and then would need to call back to establish care with a provider. OV note from 03/21/2021 notes patient isn't an established patient of Dr. Arteaga but chart is marked with Dr. Arteaga as PCP. Please review. Herlinda Claudio RN documented in this encounter [facility] 03-27-2022 History of Present illness Narrative Radiology Service Progress Note PATIENT NAME: Jenise Bullock DATE OF SERVICE: March 27, 2022 TIME: 1:43 PM PATIENT IDENTITY VERIFICATION COMPLETED USING TWO (2) IDENTIFIERS: Name and Date of confirmed by patient verbally. FALL SCREENING: Has the patient had 2 falls in the last year or 1 fall with injury or currently using an Ambulatory Assistive Device (Walker, Cane, Wheelchair, Crutches, etc.)? No PATIENT GENDER DATA: Female. status: : No status: NO. PATIENT RELEVANT IMPLANT DATA REVIEWED: Yes RADIOLOGY DEPARTMENT: CT; Exam(s) Completed: Chest Abdomen Pelvis PERIPHERAL IV DATA: power port accessed by hemoc SIGNED BY: RT Fernando(R) March 27, 2022 1:43 PM documented in this encounter [facility] 03-27-2022 History of Present illness Narrative Patient is here for IVAD port flush/blood draw per [facility] protocol. IVAD is located in right upper chest. Site cleansed with Chloraprep IVAD accessed with a #20 gauge 3/4 non-coring Gripper needle Flush with 5cc's Normal Saline. Blood Return: Good. 10 cc's blood aspirated and discarded. Blood drawn for CBC and CMP. Flushed with: 20 ml Normal Saline. Non-coring needle left intact for further therapy. Opsite applied to puncture site. Site negative for redness, edema or tenderness. Patient tolerated procedure well. documented in this encounter [facility] 02-07-2022 Miscellaneous Notes Patient has been identified by name and date of : Yes Requested Prescriptions Pending Prescriptions Disp Refills LORazepam (ATIVAN) 1 mg tablet 30 tablet 0 Sig: Take 1 tablet by mouth every 8 hours as needed for up to 14 days. RX INSTRUCTIONS: Patient aware RX will be sent to pharmacy. No need to notify patient. Amy Oliveira LPN documented in this encounter [facility] 01-09-2022 Miscellaneous Notes Spoke with pt. Instructed to try taking OTC Ferrous sulfate 325 mg every other day. Will recheck iron levels and ferratin at next visit if iron not improving will do another course of iron sucrose. Pt. Voiced understanding. Amy Oliveira LPN Her iron is starting to get low again. I would like her to try taking OTC ferrous sulfate 325 mg tablet once every other day. We will recheck iron studies and ferritin at the time of her next lab. If iron not improving on oral replacement, then we can schedule her for another course of iron sucrose. Mario Cardona DO documented in this encounter [facility] 01-07-2022 Miscellaneous Notes Spoke to Dalila in lab she had enough blood and will add those to todays labs. Ask the lab to add iron studies to today's lab work. Mario Cardona DO documented in this encounter [facility] 12-10-2021 History of Present illness Narrative documented in this encounter [facility] 09-17-2021 History of Present illness Narrative Chief Complaint Patient presents with: Established Patient HPI: Jenise Bullock is a 76 year old female who presents here today for evaluation for treatment today. Per Dr. Cardona's previous note: H/o diagnosed with NSCLC. She was initially found to have a lung mass when undergoing work up for cough and acute left sided flank pain. CXR revealed a left lung mass and subsequent CT chest revealed left lung mass on 10/21/13. She was then referred to [facility] and underwent diagnostic bronchoscopy with transbronchial FNA that were completed on 11/04/13. Found to have an adenocarcinoma at 11L and the LLL mass. It was EGFR mutation negative and ALK translocation negative. Patient was then admitted to the hospital on 11/08/13 with complaints of acute onset hemiparesis with left-sided weakness of the arm and leg. MRI brain on 11/08/13 revealed a solitary right cystic/necrotic peripherally enhancing mass measuring 2.4 cm. She subsequently underwent a right-sided craniotomy and resection of brain tumor on 11/09/13. Then received SRS. Underwent further evaluation with mediastinal lymph node evaluation--negative. She underwent EGD and colonoscopy on 11/24/2018. On the EGD portion of the exam, she was noted to have normal appearing mucosa of the esophagus, stomach as well as the first and second portions of the duodenum. On colonoscopy a 3-6 mm polyp was identified in the cecum and removed with cold biopsy forceps. There were nonbleeding external and internal hemorrhoids noted. Hemorrhoid banding was performed. Pathology demonstrated the polyp to have active inflammation consistent with an inflammatory polyp. Previous therapy: 1) Right-sided craniotomy and resection of brain tumor on 11/09/13 followed by SRS. 2) Carboplatin/Alimta x5 cycles. 3) Completed radiation to left lung 08/30/2014. Received 6600 cGy in 33 fractions. 4) Maintenance Alimta x16 cycles. PD. Current therapy: 1) Nivolumab. No new concerns today. Appetite: Too good. Wt. stable. Energy level: Eh. Ok. Denies fevers or recent illness. Resp:denies cough or sob Cardiac:denies chest pain/palpitations GI:denies abd pain, n/v, moving bowels regularly :denies dysuria/hematuria Extrem:denies pain Neuro:denies symptoms of neuropathy Skin:denies rashes/lesions Heme:denies bleeding The ROS is otherwise negative. Past medical history, appointments, medications, allergies reviewed. No changes. EXAM: BP 123/56 Pulse 69 Temp 36.9 C (98.4 F) Wt 70.8 kg (156 lb) SpO2 97% BMI 27.63 kg/m APPEARANCE Well appearing, alert, in no acute distress, well-hydrated, well nourished. HEART RRR with normal S1 and S2, no murmurs LUNG clear to auscultation LYMPH NODES No cervical lymphadenopathy, No supraclavicular lymphadenopathy and No axillary lymphadenopathy. ABDOMEN bowel sounds normoactive, soft, non-tender, non-distended, without organomegaly or palpable masses EXTREMITIES No edema NEURO Awake, alert and oriented x 3, Normal gait and No involuntary motions. SKIN Skin color, texture, turgor normal, no suspicious rashes or lesions LABS: Component Latest Ref Rng & Units 07/23/2021 08/20/2021 09/17/2021 WBC 3.70 - 11.00 k/uL 5.21 5.36 5.22 RBC 3.90 - 5.20 m/uL 4.61 4.63 4.64 Hemoglobin 11.5 - 15.5 g/dL 12.2 12.2 12.3 Hematocrit 36.0 - 46.0 % 38.8 38.5 38.3 MCV 80.0 - 100.0 fL 84.2 83.2 82.5 MCH 26.0 - 34.0 pg 26.5 26.3 26.5 MCHC 30.5 - 36.0 g/dL 31.4 31.7 32.1 RDW-CV 11.5 - 15.0 % 13.2 13.3 13.4 Platelet Count 150 - 400 k/uL 292 291 277 MPV 9.0 - 12.7 fL 11.1 11.1 10.9 Neut% % 72.3 75.6 72.8 Abs Neut (ANC) 1.45 - 7.50 k/uL 3.75 4.05 3.80 Lymph% % 16.7 14.9 15.3 Abs Lymph 1.00 - 4.00 k/uL 0.87 (L) 0.80 (L) 0.80 (L) [place]% % 7.[address] [place] <0.87 k/uL 0.40 0.36 0.41 Eosin% % 2.1 1.5 2.7 Abs Eosin <0.46 k/uL 0.11 0.08 0.14 Baso% % 1.2 0.9 1.1 Abs Baso <0.11 k/uL 0.06 0.05 0.06 Immature Gran % % 0.4 0.2 IMMATURE GRANS (ABS) <0.10 k/uL <0.03 <0.03 NRBC /100 WBC 0.0 0.0 Absolute nRBC <0.01 k/uL <0.01 <0.01 <0.01 DTYPE Auto Auto Nucleated Reds 0 /100 WBC 0.0 Diff Type Auto Diff CMP/TSH/Cortisol: Pending RADIOLOGY: CT chest 09/11/21: IMPRESSION: Stable posttreatment appearance of the chest. No developing new mass or adenopathy CT abd/pelvis 09/11/21: IMPRESSION: No developing suspicious mass or adenopathy within the abdomen or pelvis Stable bilateral adrenal nodules ASSESSMENT/PLAN: 1. Malignant neoplasm of unspecified part of unspecified bronchus or lung (HCC) - ICD9: 162.9, ICD10: C34.90 (primary diagnosis) 2. Brain metastasis (HCC) - ICD9: 198.3, ICD10: C79.[address] Cardona's previous note 07/23/21: KPS is 90%. -Continues to tolerate therapy well. -Discussed plan to obtain repeat imaging may be PET scan based on those imaging results with thought of holding on therapy since she has done so well for several years on immunotherapy. -Advised Pfizer booster vaccination. -Recurrence of diplopia which is now appreciated all the time. Previously just at night when watching TV. Discussed potential of paraneoplastic syndrome versus side effect from immunotherapy. -Paraneoplastic antibody panel negative. -No evidence of MG. Plan: -Continue nivolumab. -Continue prism glasses. -Scans August. 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 Then received SRS. Plan: -Repeat MRI brain per neurosurgery. (D50.9) Iron deficiency anemia, unspecified iron deficiency anemia type Assessment: -Previously secondary to hemorrhoidal bleeding. -Still has occasional hemorrhoidal bleeding although less frequent than previously. -Aspirin stopped. Plan: -Monitor iron. - Tolerating Opdivo well. - Reviewed CBC/CT's with pt. - CMP/TSH/Cortisol pending. - MRI brain per neurosurg. - Proceed as scheduled for Opdivo today pending all labs. - Follow up as scheduled. - Pt. aware to call office with any questions/concerns. The patient indicates understanding of these issues and agrees with the plan. All documentation from previous visit of 07/23/21-Dr. Cardona was copied and pasted, documentation has been reviewed and edited as necessary for today's visit. Maribel Heller APRN.CNP documented in this encounter [facility] documented as of this encounter (statuses as of 09/18/2021) [facility] History of Past illness Narrative* Problem Noted Date Resolved Date Adenocarcinoma of lung, stage 4 11/30/2013 10/08/2016 documented as of this encounter (statuses as of 10/06/2021) [facility] of Past illness Narrative* Problem Noted Date Resolved Date Adenocarcinoma of lung, stage 4 11/30/2013 10/08/2016 documented as of this encounter (statuses as of 10/15/2021) [facility] Narrative* Problem Noted Date Resolved Date Adenocarcinoma of lung, stage 4 11/30/2013 10/08/2016 documented as of this encounter (statuses as of 11/12/2021) [facility] Narrative* Problem Noted Date Resolved Date Adenocarcinoma of lung, stage 4 11/30/2013 10/08/2016 documented as of this encounter (statuses as of 12/10/2021) [facility] Narrative* Problem Noted Date Resolved Date Adenocarcinoma of lung, stage 4 11/30/2013 10/08/2016 documented as of this encounter (statuses as of 01/07/2022) [facility] Narrative* Problem Noted Date Resolved Date Adenocarcinoma of lung, stage 4 11/30/2013 10/08/2016 documented as of this encounter (statuses as of 01/07/2022) [facility] N[facility]ative* Problem Noted Date Resolved Date Adenocarcinoma of lung, stage 4 11/30/2013 10/08/2016 documented as of this encounter (statuses as of 01/09/2022) [facility] Narrative* Problem Noted Date Resolved Date Adenocarcinoma of lung, stage 4 11/30/2013 10/08/2016 documented as of this encounter (statuses as of 02/07/2022) [facility] N[facility]ative* Problem Noted Date Resolved Date Adenocarcinoma of lung, stage 4 11/30/2013 10/08/2016 documented as of this encounter (statuses as of 03/27/2022) [facility]* Problem Noted Date Resolved Date Adenocarcinoma of lung, stage 4 11/30/2013 10/08/2016 documented as of this encounter (statuses as of 03/27/2022) [facility] Narrative* Problem Noted Date Resolved Date Adenocarcinoma of lung, stage 4 11/30/2013 10/08/2016 documented as of this encounter (statuses as of 2022) [facility] Narrative* Problem Noted Date Resolved Date Adenocarcinoma of lung, stage 4 11/30/2013 10/08/2016 documented as of this encounter (statuses as of 04/03/2022) [facility] N[facility]* Problem Noted Date Resolved Date Adenocarcinoma of lung, stage 4 11/30/2013 10/08/2016 documented as of this encounter (statuses as of 04/07/2022) [facility] N[facility]* Problem Noted Date Resolved Date Adenocarcinoma of lung, stage 4 11/30/2013 10/08/2016 documented as of this encounter (statuses as of 05/12/2022) [address] History of Past illness Narrative* Problem Noted Date Resolved Date Adenocarcinoma of lung, stage 4 11/30/2013 10/08/2016 documented as of this encounter (statuses as of 05/28/2022) [facility]* Problem Noted Date Resolved Date Adenocarcinoma of lung, stage 4 11/30/2013 10/08/2016 documented as of this encounter (statuses as of 05/28/2022) [facility] Narrative* Problem Noted Date Resolved Date Adenocarcinoma of lung, stage 4 11/30/2013 10/08/2016 documented as of this encounter (statuses as of 06/24/2022) [facility]* Problem Noted Date Resolved Date Adenocarcinoma of lung, stage 4 11/30/2013 10/08/2016 documented as of this encounter (statuses as of 06/27/2022) [facility]* Problem Noted Date Resolved Date Adenocarcinoma of lung, stage 4 11/30/2013 10/08/2016 documented as of this encounter (statuses as of 07/19/2022) [facility] Narrative* Problem Noted Date Resolved Date Adenocarcinoma of lung, stage 4 11/30/2013 10/08/2016 documented as of this encounter (statuses as of 07/21/2022) [facility] Narrative* Problem Noted Date Resolved Date Adenocarcinoma of lung, stage 4 11/30/2013 10/08/2016 documented as of this encounter (statuses as of 07/23/2022) [facility] Narrative* Problem Noted Date Resolved Date Adenocarcinoma of lung, stage 4 11/30/2013 10/08/2016 documented as of this encounter (statuses as of 07/24/2022) [facility] N[facility]* Problem Noted Date Resolved Date Adenocarcinoma of lung, stage 4 11/30/2013 10/08/2016 documented as of this encounter (statuses as of 08/13/2022) [address] History of Past illness Narrative* Problem Noted Date Resolved Date Adenocarcinoma of lung, stage 4 11/30/2013 10/08/2016 documented as of this encounter (statuses as of 08/18/2022) [facility]* Problem Noted Date Resolved Date Adenocarcinoma of lung, stage 4 11/30/2013 10/08/2016 documented as of this encounter (statuses as of 08/20/2022) [facility]* Problem Noted Date Resolved Date Adenocarcinoma of lung, stage 4 11/30/2013 10/08/2016 documented as of this encounter (statuses as of 08/20/2022) [facility]* Problem Noted Date Resolved Date Adenocarcinoma of lung, stage 4 11/30/2013 10/08/2016 documented as of this encounter (statuses as of 08/22/2022) [facility]arr[facility]* Problem Noted Date Resolved Date Adenocarcinoma of lung, stage 4 11/30/2013 10/08/2016 documented as of this encounter (statuses as of 09/17/2022) [facility]* Problem Noted Date Resolved Date Adenocarcinoma of lung, stage 4 11/30/2013 10/08/2016 documented as of this encounter (statuses as of 09/17/2022) [facility]* Problem Noted Date Resolved Date Adenocarcinoma of lung, stage 4 11/30/2013 10/08/2016 documented as of this encounter (statuses as of 10/10/2022) [facility] Narrative* Problem Noted Date Resolved Date Adenocarcinoma of lung, stage 4 11/30/2013 10/08/2016 documented as of this encounter (statuses as of 10/13/2022) [facility]* Problem Noted Date Resolved Date Adenocarcinoma of lung, stage 4 11/30/2013 10/08/2016 documented as of this encounter (statuses as of 10/16/2022) [facility] Narr[facility]* Problem Noted Date Resolved Date Adenocarcinoma of lung, stage 4 11/30/2013 10/08/2016 documented as of this encounter (statuses as of 10/20/2022) [facility] Narrative* Problem Noted Date Resolved Date Adenocarcinoma of lung, stage 4 11/30/2013 10/08/2016 documented as of this encounter (statuses as of 10/24/2022) [facility]* Problem Noted Date Resolved Date Adenocarcinoma of lung, stage 4 11/30/2013 10/08/2016 documented as of this encounter (statuses as of 12/10/2022) [facility]* Problem Noted Date Resolved Date Adenocarcinoma of lung, stage 4 11/30/2013 10/08/2016 documented as of this encounter (statuses as of 12/15/2022) [facility]* Problem Noted Date Resolved Date Adenocarcinoma of lung, stage 4 11/30/2013 10/08/2016 documented as of this encounter (statuses as of 12/15/2022) [facility]* Problem Noted Date Diagnosed Date Resolved Date Adenocarcinoma of lung, stage 4 11/30/2013 10/08/2016 documented as of this encounter (statuses as of 01/20/2023) [facility]* Problem Noted Date Diagnosed Date Resolved Date Adenocarcinoma of lung, stage 4 11/30/2013 10/08/2016 documented as of this encounter (statuses as of 01/21/2023) [facility]* Problem Noted Date Diagnosed Date Resolved Date Adenocarcinoma of lung, stage 4 11/30/2013 10/08/2016 documented as of this encounter (statuses as of 01/26/2023) [facility]* Problem Noted Date Diagnosed Date Resolved Date Adenocarcinoma of lung, stage 4 11/30/2013 10/08/2016 documented as of this encounter (statuses as of 03/10/2023) [facility] Narr[facility]* Problem Noted Date Diagnosed Date Resolved Date Adenocarcinoma of lung, stage 4 11/30/2013 10/08/2016 documented as of this encounter (statuses as of 04/10/2023) [facility]* Problem Noted Date Diagnosed Date Resolved Date Adenocarcinoma of lung, stage 4 11/30/2013 10/08/2016 documented as of this encounter (statuses as of 04/26/2023) [facility] Narr[facility]* Problem Noted Date Diagnosed Date Resolved Date Adenocarcinoma of lung, stage 4 11/30/2013 10/08/2016 documented as of this encounter (statuses as of 04/26/2023) [facility]* Problem Noted Date Diagnosed Date Resolved Date Adenocarcinoma of lung, stage 4 11/30/2013 10/08/2016 documented as of this encounter (statuses as of 04/26/2023) [facility]* Problem Noted Date Diagnosed Date Resolved Date Adenocarcinoma of lung, stage 4 11/30/2013 10/08/2016 documented as of this encounter (statuses as of 04/26/2023) [facility]* Problem Noted Date Diagnosed Date Resolved Date Adenocarcinoma of lung, stage 4 11/30/2013 10/08/2016 documented as of this encounter (statuses as of 05/22/2023) [facility]* Problem Noted Date Diagnosed Date Resolved Date Adenocarcinoma of lung, stage 4 11/30/2013 10/08/2016 documented as of this encounter (statuses as of 05/26/2023) [facility]* Problem Noted Date Diagnosed Date Resolved Date Adenocarcinoma of lung, stage 4 11/30/2013 10/08/2016 documented as of this encounter (statuses as of 05/26/2023) [facility]* Problem Noted Date Diagnosed Date Resolved Date Adenocarcinoma of lung, stage 4 11/30/2013 10/08/2016 documented as of this encounter (statuses as of 05/26/2023) [facility]* Problem Noted Date Diagnosed Date Resolved Date Adenocarcinoma of lung, stage 4 11/30/2013 10/08/2016 documented as of this encounter (statuses as of 06/02/2023) [facility]* Problem Noted Date Diagnosed Date Resolved Date Adenocarcinoma of lung, stage 4 11/30/2013 10/08/2016 documented as of this encounter (statuses as of 06/02/2023) [facility] Malignant neoplasm of unspecified part of unspecified bronchus or lung (HCC)- Primary Brain metastasis (HCC) Secondary malignant neoplasm of brain and spinal cord [facility] Primary malignant neoplasm of left lung (HCC)- Primary Brain metastasis (HCC) Secondary malignant neoplasm of brain and spinal cord Acquired hypothyroidism Unspecified hypothyroidism Iron deficiency anemia due to chronic blood loss 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 [facility] Primary malignant neoplasm of left lung (HCC)- Primary 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 [facility] Primary malignant neoplasm of left lung (HCC)- Primary Brain metastasis (HCC) Secondary malignant neoplasm of brain and spinal cord Acquired hypothyroidism Unspecified hypothyroidism Iron deficiency anemia due to chronic blood loss 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 [facility] Iron deficiency anemia due to chronic blood loss- Primary Iron deficiency anemia secondary to blood loss (chronic) [facility] Primary malignant neoplasm of left lung (HCC)- Primary Brain metastasis (HCC) Secondary malignant neoplasm of brain and spinal cord Acquired hypothyroidism Unspecified hypothyroidism Iron deficiency anemia due to chronic blood loss 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 [facility] Malignant neoplasm of unspecified part of unspecified bronchus or lung (HCC) Brain metastasis (HCC) Secondary malignant neoplasm of brain and spinal cord Anxiety neurosis Anxiety state, unspecified [facility] Primary malignant neoplasm of left lung (HCC)- Primary Brain metastasis (HCC) Secondary malignant neoplasm of brain and spinal cord Acquired hypothyroidism Unspecified hypothyroidism Iron deficiency anemia due to chronic blood loss Iron deficiency anemia secondary to blood loss (chronic) [facility] Diagnosis Malignant neoplasm of unspecified part of unspecified bronchus or lung (HCC) [facility] Diagnosis Primary malignant neoplasm of left lung (HCC)- Primary 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 [facility] Diagnosis Encounter to establish care- Primary Other reasons for seeking consultation Gastroesophageal reflux disease, unspecified whether esophagitis present Anxiety neurosis Anxiety state, unspecified 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 (HCC) 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 Nasal sinus congestion Other diseases of nasal cavity and sinuses [facility] Diagnosis Primary malignant neoplasm of left lung (HCC)- Primary Brain metastasis (HCC) Secondary malignant neoplasm of brain and spinal cord [facility] Diagnosis 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 (HCC) Secondary malignant neoplasm of brain and spinal cord Acquired hypothyroidism Unspecified hypothyroidism Iron deficiency anemia due to chronic blood loss Iron deficiency anemia secondary to blood loss (chronic) [facility] Diagnosis Acute pain of left shoulder- Primary Numbness and tingling in left arm Disturbance of skin sensation Stress reaction Unspecified acute reaction to stress Chest tightness Other chest pain [facility] Diagnosis Primary malignant neoplasm of left lung (HCC)- Primary Brain metastasis (HCC) Secondary malignant neoplasm of brain and spinal cord Acquired hypothyroidism Unspecified hypothyroidism Iron deficiency anemia due to chronic blood loss 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 [facility] Diagnosis Primary malignant neoplasm of left lung (HCC)- Primary Brain metastasis (HCC) Secondary malignant neoplasm of brain and spinal cord Malaise and fatigue Other malaise and fatigue [facility] Diagnosis 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 (HCC) Secondary malignant neoplasm of brain and spinal cord Malaise and fatigue Other malaise and fatigue [facility] Diagnosis Low serum potassium level- Primary Stress reaction Unspecified acute reaction to stress Palpitations Numbness and tingling in left arm Disturbance of skin sensation Acute pain of left shoulder [facility] Diagnosis Primary malignant neoplasm of left lung (HCC)- Primary 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 [facility] Diagnosis Malignant neoplasm of unspecified part of unspecified bronchus or lung (HCC) 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 (HCC) Secondary malignant neoplasm of brain and spinal cord Lung mass Swelling, mass, or lump in chest [facility] Diagnosis Brain metastasis (HCC)- Primary 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 [facility] Diagnosis Palpitations- Primary Stress reaction Unspecified acute reaction to stress [facility] Diagnosis Abnormal PET scan of colon Nonspecific abnormal results of other specified function study NSCLC metastatic to brain (HCC) [facility] Diagnosis Primary malignant neoplasm of left lung (HCC)- Primary Brain metastasis (HCC) Secondary malignant neoplasm of brain and spinal cord Iron deficiency anemia due to chronic blood loss Iron deficiency anemia secondary to blood loss (chronic) Sensory neuropathy Unspecified hereditary and idiopathic peripheral neuropathy [facility] Diagnosis Primary malignant neoplasm of left lung (HCC)- Primary Brain metastasis (HCC) Secondary malignant neoplasm of brain and spinal cord Malaise and fatigue Other malaise and fatigue Sensory neuropathy Unspecified hereditary and idiopathic peripheral neuropathy [facility] Diagnosis Malignant neoplasm of sigmoid colon (HCC)- Primary Malignant neoplasm of sigmoid colon [facility] Diagnosis Small fiber neuropathy- Primary Unspecified hereditary and idiopathic peripheral neuropathy Paresthesias Disturbance of skin sensation [facility] Diagnosis Palpitations Stress reaction Unspecified acute reaction to stress [facility] Diagnosis Malignant neoplasm of unspecified part of unspecified bronchus or lung (HCC) Primary malignant neoplasm of left lung (HCC) Malignant neoplasm metastatic to brain (HCC) Secondary malignant neoplasm of brain and spinal cord Lung mass Swelling, mass, or lump in chest [facility] Primary malignant neoplasm of left lung (HCC)- Primary Malignant neoplasm metastatic to brain (HCC) Secondary malignant neoplasm of brain and spinal cord Malaise and fatigue Other malaise and fatigue [facility] Diagnosis Malignant neoplasm of unspecified part of unspecified bronchus or lung (HCC)- Primary 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 blood loss (chronic) Sensory neuropathy Unspecified hereditary and idiopathic peripheral neuropathy [facility] Diagnosis Abnormal PET scan of colon- Primary Nonspecific abnormal results of other specified function study [facility] Diagnosis Abnormal PET scan of colon- Primary Nonspecific abnormal results of other specified function study Malignant neoplasm of sigmoid colon (HCC) Malignant neoplasm of sigmoid colon [facility] Diagnosis Malignant neoplasm of unspecified part of unspecified bronchus or lung (HCC)- Primary [facility]* Diagnosis Malignant neoplasm of sigmoid colon (HCC)- Primary Malignant neoplasm of sigmoid colon [facility]* Diagnosis Need for influenza vaccination- Primary Need for prophylactic vaccination and inoculation against influenza [facility] Diagnosis Encounter for screening for malignant neoplasm of colon- Primary Special screening for malignant neoplasms, colon Abnormal PET scan of colon Nonspecific abnormal results of other specified function study Malignant neoplasm of sigmoid colon (HCC) Malignant neoplasm of sigmoid colon [facility] Diagnosis 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 Secondary malignant neoplasm of brain and spinal cord [facility] Diagnosis Brain metastasis Secondary malignant neoplasm of brain and spinal cord [facility] Diagnosis Encounter for screening for malignant neoplasm of colon- Primary Special screening for malignant neoplasms, colon Abnormal PET scan of colon Nonspecific abnormal results of other specified function study [facility]* Diagnosis Malignant neoplasm of unspecified part of unspecified bronchus or lung (HCC) Anxiety neurosis Anxiety state, unspecified Malignant neoplasm metastatic to brain (HCC) Secondary malignant neoplasm of brain and spinal cord [facility] Diagnosis Malignant neoplasm of unspecified part of unspecified bronchus or lung (HCC) 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 [facility] Malignant neoplasm of unspecified part of unspecified bronchus or lung (HCC)- Primary 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 Malignant neoplasm of sigmoid colon (HCC) Malignant neoplasm of sigmoid colon [facility] Diagnosis Primary malignant neoplasm of left lung (HCC)- Primary 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 blood loss (chronic) [facility] Diagnosis Malignant neoplasm of sigmoid colon (HCC)- Primary Malignant neoplasm of sigmoid colon Primary malignant neoplasm of left lung (HCC) Malignant neoplasm metastatic to brain (HCC) Secondary malignant neoplasm of brain and spinal cord Malaise and fatigue Other malaise and fatigue 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 blood loss (chronic) documented in this encounter [facility] for referral (narrative)* Outpatient Procedure (Routine) - Closed Specialty Diagnoses / Procedures Referred By Ranjit birch [facility] Diagnoses Chest tightness Procedures ECG COMPLETE ECG ROUTINE ECG W/LEAST 12 LDS W/I&R Inna Taylor PA-C [address] [place] [address] [facility] [address] [place] [address] Referral ID Status Reason Start Date Expiration Date V isits Requested Visits Authorized [id number] Closed Auto-Generate d Referral 06/17/2022 06/17/2023 1 1 [facility] for referral (narrative)* Diagnostic Procedure Only (Routine) - Closed Specialty Diagnoses / Procedures Referred By Ranjit birch Referred To Contact [facility] Diagnoses Malignant neoplasm of unspecified part of unspecified bronchus or lung (HCC) 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 (HCC) Lung mass Procedures NM PET/CT SKULL-THIGH INITIAL PET IMAGING CT ATTENUATION SKULL BASE MID-THIGH Mario Cardona DO [address] [facility] [address] [facility] [place] [address] [facility] [address] [place] [address] Referral ID Status Reason Start Date Expiration Date V isits Requested Visits Authorized [id number] Closed Auto-Generate d Referral 08/12/2022 09/11/2022 1 1 [facility] for referral (narrative)* Outpatient Procedure (Routine) - Pending Review Specialty Diagnoses / Procedures Referred By Contac t Referred To Contact [facility] Diagnoses Abnormal PET scan of colon Procedures COLONOSCOPY DIAGNOSTIC COLONOSCOPY FLX DX W/COLLJ SPEC WHEN Cleo Benton MD [address] [place] [address] [facility] [address] [place], [place] [id number] Referral ID Status Reason Start Date Expiration Date Visits Requested Visits Authorized [id number] Pending Review Auto-Generat ed Referral 08/19/2022 08/19/2023 1 1 [facility] for referral (narrative)* Diagnostic Procedure Only (Routine) - Closed Specialty Diagnoses / Procedures Referred By Contac t Referred To Contact [facility] Diagnoses Malignant neoplasm of unspecified part of unspecified bronchus or lung (HCC) 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 Lung mass Procedures NM PET/CT SKULL-THIGH SUBSEQUENT PET IMAGING CT ATTENUATION SKULL BASE MID-THIGH Mario Cardona DO [address] [facility] [address] [place] [address] [facility] [address] [place] [address] Referral ID Status Reason Start Date Expiration Date V isits Requested Visits Authorized [id number] Closed Auto-Generate d Referral 12/09/2022 01/08/2023 1 1 T [facility] for referral (narrative)* Diagnostic Procedure Only (Routine) - Pending Review Specialty Diagnoses / Procedures Referred By Ranjit birch Referred To Contact [facility] Diagnoses Malignant neoplasm of unspecified part of unspecified bronchus or lung (HCC) 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) Procedures NM PET/CT SKULL-THIGH SUBSEQUENT PET IMAGING CT ATTENUATION SKULL BASE MID-THIGH Mario Cardona DO [address] [place] [address] [facility] [address] [place] [address] Referral ID Status Reason Start Date Expiration Date Visits Requested Visits Authorized [id number] Pending Review Auto-Generat ed Referral 12/15/2022 01/14/2024 1 1 T [facility] for referral (narrative)* Outpatient Procedure (Routine) - Pending Review Specialty Diagnoses / Procedures Referred By Ranjit t Referred To Contact [facility] Diagnoses Abnormal PET scan of colon Malignant neoplasm of sigmoid colon (HCC) Procedures COLONOSCOPY DIAGNOSTIC COLONOSCOPY FLX DX W/COLLJ SPEC WHEN Artie Hendrickson MD [address] [place] [address] [facility] [address] [place] [id number] Referral ID Status Reason Start Date Expiration Date Visits Requested Visits Authorized [id number] Pending Review Auto-Generat ed Referral 01/20/2023 01/21/2024 1 1 T [facility] for referral (narrative)* Outpatient Procedure (Routine) - Closed Specialty Diagnoses / Procedures Referred By Ranjit birch Referred To Contact [facility] Diagnoses Abnormal PET scan of colon Malignant neoplasm of sigmoid colon (HCC) Procedures COLONOSCOPY DIAGNOSTIC COLONOSCOPY FLX DX W/COLLJ SPEC WHEN Artie Hendrickson MD [address] [place] [address] [facility] [address] [place] [address] Referral ID Status Reason Start Date Expiration Date V isits Requested Visits Authorized [id number] Closed Auto-Generate d Referral 02/12/2023 05/13/2023 1 1 [facility] for referral (narrative)* Outpatient Procedure (Routine) - Closed Specialty Diagnoses / Procedures Referred By Contac t Referred To Contact [facility] Diagnoses Abnormal PET scan of colon Procedures COLONOSCOPY DIAGNOSTIC COLONOSCOPY FLX DX W/COLLJ SPEC WHEN ALICIA Paul, Cleo Smart MD [address] [facility] [place] [place] [address] 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) Procedures NM PET/CT SKULL-THIGH SUBSEQUENT PET IMAGING CT ATTENUATION SKULL BASE MID-THIGH Mario Cardona DO [address] [place] [address] [facility] [address] [place] [address] Referral ID Status Reason Start Date Expiration Date V isits Requested Visits Authorized [id number] Closed Auto-Generate d Referral 05/25/2023 06/24/2023 1 1 [facility] for visit Narrative* Diagnostic Procedure Only (Routine) - Closed Specialty Diagnoses / Procedures Referred By Contac t Referred To Contact [facility] Diagnoses Brain metastasis (HCC) Procedures MRI BRAIN WO/W IVCON MRI BRAIN Ashley Gonzalez MD [address] [place] [address] [facility] Referral ID Status Reason Start Date Expiration Date Visits Re quested Visits Authorized [id number] Closed 07/08/2021 08/07/2021 1 1 [facility] for visit Narrative* Diagnostic Procedure Only (Routine) - Closed Specialty Diagnoses / Procedures Referred By Contac t Referred To Contact [facility] Diagnoses Malignant neoplasm of unspecified part of unspecified bronchus or lung (HCC) 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 (HCC) Lung mass Procedures NM PET/CT SKULL-THIGH INITIAL PET IMAGING CT ATTENUATION SKULL BASE MID-THIGH Mario Cardona, DO [address] [place] [address] [facility] [address] [place] [address] Referral ID Status Reason Start Date Expiration Date V isits Requested Visits Authorized [id number] Closed Auto-Generate d Referral 08/12/2022 09/11/2022 1 1 [facility] for visit Narrative* Diagnostic Procedure Only (Routine) - Closed Specialty Diagnoses / Procedures Referred By Contac t Referred To Contact [facility] Diagnoses Malignant neoplasm of unspecified part of unspecified bronchus or lung (HCC) 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 Lung mass Procedures NM PET/CT SKULL-THIGH SUBSEQUENT PET IMAGING CT ATTENUATION SKULL BASE MID-THIGH aMrio Cardona, DO [address] [place] [address] [facility] [address] [place] [address] Referral ID Status Reason Start Date Expiration Date V isits Requested Visits Authorized [id number] Closed Auto-Generate d Referral 12/09/2022 01/08/2023 1 1 [facility] for visit Narrative* Outpatient Procedure (Routine) - Closed Specialty Diagnoses / Procedures [facility] Diagnoses Abnormal PET scan of colon Malignant neoplasm of sigmoid colon (HCC) Procedures COLONOSCOPY DIAGNOSTIC COLONOSCOPY FLX DX W/COLLJ SPEC WHEN Artie Hendrickson MD [address] [place] [address] [facility] [address] [place] [address] Referral ID Status Reason Start Date Expiration Date V isits Requested Visits Authorized [id number] Closed Auto-Generate d Referral 02/12/2023 05/13/2023 1 1 [facility] for visit Narrative* Outpatient Procedure (Routine) - Closed Specialty Diagnoses / Procedures [facility] Diagnoses Abnormal PET scan of colon Procedures COLONOSCOPY DIAGNOSTIC COLONOSCOPY FLX DX W/COLLJ SPEC WHEN Cleo Benton MD [address] [facility] [place] [address] 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) Procedures NM PET/CT SKULL-THIGH SUBSEQUENT PET IMAGING CT ATTENUATION SKULL BASE MID-THIGH Mario Cardona DO [address] [place] [address] [facility] [address] [place] [address] Referral ID Status Reason Start Date Expiration Date V isits Requested Visits Authorized [id number] Closed Auto-Generate d Referral 05/25/2023 06/24/2023 1 1 [facility] Advance Directives No Advanced Directives Records FoundDocuments on File Type Date Recorded Patient Principal Process Engineer Expl anation Advance Directive(s) 11/24/2018 10:11 AM Advance Directive(s) 08/12/2016 10:50 AM Advance Directive(s) 01/20/2014 6:29 AM Advance Directive(s) 01/14/2014 10:49 AM Documents on File Type Date Recorded Patient Principal Process Engineer Expl anation Advance Directive(s) 11/24/2018 10:11 AM Advance Directive(s) 08/12/2016 10:50 AM Advance Directive(s) 01/20/2014 6:29 AM Advance Directive(s) 01/14/2014 10:49 AM Documents on File Type Date Recorded Patient Principal Process Engineer Expl anation Advance Directive(s) 01/20/2014 6:29 AM Advance Directive(s) 01/14/2014 10:49 AM Documents on File Type Date Recorded Patient Principal Process Engineer Expl anation Advance Directive(s) 01/20/2014 6:29 AM Advance Directive(s) 01/14/2014 10:49 AM Medications Administered Section Inactive Administered Medications - up to 3 most recent administrations Medication Order MAR Action Action Date Dose Rate Site nivolumab 400 mg in NaCl 0.9% 100 mL (OPDIVO) 400 mg, INTRAVENOUS, Administer over 30 Minutes, ONCE, 1 dose, On Thu10/15/21 at 1530, Approx Total Volume - Expires: 10/15/21 @ 2330 Administer with 0.2 micron filter. New Bag/Syringe/Bottle 10/15/2021 3:28 PM EDT 400 mg Inactive Administered Medications - up to 3 most recent administrations Medication Order MAR Action Action Date Dose Rate Site nivolumab 400 mg in NaCl 0.9% 100 mL (OPDIVO) 400 mg, INTRAVENOUS, Administer over 30 Minutes, ONCE, 1 dose, On Thu11/12/21 at 1600, exp 0830 11/13/21 (refrigerated) Administer with 0.2 micron filter. New Bag/Syringe/Bottle 11/12/2021 3:43 PM EDT 400 mg Inactive Administered Medications - up to 3 most recent administrations Medication Order MAR Action Action Date Dose Rate Site nivolumab 400 mg in NaCl 0.9% 100 mL (OPDIVO) 400 mg, INTRAVENOUS, Administer over 30 Minutes, ONCE, 1 dose, On Thu12/10/21 at 1530, Approx Total Volume -exp 2330 12/10/21 (room temp) Administer with 0.2 micron filter. Protect from light if utilizing refrigerator 7 day expiration. New Bag/Syringe/Bottle 12/10/2021 3:35 PM EDT 400 mg Inactive Administered Medications - up to 3 most recent administrations Medication Order MAR Action Action Date Dose Rate Site nivolumab 400 mg in NaCl 0.9% 100 mL (OPDIVO) 400 mg, INTRAVENOUS, Administer over 30 Minutes, ONCE, 1 dose, On Thu01/07/22 at 1430, exp 2230 01/07/22 (room temp) Administer with 0.2 micron filter. Protect from light if utilizing refrigerator 7 day expiration. New Bag/Syringe/Bottle 01/07/2022 2:33 PM EDT 400 mg Inactive Administered Medications - up to 3 most recent administrations Medication Order MAR Action Action Date Dose Rate Site nivolumab 400 mg in NaCl 0.9% 100 mL (OPDIVO) 400 mg, INTRAVENOUS, Administer over 30 Minutes, ONCE, 1 dose, On Thu04/03/22 at 1000, exp 1800 04/03/22 (room temp) Administer with 0.2 micron filter. Protect from light if utilizing refrigerator 7 day expiration. New Bag/Syringe/Bottle 04/03/2022 10:17 AM EDT 400 mg Inactive Administered Medications - up to 3 most recent administrations Medication Order MAR Action Action Date Dose Rate Site nivolumab 400 mg in NaCl 0.9% 100 mL (OPDIVO) 400 mg, INTRAVENOUS, Administer over 30 Minutes, ONCE, 1 dose, On Thu06/26/22 at 1530, exp 2300 06/26/22 (room temp) Administer with 0.2 micron filter. Protect from light if utilizing refrigerator 7 day expiration. New Bag/Syringe/Bottle 06/26/2022 3:30 PM EST 400 mg Inactive Administered Medications - up to 3 most recent administrations Medication Order MAR Action Action Date Dose Rate Site nivolumab 400 mg in NaCl 0.9% 100 mL (OPDIVO) 400 mg, INTRAVENOUS, Administer over 30 Minutes, ONCE, 1 dose, On [place] 07/24/22 at 1330, exp 2300 05/29/22 (room temp) Administer with 0.2 micron filter. Protect from light if utilizing refrigerator 7 day expiration. New Bag/Syringe/Bottle 07/24/2022 1:36 PM EST 400 mg Inactive Administered Medications - up to 3 most recent administrations Medication Order MAR Action Action Date Dose Rate Site diphenhydrAMINE 12.5-50 mg injection (BENADRYL) 12.5-50 mg, INTRAVENOUS, DIRECTED, Starting on [place] 02/12/23 at 1300, Until [place] 02/12/23 at 1659, DOSING DIRECTED BY PHYSICIAN FOR PROCEDURAL SEDATION ONLY, Intraprocedure Given 02/12/2023 12:55 PM EDT 50 mg fentaNYL 50 mcg/mL 25-100 mcg injection (SUBLIMAZE) 25-100 mcg, INTRAVENOUS, DIRECTED, Starting on [place] 02/12/23 at 1300, Until [place] 02/12/23 at 1659, DOSING DIRECTED BY PHYSICIAN FOR PROCEDURAL SEDATION ONLY, Intraprocedure Given 02/12/2023 12:53 PM EDT 50 mcg Inactive Administered Medications - up to 3 most recent administrations Medication Order MAR Action Action Date Dose Rate Site diphenhydrAMINE 12.5-50 mg injection (BENADRYL) 12.5-50 mg, INTRAVENOUS, DIRECTED, Starting on [place] 10/02/22 at 1130, Until [place] 10/02/22 at 1529, DOSING DIRECTED BY PHYSICIAN FOR PROCEDURAL SEDATION ONLY, Intraprocedure Given 10/02/2022 11:33 AM EDT 50 mg EPINEPHrine 0.1-1 mg injection 0.1-1 mg, INTRAVENOUS, DIRECTED, Starting on [place] 10/02/22 at 1330, Until [place] 10/02/22 at 1729, DOSING DIRECTED BY PHYSICIAN FOR PROCEDURAL SEDATION ONLY - NONCYTOTOXIC VESICANT -, Intraprocedure Given 10/02/2022 12:00 PM EDT 0.2 mg fentaNYL 50 mcg/mL 25-100 mcg injection (SUBLIMAZE) 25-100 mcg, INTRAVENOUS, DIRECTED, Starting on [place] 10/02/22 at 1130, Until [place] 10/02/22 at 1529, DOSING DIRECTED BY PHYSICIAN FOR PROCEDURAL SEDATION ONLY, Intraprocedure Given 10/02/2022 11:31 AM EDT 50 mcg Reason for Referral Specialty Diagnoses / Procedures Referred By Contjennifer t Referred To Contact CT IMAGING Diagnoses Malignant neoplasm of unspecified part of unspecified bronchus or lung (HCC) Procedures CT CHEST W IVCON DIAGNOSTIC COMPUTED TOMOGRAPHY THORAX W/CONTRAST Mario Cardona, DO [address] [facility] [place] [address] Ct Imaging Referral ID Status Reason Start Date Expiration Date V isits Requested Visits Authorized [id number] Closed Auto-Generate d Referral 03/11/2022 04/10/2023 1 1 Specialty Diagnoses / Procedures Referred By Contac t Referred To Contact CT IMAGING Diagnoses Malignant neoplasm of unspecified part of unspecified bronchus or lung (HCC) Procedures CT ABD/PEL W IVCON CT ABD & PELVIS W/CONTRAST Mario Cardona, DO [address] [facility] [address] [place] [address] Ct Imaging Referral ID Status Reason Start Date Expiration Date V isits Requested Visits Authorized [id number] Closed Auto-Generate d Referral 03/11/2022 04/10/2023 1 1 Specialty Diagnoses / Procedures Referred By Contac t Referred To Contact CT IMAGING Diagnoses 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 (HCC) Procedures CT CHEST W IVCON DIAGNOSTIC COMPUTED TOMOGRAPHY THORAX W/CONTRAST Mario Cardona, DO [address] [place] [address] Ct Imaging Referral ID Status Reason Start Date Expiration Date Visits Requested Visits Authorized [id number] Pending Review Auto-Generat ed Referral 05/28/2022 06/27/2023 1 1 Specialty Diagnoses / Procedures Referred By Contac t Referred To Contact CT IMAGING Diagnoses 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 (HCC) Procedures CT ABD/PEL W IVCON CT ABD & PELVIS W/CONTRAST Mario Cardona, DO [address] [facility] [address] [facility] [place] [address] Ct Imaging Referral ID Status Reason Start Date Expiration Date Visits Requested Visits Authorized [id number] Pending Review Auto-Generat ed Referral 05/28/2022 06/27/2023 1 1 Specialty Diagnoses / Procedures Referred By Contac t Referred To Contact Neurology Diagnoses Sensory neuropathy Procedures CONSULT TO NEUROLOGY OFFICE/OUTPATIENT NEW HIGH MDM 60-74 MINUTES Mario Cardona, DO [address] [place] [address] Referral ID Status Reason Start Date Expiration Date Visits Requested Visits Authorized [id number] Authorized PCP Requested Referral 09/17/2022 09/17/2023 1 1 Specialty Diagnoses / Procedures Referred By Contac t Referred To Contact CT IMAGING Diagnoses 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 Procedures CT CHEST W IVCON DIAGNOSTIC COMPUTED TOMOGRAPHY THORAX W/CONTRAST Mario Cardona, DO [address] [place] [address] [place] [address] Referral ID Status Reason Start Date Expiration Date V isits Requested Visits Authorized [id number] Closed Auto-Generate d Referral 07/21/2022 08/20/2022 2 2 Specialty Diagnoses / Procedures Referred By Contac t Referred To Contact CT IMAGING Diagnoses 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 Procedures CT ABD/PEL W IVCON CT ABD & PELVIS W/CONTRAST Mario Cardona, DO [address] [facility] [place] [address] [place] [address] Referral ID Status Reason Start Date Expiration Date V isits Requested Visits Authorized [id number] Closed Auto-Generate d Referral 07/21/2022 08/20/2022 1 1 Specialty Diagnoses / Procedures Referred By Contac t Referred To Contact MR IMAGING Diagnoses Brain metastasis Procedures MRI BRAIN WO/W IVCON MRI BRAIN BRAIN STEM W/O W/CONTRAST MATERIAL Dorcas Montenegro MD [address] [place] [id number] [place] [address] Referral ID Status Reason Start Date Expiration Date V isits Requested Visits Authorized [id number] Closed Auto-Generate d Referral 07/14/2022 08/13/2022 1 1 Specialty Diagnoses / Procedures Referred By Contac t Referred To Contact MR IMAGING Diagnoses Malignant neoplasm of unspecified part of unspecified bronchus or lung (HCC) 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) Procedures MRI BRAIN WO/W IVCON MRI BRAIN BRAIN STEM W/O W/CONTRAST MATERIAL Mario Cardona, DO [address] [place] [address] [place] [address] Referral ID Status Reason Start Date Expiration Date Visits Requested Visits Authorized [id number] Pending Review Auto-Generat ed Referral 05/25/2023 06/23/2024 1 1 Summary Purpose Family History No Family History Records FoundNo Family History Records Found Additional Source Comments Source Comments (unrecognize d section and content) In the event this informatio n is protected by the Federal Confidentiality of Alcohol and Drug Abuse Patient Records regulations: The Federal rules restrict any use of the information to criminally investigate or prosecute any alcohol or drug abuse patient.[facility] the event this information is protected by the Federal Confidentiality of Alcohol and Drug Abuse Patient Records regulations: The Federal rules restrict any use of the information to criminally investigate or prosecute any alcohol or drug abuse patient.[facility]In the event this information is protected by the Federal Confidentiality of Alcohol and Drug Abuse Patient Records regulations: The Federal rules restrict any use of the information to criminally investigate or prosecute any alcohol or drug abuse patient.[facility]In the event this information is protected by the Federal Confidentiality of Alcohol and Drug Abuse Patient Records regulations: The Federal rules restrict any use of the information to criminally investigate or prosecute any alcohol or drug abuse patient.[facility]In the event this information is protected by the Federal Confidentiality of Alcohol and Drug Abuse Patient Records regulations: The Federal rules restrict any use of the information to criminally investigate or prosecute any alcohol or drug abuse patient.[facility]In the event this information is protected by the Federal Confidentiality of Alcohol and Drug Abuse Patient Records regulations: The Federal rules restrict any use of the information to criminally investigate or prosecute any alcohol or drug abuse patient.[facility]In the event this information is protected by the Federal Confidentiality of Alcohol and Drug Abuse Patient Records regulations: The Federal rules restrict any use of the information to criminally investigate or prosecute any alcohol or drug abuse patient.[facility] HospitalIn the event this information is protected by the Federal Confidentiality of Alcohol and Drug Abuse Patient Records regulations: The Federal rules restrict any use of the information to criminally investigate or prosecute any alcohol or drug abuse patient.[facility] HospitalIn the event this information is protected by the Federal Confidentiality of Alcohol and Drug Abuse Patient Records regulations: The Federal rules restrict any use of the information to criminally investigate or prosecute any alcohol or drug abuse patient.[facility] HospitalIn the event this information is protected by the Federal Confidentiality of Alcohol and Drug Abuse Patient Records regulations: The Federal rules restrict any use of the information to criminally investigate or prosecute any alcohol or drug abuse patient.[facility] HospitalIn the event this information is protected by the Federal Confidentiality of Alcohol and Drug Abuse Patient Records regulations: The Federal rules restrict any use of the information to criminally investigate or prosecute any alcohol or drug abuse patient.[facility] HospitalIn the event this information is protected by the Federal Confidentiality of Alcohol and Drug Abuse Patient Records regulations: The Federal rules restrict any use of the information to criminally investigate or prosecute any alcohol or drug abuse patient.[facility] HospitalIn the event this information is protected by the Federal Confidentiality of Alcohol and Drug Abuse Patient Records regulations: The Federal rules restrict any use of the information to criminally investigate or prosecute any alcohol or drug abuse patient.[facility] HospitalIn the event this information is protected by the Federal Confidentiality of Alcohol and Drug Abuse Patient Records regulations: The Federal rules restrict any use of the information to criminally investigate or prosecute any alcohol or drug abuse patient.[facility] HospitalIn the event this information is protected by the Federal Confidentiality of Alcohol and Drug Abuse Patient Records regulations: The Federal rules restrict any use of the information to criminally investigate or prosecute any alcohol or drug abuse patient.[facility] HospitalIn the event this information is protected by the Federal Confidentiality of Alcohol and Drug Abuse Patient Records regulations: The Federal rules restrict any use of the information to criminally investigate or prosecute any alcohol or drug abuse patient.[facility] HospitalIn the event this information is protected by the Federal Confidentiality of Alcohol and Drug Abuse Patient Records regulations: The Federal rules restrict any use of the information to criminally investigate or prosecute any alcohol or drug abuse patient.[facility] HospitalIn the event this information is protected by the Federal Confidentiality of Alcohol and Drug Abuse Patient Records regulations: The Federal rules restrict any use of the information to criminally investigate or prosecute any alcohol or drug abuse patient.[facility] HospitalIn the event this information is protected by the Federal Confidentiality of Alcohol and Drug Abuse Patient Records regulations: The Federal rules restrict any use of the information to criminally investigate or prosecute any alcohol or drug abuse patient.[facility] HospitalIn the event this information is protected by the Federal Confidentiality of Alcohol and Drug Abuse Patient Records regulations: The Federal rules restrict any use of the information to criminally investigate or prosecute any alcohol or drug abuse patient.[facility] HospitalIn the event this information is protected by the Federal Confidentiality of Alcohol and Drug Abuse Patient Records regulations: The Federal rules restrict any use of the information to criminally investigate or prosecute any alcohol or drug abuse patient.[facility] HospitalIn the event this information is protected by the Federal Confidentiality of Alcohol and Drug Abuse Patient Records regulations: The Federal rules restrict any use of the information to criminally investigate or prosecute any alcohol or drug abuse patient.[facility] HospitalIn the event this information is protected by the Federal Confidentiality of Alcohol and Drug Abuse Patient Records regulations: The Federal rules restrict any use of the information to criminally investigate or prosecute any alcohol or drug abuse patient.[facility] HospitalIn the event this information is protected by the Federal Confidentiality of Alcohol and Drug Abuse Patient Records regulations: The Federal rules restrict any use of the information to criminally investigate or prosecute any alcohol or drug abuse patient.[facility] HospitalIn the event this information is protected by the Federal Confidentiality of Alcohol and Drug Abuse Patient Records regulations: The Federal rules restrict any use of the information to criminally investigate or prosecute any alcohol or drug abuse patient.[facility] HospitalIn the event this information is protected by the Federal Confidentiality of Alcohol and Drug Abuse Patient Records regulations: The Federal rules restrict any use of the information to criminally investigate or prosecute any alcohol or drug abuse patient.[facility] HospitalIn the event this information is protected by the Federal Confidentiality of Alcohol and Drug Abuse Patient Records regulations: The Federal rules restrict any use of the information to criminally investigate or prosecute any alcohol or drug abuse patient.[facility] HospitalIn the event this information is protected by the Federal Confidentiality of Alcohol and Drug Abuse Patient Records regulations: The Federal rules restrict any use of the information to criminally investigate or prosecute any alcohol or drug abuse patient.[facility] HospitalIn the event this information is protected by the Federal Confidentiality of Alcohol and Drug Abuse Patient Records regulations: The Federal rules restrict any use of the information to criminally investigate or prosecute any alcohol or drug abuse patient.[facility] HospitalIn the event this information is protected by the Federal Confidentiality of Alcohol and Drug Abuse Patient Records regulations: The Federal rules restrict any use of the information to criminally investigate or prosecute any alcohol or drug abuse patient.[facility] HospitalIn the event this information is protected by the Federal Confidentiality of Alcohol and Drug Abuse Patient Records regulations: The Federal rules restrict any use of the information to criminally investigate or prosecute any alcohol or drug abuse patient.[facility] HospitalIn the event this information is protected by the Federal Confidentiality of Alcohol and Drug Abuse Patient Records regulations: The Federal rules restrict any use of the information to criminally investigate or prosecute any alcohol or drug abuse patient.[facility] HospitalIn the event this information is protected by the Federal Confidentiality of Alcohol and Drug Abuse Patient Records regulations: The Federal rules restrict any use of the information to criminally investigate or prosecute any alcohol or drug abuse patient.[facility] HospitalIn the event this information is protected by the Federal Confidentiality of Alcohol and Drug Abuse Patient Records regulations: The Federal rules restrict any use of the information to criminally investigate or prosecute any alcohol or drug abuse patient.[facility] HospitalIn the event this information is protected by the Federal Confidentiality of Alcohol and Drug Abuse Patient Records regulations: The Federal rules restrict any use of the information to criminally investigate or prosecute any alcohol or drug abuse patient.[facility] HospitalIn the event this information is protected by the Federal Confidentiality of Alcohol and Drug Abuse Patient Records regulations: The Federal rules restrict any use of the information to criminally investigate or prosecute any alcohol or drug abuse patient.[facility] HospitalIn the event this information is protected by the Federal Confidentiality of Alcohol and Drug Abuse Patient Records regulations: The Federal rules restrict any use of the information to criminally investigate or prosecute any alcohol or drug abuse patient.[facility] HospitalIn the event this information is protected by the Federal Confidentiality of Alcohol and Drug Abuse Patient Records regulations: The Federal rules restrict any use of the information to criminally investigate or prosecute any alcohol or drug abuse patient.[facility] HospitalIn the event this information is protected by the Federal Confidentiality of Alcohol and Drug Abuse Patient Records regulations: The Federal rules restrict any use of the information to criminally investigate or prosecute any alcohol or drug abuse patient.[facility] HospitalIn the event this information is protected by the Federal Confidentiality of Alcohol and Drug Abuse Patient Records regulations: The Federal rules restrict any use of the information to criminally investigate or prosecute any alcohol or drug abuse patient.[facility] HospitalIn the event this information is protected by the Federal Confidentiality of Alcohol and Drug Abuse Patient Records regulations: The Federal rules restrict any use of the information to criminally investigate or prosecute any alcohol or drug abuse patient.[facility] HospitalIn the event this information is protected by the Federal Confidentiality of Alcohol and Drug Abuse Patient Records regulations: The Federal rules restrict any use of the information to criminally investigate or prosecute any alcohol or drug abuse patient.[facility] HospitalIn the event this information is protected by the Federal Confidentiality of Alcohol and Drug Abuse Patient Records regulations: The Federal rules restrict any use of the information to criminally investigate or prosecute any alcohol or drug abuse patient.[facility] HospitalIn the event this information is protected by the Federal Confidentiality of Alcohol and Drug Abuse Patient Records regulations: The Federal rules restrict any use of the information to criminally investigate or prosecute any alcohol or drug abuse patient.[facility] HospitalIn the event this information is protected by the Federal Confidentiality of Alcohol and Drug Abuse Patient Records regulations: The Federal rules restrict any use of the information to criminally investigate or prosecute any alcohol or drug abuse patient.[facility] HospitalIn the event this information is protected by the Federal Confidentiality of Alcohol and Drug Abuse Patient Records regulations: The Federal rules restrict any use of the information to criminally investigate or prosecute any alcohol or drug abuse patient.[facility] HospitalIn the event this information is protected by the Federal Confidentiality of Alcohol and Drug Abuse Patient Records regulations: The Federal rules restrict any use of the information to criminally investigate or prosecute any alcohol or drug abuse patient.[facility] HospitalIn the event this information is protected by the Federal Confidentiality of Alcohol and Drug Abuse Patient Records regulations: The Federal rules restrict any use of the information to criminally investigate or prosecute any alcohol or drug abuse patient.[facility] HospitalIn the event this information is protected by the Federal Confidentiality of Alcohol and Drug Abuse Patient Records regulations: The Federal rules restrict any use of the information to criminally investigate or prosecute any alcohol or drug abuse patient.[facility] HospitalIn the event this information is protected by the Federal Confidentiality of Alcohol and Drug Abuse Patient Records regulations: The Federal rules restrict any use of the information to criminally investigate or prosecute any alcohol or drug abuse patient.[facility] HospitalIn the event this information is protected by the Federal Confidentiality of Alcohol and Drug Abuse Patient Records regulations: The Federal rules restrict any use of the information to criminally investigate or prosecute any alcohol or drug abuse patient.[facility] HospitalIn the event this information is protected by the Federal Confidentiality of Alcohol and Drug Abuse Patient Records regulations: The Federal rules restrict any use of the information to criminally investigate or prosecute any alcohol or drug abuse patient.[facility] HospitalIn the event this information is protected by the Federal Confidentiality of Alcohol and Drug Abuse Patient Records regulations: The Federal rules restrict any use of the information to criminally investigate or prosecute any alcohol or drug abuse patient.[facility] HospitalIn the event this information is protected by the Federal Confidentiality of Alcohol and Drug Abuse Patient Records regulations: The Federal rules restrict any use of the information to criminally investigate or prosecute any alcohol or drug abuse patient.[facility] HospitalIn the event this information is protected by the Federal Confidentiality of Alcohol and Drug Abuse Patient Records regulations: The Federal rules restrict any use of the information to criminally investigate or prosecute any alcohol or drug abuse patient.[facility] HospitalIn the event this information is protected by the Federal Confidentiality of Alcohol and Drug Abuse Patient Records regulations: The Federal rules restrict any use of the information to criminally investigate or prosecute any alcohol or drug abuse patient.[facility] Reason for Visit (unrecogniz ed section and content) Reason Comments Chemotherapy Treatment Specialty Diagnoses / Procedures Referred By Contjennifer t Referred To Contact Diagnoses 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) Procedures INJECTION, NIVOLUMAB Mario Cardona DO [address] [place] [address] [facility] [address] [place] [address] Referral ID Status Reason Start Date Expiration Date V isits Requested Visits Authorized [id number] Authorized 04/26/2020 10/21/2021 21 21 Referral ID Status Reason Start Date Expiration Date V isits Requested Visits Authorized [id number] Authorized 04/26/2020 01/20/2022 21 21 Specialty Diagnoses / Procedures Referred By Contac t Referred To Contact Diagnoses 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) Procedures INJECTION, NIVOLUMAB Mario Cardona, DO [address] [place] [address] [facility] [address] [place] [address] Reason Comments Follow Up Add iron studies Reason Comments Results Low iron Reason Onset Date Comments Refill Request 02/07/2022 Reason Comments Blood Draw ([facility]) Reason Comments Patient Update Reason Comments Radiology CT Specialty Diagnoses / Procedures Referred By Contac t Referred To Contact CT IMAGING Diagnoses Malignant neoplasm of unspecified part of unspecified bronchus or lung (HCC) Procedures CT CHEST W IVCON DIAGNOSTIC COMPUTED TOMOGRAPHY THORAX W/CONTRAST Mario Cardona, DO [address] [place] [address] Ct Imaging Referral ID Status Reason Start Date Expiration Date V isits Requested Visits Authorized [id number] Closed Auto-Generate d Referral 03/11/2022 04/10/2023 1 1 Referral ID Status Reason Start Date Expiration Date V isits Requested Visits Authorized [id number] Authorized 04/26/2020 08/12/2022 28 28 Reason Comments Establish Care Reason Comments Established Patient Reason Comments Numbness Left arm Specialty Diagnoses / Procedures Referred By Contac t Referred To Contact Diagnoses 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) Procedures INJECTION, NIVOLUMAB Mario Cardona, DO [address] [place] [address] [facility] [address] [place] [address] Reason Comments Follow Up Reason Comments Chemotherapy Treatment Reason Comments Radiology NM Reason Comments Consult colonoscopy Reason Comments Results PET scan Reason Comments Established Patient Reason Comments Follow Up colonoscopy Reason Comments Consult Neuropathy Specialty Diagnoses / Procedures Referred By Contac t Referred To Contact Neurology Diagnoses Sensory neuropathy Procedures CONSULT TO NEUROLOGY OFFICE/OUTPATIENT NEW HIGH MDM 60-74 MINUTES Mario Cardona, DO [address] [place] [address] Referral ID Status Reason Start Date Expiration Date V isits Requested Visits Authorized [id number] Closed PCP Requested Referral 09/17/2022 09/17/2023 1 1 Reason Comments Patient Question Reason Onset Date Comments Refill Request 10/20/2022 Reason Comments Patient Question Colonoscopy blood cl ots Reason Comments Radiology NM Reason Comments Follow Up Pet scan Reason Comments Follow Up 1 month follow up Reason Comments [place] Reason Onset Date Comments Immunizations 04/10/2023 Flu vaccination Specialty Diagnoses / Procedures Referred By Contac t Referred To Contact CT IMAGING Diagnoses 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 Procedures CT CHEST W IVCON DIAGNOSTIC COMPUTED TOMOGRAPHY THORAX W/CONTRAST Mario Cardona, DO [address] [place] [address] Ct Imaging [facility] Referral ID Status Reason Start Date Expiration Date V isits Requested Visits Authorized [id number] Closed Auto-Generate d Referral 07/21/2022 08/20/2022 2 2 Specialty Diagnoses / Procedures Referred By Contac t Referred To Contact MR IMAGING Diagnoses Brain metastasis Procedures MRI BRAIN WO/W IVCON MRI BRAIN BRAIN STEM W/O W/CONTRAST MATERIAL Dorcas Montenegro MD [address] [place], [place] [id number] Mr Imaging [facility] Referral ID Status Reason Start Date Expiration Date V isits Requested Visits Authorized [id number] Closed Auto-Generate d Referral 07/14/2022 08/13/2022 1 1 Reason Onset Date Comments Refill Request 05/22/2023 Reason Comments Results Care Teams (unrecognized sec tion and content) Dosimetrist Relationship Specialty Start Date End Date Elaine Arteaga MD [address] [facility] [place] [address] PCP - General Family Practice 09/17/21 Dosimetrist Relationship Specialty Start Date End Date Elaine Arteaga MD [address] [facility] [place] [address] PCP - General Family Practice 09/17/21 Dosimetrist Relationship Specialty Start Date End Date Elaine Arteaga MD [address] [facility] [place] [address] PCP - General Family Practice 09/17/21 Dosimetrist Relationship Specialty Start Date End Date Elaine Arteaga MD [address] [facility] [place] [address] PCP - General Family Practice 09/17/21 Dosimetrist Relationship Specialty Start Date End Date Elaine Arteaga MD [address] [facility] [place] [address] PCP - General Family Practice 09/17/21 Dosimetrist Relationship Specialty Start Date End Date Elaine Arteaga MD [address] [facility] [place] [address] PCP - General Family Medicine 09/17/21 Dosimetrist Relationship Specialty Start Date End Date Elaine Arteaga MD [address] [facility] [place] [address] PCP - General Family Medicine 09/17/21 Dosimetrist Relationship Specialty Start Date End Date Elaine Arteaga MD [address] [facility] [place] [address] PCP - General Family Medicine 09/17/21 Dosimetrist Relationship Specialty Start Date End Date Elaine Arteaga MD [address] [facility] [place] [address] PCP - General Family Medicine 09/17/21 Dosimetrist Relationship Specialty Start Date End Date Elaine Arteaga MD [address] [facility] [place] [address] PCP - General Family Medicine 09/17/21 Dosimetrist Relationship Specialty Start Date End Date Elaine Arteaga MD [address] [facility] [place] [address] PCP - General Family Medicine 09/17/21 Dosimetrist Relationship Specialty Start Date End Date Elaine Arteaga MD [address] [facility] [place] [address] PCP - General Family Medicine 09/17/21 Dosimetrist Relationship Specialty Start Date End Date Elaine Arteaga MD [address] [facility] [place] [address] PCP - General Family Medicine 09/17/21 Dosimetrist Relationship Specialty Start Date End Date Elaine Arteaga MD [address] [facility] [place] [address] PCP - General Family Medicine 09/17/21 Dosimetrist Relationship Specialty Start Date End Date Elaine Arteaga MD [address] [facility] [place] [address] PCP - General Family Medicine 09/17/21 Dosimetrist Relationship Specialty Start Date End Date Elaine Arteaga MD [address] [facility] [place] [address] PCP - General Family Medicine 09/17/21 Dosimetrist Relationship Specialty Start Date End Date Elaine Arteaga MD [address] [facility] [place] [address] PCP - General Family Medicine 09/17/21 Dosimetrist Relationship Specialty Start Date End Date Elaine Arteaga MD [address] [facility] [place] [address] PCP - General Family Medicine 09/17/21 Dosimetrist Relationship Specialty Start Date End Date Elaine Arteaga MD [address] [facility] [place] [address] PCP - General Family Medicine 09/17/21 Dosimetrist Relationship Specialty Start Date End Date Elaine Arteaga MD [address] [facility] [place] [address] PCP - General Family Medicine 09/17/21 Dosimetrist Relationship Specialty Start Date End Date Elaine Arteaga MD [address] [place] [address] PCP - General Family Medicine 09/17/21 Dosimetrist Relationship Specialty Start Date End Date Elaine Arteaga MD [address] [facility] [place] [address] PCP - General Family Medicine 09/17/21 Dosimetrist Relationship Specialty Start Date End Date Elaine Arteaga MD [address] [facility] [place] [address] PCP - General Family Medicine 09/17/21 Dosimetrist Relationship Specialty Start Date End Date Elaine Arteaga MD [address] [place] [address] PCP - General Family Medicine 09/17/21 Dosimetrist Relationship Specialty Start Date End Date Elaine Arteaga MD [address] [facility] [place] [address] PCP - General Family Medicine 09/17/21 Dosimetrist Relationship Specialty Start Date End Date Elaine Arteaga MD [address] [facility] [place] [address] PCP - General Family Medicine 09/17/21 Dosimetrist Relationship Specialty Start Date End Date Elaine Arteaga MD [address] [facility] [place] [address] PCP - General Family Medicine 09/17/21 Dosimetrist Relationship Specialty Start Date End Date Elaine Arteaga MD [address] [facility] [place] [address] PCP - General Family Medicine 09/17/21 Dosimetrist Relationship Specialty Start Date End Date Elaine Arteaag MD [address] [place] [address] PCP - General Family Medicine 09/17/21 Dosimetrist Relationship Specialty Start Date End Date Elaine Arteaga MD [address] [place] [address] PCP - General Family Medicine 09/17/21 Dosimetrist Relationship Specialty Start Date End Date Elaine Arteaga MD [address] [facility] [place] [address] PCP - General Family Medicine 09/17/21 Dosimetrist Relationship Specialty Start Date End Date Elaine Arteaga MD [address] [facility] [place] [address] PCP - General Family Medicine 09/17/21 Dosimetrist Relationship Specialty Start Date End Date Elaine Arteaga MD [address] [facility] [place] [address] PCP - General Family Medicine 09/17/21 Dosimetrist Relationship Specialty Start Date End Date Elaine Arteaga MD [address] [facility] [place] [address] PCP - General Family Medicine 09/17/21 Dosimetrist Relationship Specialty Start Date End Date Elaine Arteaga MD [address] [place] [address] PCP - General Family Medicine 09/17/21 Dosimetrist Relationship Specialty Start Date End Date Elaine Arteaga MD [address] [facility] [place] [address] PCP - General Family Medicine 09/17/21 Dosimetrist Relationship Specialty Start Date End Date Elaine Arteaga MD [address] [facility], [place] [address] PCP - General Family Medicine 09/17/21 Dosimetrist Relationship Specialty Start Date End Date Elaine Arteaga MD [address] [place] [address] PCP - General Family Medicine 09/17/21 INFORMATION SOURCE (unrecogn ized section and content) DATE CREATED AUTHOR AUTHOR'S ORGANIZ ATION 07/14/2023 [facility] FOR RECORDS PERTAINING TO PATIENTS WHO ARE OR HAVE BEEN ENROLLED IN A CHEMICAL DEPENDENCY/SUBSTANCEABUSE PROGRAM, SOME INFORMATION MAY BE OMITTED. This clinical summary was aggregated from multiple sources. Caution should be exercised in using it in the provision of clinical care. This summary normalizes information from multiple sources, and as a consequence, information in this document may materially change the coding, format and clinical context of patient data. In addition, data may be omitted in some cases. CLINICAL DECISIONS SHOULD BE BASED ON THE PRIMARY CLINICAL RECORDS. [employer] provides no warranty or guarantee of the accuracy or completeness of information in this document.
[2023-08-16 17:17] LABS: Anion Gap 4 (5-15); BUN 21 mg/dL (7-18); BUN/Creat Ratio 24.7 RATIO (10-20); Calcium,Total 9.3 mg/dL (8.5-10.1); Chloride 107 mmol/L (98-107); Creatinine, Serum 0.85 mg/dL (0.55-1.02); EST Glomerular Filtration Rate 69 mL/min (>60); Est Glom Filt Rate - Afr Amer 83 mL/min (>60); Estimated Creatinine Clearance 49.81 ml/min; Glucose 135 mg/dL (74-106); Lipase 29 U/L (13-75); Potassium 3.4 mmol/L (3.5-5.1); Sodium Level 141 mmol/L (136-145); Troponin-I HS 8 pg/mL (3.0-54.0)
[2023-08-16 18:36] VITALS: BP 126/72; PULSE 76; RESP 15; TEMP 36.4; O2SAT 99
== END 2023-08-16 18:37 | disposition home or self-care (01) ==
PROVIDERS: Emergency Provider Emergency Medicine; PCP Family Medicine; Visit Provider Emergency Medicine
DX: K21.9 Gastro-esophageal reflux disease without esophagitis (principal); R07.9 Chest pain, unspecified; F41.9 Anxiety disorder, unspecified; Z85.118 Personal history of other malignant neoplasm of bronchus and lung
CPT/HCPCS: 36591; 71045; 80048; 83690; 84484; 85025; 93005; 99285; A4216